=== PATIENT | male | born 1945 | race Caucasian/White ===

== ENCOUNTER 2022-06-18 15:21 | Emergency (ER) | payer OTHER ==
[~2022-06-18] VITALS: Ht 177.8 cm; Wt 76.2 kg
--- NOTE | 2022-06-18 15:26 | NUR ---
RAZ MALIK FROM [facility] FOR HYPERGLYCEMIA,"HIGH" AT 1130. ATTACHED TO MONITOR, PT VITALS ARE WITHIN NORMAL LIMITS. AWAITING MD ORDERS.
[2022-06-18] MEDS ORDERED: FAMO20TA8 PO (16:06)
[2022-06-18] MEDS ORDERED: ASPI-1169 PO (16:06)
[2022-06-18] MEDS ORDERED: GLUC1KIT IM (16:06)
[2022-06-18] MEDS ORDERED: ACET-868 PO (16:06)
[2022-06-18] MEDS ORDERED: CLOP75TA15 PO (16:06)
[2022-06-18] MEDS ORDERED: ATOR40TA PO (16:06)
[2022-06-18] MEDS ORDERED: LISI20TA30 PO (16:07)
[2022-06-18] MEDS ORDERED: MAGN400O6 PO (16:07)
[2022-06-18] MEDS ORDERED: INSU100V7 SQ (16:07)
[2022-06-18] MEDS ORDERED: INSU100V39 SQ (16:07)
[2022-06-18] MEDS ORDERED: METO25TA20 PO (16:07)
[2022-06-18] MEDS ORDERED: DEXT38GE12 PO (16:07)
[2022-06-18] MEDS ORDERED: INSU100V27 SQ (16:07)
[2022-06-18] MEDS ORDERED: ACET-2605 PO (16:07)
--- NOTE | 2022-06-18 17:14 | NUR ---
IV ESTABLISHED R UPPER ARM 20G. LABS DRAWN AND COLLECTED.
--- NOTE | 2022-06-18 17:18 | NUR ---
COVID TEST COLLECTED AND SENT
--- NOTE | 2022-06-18 17:30 | NUR ---
PT UNABLE TO PROVIDE URINE, URINAL AT BEDSIDE.
[2022-06-18 17:34] LABS: BASOPHILS % (AUTO) 0.1 % (0.0-2.0); HEMATOCRIT 40 % (39-51); LYMPHOCYTES # (AUTO) 1.3 K/uL (0.8-4.8); LYMPHOCYTES % (AUTO) 9.3 % (20.0-44.0); MEAN CORPUSCULAR HGB CONC 33 g/dl (31.0-36.0); MEAN CORPUSCULAR VOLUME 98 fL (80-96); MONOCYTES # (AUTO) 0.8 K/uL (0.1-1.30); MONOCYTES % (AUTO) 5.6 % (2.0-12.0); NEUTROPHILS # (AUTO) 12.2 K/uL (1.8-8.9); PLATELET COUNT (AUTO) 392 K/uL (150-450); RED BLOOD CELL COUNT(AUTO) 4.08 MIL/uL (4.5-6.0); WHITE BLOOD COUNT (AUTO) 14.4 K/uL (4.3-11.0)
[2022-06-18 17:51] LABS: ALANINE AMINOTRANSFERASE 16 U/L (12-78); ALBUMIN 3.9 g/dL (3.4-5.0); ALKALINE PHOSPHATASE 99 U/L (46-116); ASPARTATE AMINOTRANSFERASE 12 U/L (15-37); BILIRUBIN,DIRECT 0.1 mg/dL (0.0-0.2); BILIRUBIN,TOTAL 0.5 mg/dL (0.2-1.0); CALCIUM, SERUM 9.9 mg/dL (8.5-10.1); CARBON DIOXIDE 19 mmol/L (21-32); CHLORIDE 92 mmol/L (98-107); CREATININE 2.9 mg/dL (0.6-1.3); POTASSIUM 4.9 mmol/L (3.5-5.1); SODIUM SERUM 129 mmol/L (136-145); TOTAL PROTEIN, SERUM 7.5 g/dL (6.4-8.2); UREA NITROGEN, BLOOD 76 mg/dL (7-18)
[2022-06-18 17:55] LABS: GLUCOSE 592 mg/dL (74-106)
--- NOTE | 2022-06-18 18:00 | NUR ---
CALLED [facility] [phone] [place].
--- NOTE | 2022-06-18 18:09 | NUR ---
VS 111/50 PR70 SPO2 100% RR 18 DR. CHEN WILL CALL US BACK.
--- NOTE | 2022-06-18 18:24 | NUR ---
LAB CALLED. COVID POSITIVE DR OAKES AWARE
[2022-06-18] MEDS ORDERED: INSULIN REGULAR, HUMAN 100 UNIT/ML 10 ML VIAL SQ ONE (18:30)
[2022-06-18] MEDS ORDERED: IV PREMIX NS +20MEQ KCL 1 L IV PRN (18:30)
[2022-06-18] MEDS ORDERED: IV NS 0.9% 1,000 ML BAG IV ONE (18:30)
[2022-06-18] MEDS ORDERED: INSULIN REGULAR, HUMAN 100 UNIT/ML 10 ML VIAL ONE (18:36)
[2022-06-18] MEDS ORDERED: INSULIN REGULAR, HUMAN 100 UNITS in IV NS 0.9% 100 ML IV PRN ×2 (19:30)
--- NOTE | 2022-06-18 19:35 | NUR ---
RECHECKED GLU- 576 AWARE
--- NOTE | 2022-06-18 20:43 | NUR ---
ACCEPTED AT [facility] UNDER MD JARAMILLO, ROOM 6332, REPORT [phone] TRANSPORT ETA AROUND 2200 WILL CALL BACK IF LATER
[2022-06-18 20:57] LABS: CALCIUM, SERUM 8.8 mg/dL (8.5-10.1); CARBON DIOXIDE 13 mmol/L (21-32); CHLORIDE 97 mmol/L (98-107); CREATININE 2.7 mg/dL (0.6-1.3); POTASSIUM 5.3 mmol/L (3.5-5.1); SODIUM SERUM 129 mmol/L (136-145); UREA NITROGEN, BLOOD 74 mg/dL (7-18)
[2022-06-18 21:00] LABS: GLUCOSE 582 mg/dL (74-106)
--- NOTE | 2022-06-18 21:00 | NUR ---
GLUCOSE 582; DR. VIOLETTE GUNN AWARE
--- NOTE | 2022-06-18 21:02 | NUR ---
Se rios in ED - 06/18/22 at 2104 by CHRISS [phone]. PATIENT INSPECTOR PACKER TIME 2330H. CN MADE AWARE.
--- NOTE | 2022-06-18 21:04 | NUR ---
RECEIVED CALL FROM LINDA ([facility]) [phone]. PATIENT AUDIO VIDEO REPAIRER TIME 2330H. CN MADE AWARE.
--- NOTE | 2022-06-18 21:50 | NUR ---
REPORT GIVEN TO YVONNE GILLETTE [facility] ROOM 7302 FOR JAI
--- NOTE | 2022-06-18 22:09 | NUR ---
RECHECKED GLU- 370 AWARE
--- NOTE | 2022-06-18 22:10 | NUR ---
ORDERS TO DISCONTINUE INSULIN INF. IF BLOOD GLUCOSE IS 250
--- NOTE | 2022-06-18 22:15 | NUR ---
URINE SAMPLE SENT TO LAB
--- NOTE | 2022-06-18 22:21 | NUR ---
UPDATED ROOM NUMBER: [id number]
[2022-06-18 22:55] LABS: BILIRUBIN,URINE 1+ (NEGATIVE); COLOR,URINE YELLOW (YELLOW); LEUKOCYTE ESTERASE ,URINE NEGATIVE (NEGATIVE); NITRITE, URINE NEGATIVE (NEGATIVE); PH,URINE 5.5 (5.0-8.0); PROTEIN,URINE NEGATIVE (NEGATIVE); UGLUCOSE 3+ mg/dL (NEGATIVE); UROBILINOGEN,URINE 0.2 EU/dL (0.2)
[2022-06-18 23:02] LABS: BACTERIA,URINE Rare /HPF (None Seen); SQUAMOUS EPITHELIAL CELL,UR Few /HPF (None Seen); WBC,URINE 0-2 /HPF (0-3)
--- NOTE | 2022-06-18 23:23 | NUR ---
RECHECKED GLU- 279 INSULIN INF. DISCONTINUED.
--- NOTE | 2022-06-18 23:42 | NUR ---
REPORT GIVEN TO EMS AT BEDSIDE
[2022-06-18 23:43] VITALS: BP 136/75
== END 2022-06-18 23:43 | disposition short-term general hospital (02) ==
LOC: ER 15:27
DX: E11.10 Type 2 diabetes mellitus with ketoacidosis without coma (principal); U07.1 COVID-19; Z79.4 Long term (current) use of insulin; E11.22 Type 2 diabetes mellitus with diabetic chronic kidney disease; N18.9 Chronic kidney disease, unspecified; F03.90 Unspecified dementia, unspecified severity, without behavioral disturbance, psychotic disturbance, mood disturbance, and anxiety; I25.10 Atherosclerotic heart disease of native coronary artery without angina pectoris; Z95.5 Presence of coronary angioplasty implant and graft; K21.9 Gastro-esophageal reflux disease without esophagitis; Z86.73 Personal history of transient ischemic attack (TIA), and cerebral infarction without residual deficits; I10 Essential (primary) hypertension; E11.51 Type 2 diabetes mellitus with diabetic peripheral angiopathy without gangrene; M81.0 Age-related osteoporosis without current pathological fracture; Z79.899 Other long term (current) drug therapy; Z79.82 Long term (current) use of aspirin; Z79.02 Long term (current) use of antithrombotics/antiplatelets
CPT/HCPCS: 99291; 96365; 96366; 71045; 96361; 87426; 93005; 85025; 80048 ×2; 87086; 83605; 80076; 81001; 36415; 84484; 82962 ×5; 96372; J7030; J3490; C9803; J1815 ×2

== ENCOUNTER 2022-07-14 03:19 | Emergency (ER) | payer OTHER ==
[~2022-07-14] VITALS: Ht 177.8 cm; Wt 76.2 kg
[~2022-07-14 03:19] MED LIST: ACET-2605 PO; ACET-868 PO; ASPI-1169 PO; ATOR40TA PO; CLOP75TA15 PO; DEXT38GE12 PO; FAMO20TA8 PO; GLUC1KIT IM; INSU100V27 SQ; INSU100V39 SQ; INSU100V7 SQ; LISI20TA30 PO; MAGN400O6 PO; METO25TA20 PO
--- NOTE | 2022-07-14 03:40 | NUR ---
CHIKIS FROM [facility] C/O R HIP FX. NO FALL OR TRAUMA NOTED. +BLOOD THINNERS, COVID +. PATIENT IS AAOX4. ABLE TO MAKE NEEDS KNOWN. ATTACHED TO MONITOR. VITALS CHECKED. PATIENT - SOB, -CP. PAIN IS MORE ON RIGHT HIP.
--- NOTE | 2022-07-14 03:55 | NUR ---
COVID SWAB DONE AND SENT TO LAB
--- NOTE | 2022-07-14 03:56 | NUR ---
COOPER APPRENTICE AT BEDSIDE
--- NOTE | 2022-07-14 04:01 | NUR ---
IV RFA #20G S/L; PATENT AND INTACT.
--- NOTE | 2022-07-14 04:02 | NUR ---
BENCH ASSEMBLY INSPECTOR AT PT'S BEDSIDE
[2022-07-14 04:12] LABS: POTASSIUM 3.9 mmol/L (3.5-5.1)
[2022-07-14 04:13] LABS: CALCIUM, SERUM 8.5 mg/dL (8.5-10.1); CREATININE 0.8 mg/dL (0.6-1.3)
[2022-07-14 04:15] LABS: BASOPHILS % (AUTO) 0.4 % (0.0-2.0); EOSINOPHILS % (AUTO) 0.9 % (0.0-6.0); HEMATOCRIT 39 % (39-51); HEMOGLOBIN 13.3 g/dL (13.5-17.5); LYMPHOCYTES # (AUTO) 1.2 K/uL (0.8-4.8); LYMPHOCYTES % (AUTO) 14.4 % (20.0-44.0); MEAN CORPUSCULAR HGB CONC 34 g/dl (31.0-36.0); MEAN CORPUSCULAR VOLUME 94 fL (80-96); MONOCYTES # (AUTO) 0.8 K/uL (0.1-1.30); MONOCYTES % (AUTO) 10.4 % (2.0-12.0); NEUTROPHILS % (AUTO) 73.9 % (43.0-81.0); PLATELET COUNT (AUTO) 246 K/uL (150-450); RED BLOOD CELL COUNT(AUTO) 4.19 MIL/uL (4.5-6.0); WHITE BLOOD COUNT (AUTO) 8.1 K/uL (4.3-11.0)
--- NOTE | 2022-07-14 04:58 | NUR ---
[facility] PAGED, AWAITING DR TORRES BACK
[2022-07-14] MEDS ORDERED: ONDANSETRON HCL/PF 4 MG/2 ML VIAL IV ONE (05:30)
[2022-07-14] MEDS ORDERED: MORPHINE SULFATE INJ 2 MG/ML DISP.SYRIN IV ONE (05:30)
--- NOTE | 2022-07-14 06:00 | NUR ---
PT RETURNED TO ER BED [address]
[2022-07-14] MEDS ORDERED: MORPHINE SULFATE INJ 2 MG/ML DISP.SYRIN ONE (06:42)
[2022-07-14] MEDS ORDERED: ONDANSETRON HCL/PF 4 MG/2 ML VIAL ONE (06:42)
--- NOTE | 2022-07-14 07:15 | NUR ---
RECEIVED PT FROM SUKI GILLETTE
--- NOTE | 2022-07-14 07:23 | NUR ---
PT ACCEPTED TO [facility] UNDER PARVEEN LOPEZ PLEASE CALL [phone] FOR REPORT. TRANSPORT WILL BE [facility] ETA IS 0820 PER KAMINI.
--- NOTE | 2022-07-14 07:57 | NUR ---
vital signs: BP 116/60, HR 100, 16 RR, T 97.9 F , 100% O2 on room air
--- NOTE | 2022-07-14 09:30 | NUR ---
EMT AT BEDSIDE TO PICKUP PT. ENDORSEMENT GIVEN BY NAIN ANGELA, TO MEGAN GILLETTEBIT SETTER.
--- NOTE | 2022-07-14 09:33 | NUR ---
Patient Tranfers to outside Facility Physician: Thee Location: [facility] ER Report was given to receiving facility and to transporting ambulance staff. All paperwork provided to transporting staff. Patient signed consent form agreeing to transport.
[2022-07-14 09:35] VITALS: BP 116/60
== END 2022-07-14 09:37 | disposition short-term general hospital (02) ==
LOC: ER 03:26
DX: S72.034A Nondisplaced midcervical fracture of right femur, initial encounter for closed fracture (principal); X83.8XXA Intentional self-harm by other specified means, initial encounter; Y92.129 Unspecified place in nursing home as the place of occurrence of the external cause; F03.90 Unspecified dementia, unspecified severity, without behavioral disturbance, psychotic disturbance, mood disturbance, and anxiety; E11.51 Type 2 diabetes mellitus with diabetic peripheral angiopathy without gangrene; I25.10 Atherosclerotic heart disease of native coronary artery without angina pectoris; K21.9 Gastro-esophageal reflux disease without esophagitis; Z20.822 Contact with and (suspected) exposure to COVID-19; E78.5 Hyperlipidemia, unspecified; I10 Essential (primary) hypertension; Z86.73 Personal history of transient ischemic attack (TIA), and cerebral infarction without residual deficits; Z79.4 Long term (current) use of insulin; Z79.02 Long term (current) use of antithrombotics/antiplatelets; Z79.899 Other long term (current) drug therapy; R94.31 Abnormal electrocardiogram [ECG] [EKG]; E04.1 Nontoxic single thyroid nodule; M81.0 Age-related osteoporosis without current pathological fracture
CPT/HCPCS: 99285; 72125; 96374; 71045; 96375; 87426; 93005; 73502; 70450; 85025; 80048; 36415; 85730; J2405; J2270; C9803

== ENCOUNTER 2022-10-30 11:16 | Inpatient (IN) | payer OTHER ==
[~2022-10-30] VITALS: Ht 188 cm; Wt 54.0 kg
[2022-10-30] MEDS ORDERED: ONDANSETRON HCL/PF 4 MG/2 ML VIAL IVP ONE (11:30)
[2022-10-30] MEDS ORDERED: IV NS 0.9% 1,000 ML BAG IV ONE (11:30)
[2022-10-30] MEDS ORDERED: ONDANSETRON HCL/PF 4 MG/2 ML VIAL ONE (11:35)
--- NOTE | 2022-10-30 11:39 | NUR ---
called [facility] and opened up a case for the pt
--- NOTE | 2022-10-30 12:12 | NUR ---
PT IN BED 6, A/O X1 TOLOERATING ROOM AIR 100%. C/O HYPERGLYCEMIA BG GREATER THAN 600+ Hx DM 2, VITALS WNL. ABG DONE SHOWS METABOLIC ACIDOSIS. BED LOCKED IN LOWEST POSTION IN FOLWERS POSITION, SIDE RAILS UP. FROM [facility].
--- NOTE | 2022-10-30 12:20 | NUR ---
20G LAC BLOOD DRAWN AND SENT TO LAB
--- NOTE | 2022-10-30 12:21 | NUR ---
CHEST X RAY TAKEN
[2022-10-30 12:34] LABS: BASOPHILS % (AUTO) 0.2 % (0.0-2.0); HEMATOCRIT 44 % (39-51); LYMPHOCYTES # (AUTO) 2.1 K/uL (0.8-4.8); LYMPHOCYTES % (AUTO) 10.3 % (20.0-44.0); MEAN CORPUSCULAR HGB CONC 32 g/dl (31.0-36.0); MEAN CORPUSCULAR VOLUME 103 fL (80-96); MONOCYTES # (AUTO) 1.1 K/uL (0.1-1.30); MONOCYTES % (AUTO) 5.6 % (2.0-12.0); NEUTROPHILS # (AUTO) 16.8 K/uL (1.8-8.9); NEUTROPHILS % (AUTO) 83.9 % (43.0-81.0); PLATELET COUNT (AUTO) 532 K/uL (150-450); RED BLOOD CELL COUNT(AUTO) 4.27 MIL/uL (4.5-6.0)
[2022-10-30 13:43] LABS: CARBON DIOXIDE 13 mmol/L (21-32); CHLORIDE 85 mmol/L (98-107); POTASSIUM 6.1 mmol/L (3.5-5.1); SODIUM SERUM 127 mmol/L (136-145)
[2022-10-30 13:44] LABS: CALCIUM, SERUM 10.2 mg/dL (8.5-10.1)
[2022-10-30 13:45] LABS: ALANINE AMINOTRANSFERASE 78 U/L (12-78); ALKALINE PHOSPHATASE 254 U/L (46-116); ASPARTATE AMINOTRANSFERASE 29 U/L (15-37); BILIRUBIN,DIRECT 0.1 mg/dL (0.0-0.2); BILIRUBIN,TOTAL 0.5 mg/dL (0.2-1.0); CREATININE 1.9 mg/dL (0.6-1.3); LIPASE 856 U/L (73-393); TOTAL PROTEIN, SERUM 7.9 g/dL (6.4-8.2); UREA NITROGEN, BLOOD 42 mg/dL (7-18)
[2022-10-30 13:46] LABS: GLUCOSE 854 mg/dL (74-106)
[2022-10-30] MEDS ORDERED: INSULIN REGULAR, HUMAN 100 UNITS in IV NS 0.9% 100 ML IV PRN ×2 (14:00)
[2022-10-30] MEDS ORDERED: IV NS 0.9% 1,000 ML IV PRN ×2 (14:00→15:00)
[2022-10-30 14:09] LABS: BILIRUBIN,URINE NEGATIVE (NEGATIVE); COLOR,URINE YELLOW (YELLOW); LEUKOCYTE ESTERASE ,URINE NEGATIVE (NEGATIVE); NITRITE, URINE NEGATIVE (NEGATIVE); PH,URINE 5.5 (5.0-8.0); PROTEIN,URINE NEGATIVE (NEGATIVE); UGLUCOSE 3+ mg/dL (NEGATIVE); UROBILINOGEN,URINE 0.2 EU/dL (0.2)
[2022-10-30] MEDS ORDERED: PIPERACILLIN /TAZOBACTAM 3.375 G in IV D5W 50 ML IV ONE (14:30)
[2022-10-30] MEDS ORDERED: IV NS 0.9% 1,000 ML IV ONE (14:30)
[2022-10-30 14:41] LABS: CALCIUM, SERUM 9.6 mg/dL (8.5-10.1); CHLORIDE 90 mmol/L (98-107); CREATININE 1.7 mg/dL (0.6-1.3); MAGNESIUM 2.8 mg/dL (1.8-2.4); PHOSPHORUS 5.3 mg/dL (2.5-4.9); POTASSIUM 6.1 mmol/L (3.5-5.1); SODIUM SERUM 128 mmol/L (136-145); UREA NITROGEN, BLOOD 39 mg/dL (7-18)
[2022-10-30 14:44] LABS: CARBON DIOXIDE 10 mmol/L (21-32)
[2022-10-30 14:45] LABS: GLUCOSE 700 mg/dL (74-106)
--- NOTE | 2022-10-30 14:51 | NUR ---
room [facility]
[2022-10-30] MEDS ORDERED: ZOLPIDEM TARTRATE 5 MG TABLET PO PRN (15:00)
[2022-10-30] MEDS ORDERED: ACETAMINOPHEN 325 MG TABLET PO PRN (15:00)
[2022-10-30] MEDS ORDERED: MAG HYDROX/AL HYDROX/SIMETH 30 ML UDC PO PRN (15:00)
[2022-10-30] MEDS ORDERED: Z GUARD REMEDY 4 OZ OINT TP PRN (15:00)
[2022-10-30] MEDS ORDERED: ONDANSETRON HCL/PF 4 MG/2 ML VIAL IVP PRN (15:00)
[2022-10-30] MEDS: BLOOD SUGAR DIAGNOSTIC 1 EACH STRIP IN SCH ×9 (15:00→23:11)
[2022-10-30] MEDS ORDERED: MAGNESIUM HYDROXIDE 30 ML UDC PO PRN (15:00)
[2022-10-30] MEDS ORDERED: DEXTROSE 50%-WATER 50 ML DISP.SYRIN ONE (15:04)
[2022-10-30] MEDS ORDERED: ASCO-352 PO (15:10)
[2022-10-30] MEDS ORDERED: MULT-447 PO (15:10)
[2022-10-30] MEDS ORDERED: ZINC50TA39 PO (15:10)
[2022-10-30] MEDS ORDERED: NA P133E RC (15:10)
[2022-10-30] MEDS ORDERED: ACET-868 PO (15:10)
[2022-10-30] MEDS ORDERED: MAG30ORA PO (15:10)
[2022-10-30 16:11] LABS: BAND % (MANUAL) 1 % (0.0-5.0); LYMPHOCYTES % (MANUAL) 18 % (16-48); MONOCYTES % (MANUAL) 9 % (0-11.0); NEUTROPHILS % (MANUAL) 72 (42-76)
[2022-10-30 16:18] LABS: CALCIUM, SERUM 9.1 mg/dL (8.5-10.1); CARBON DIOXIDE 14 mmol/L (21-32); CHLORIDE 97 mmol/L (98-107); CREATININE 1.7 mg/dL (0.6-1.3); MAGNESIUM 2.4 mg/dL (1.8-2.4); PHOSPHORUS 4.4 mg/dL (2.5-4.9); POTASSIUM 5.1 mmol/L (3.5-5.1); SODIUM SERUM 134 mmol/L (136-145); UREA NITROGEN, BLOOD 37 mg/dL (7-18)
[2022-10-30 16:19] LABS: GLUCOSE 569 mg/dL (74-106)
--- NOTE | 2022-10-30 16:24 | NUR ---
CALLED ICU TO GIVE REPORT, PRIMARY IS OUT ON LUNCH NO ONE AVAILABLE TO TAKE REPORT
--- NOTE | 2022-10-30 17:10 | NUR ---
HAND OFF REPORT GIVEN TO ANTHONY GILLETTE
[2022-10-30] MEDS ORDERED: INSULIN REGULAR, HUMAN 100 UNIT in IV NS 0.9% 99 ML IV PRN ×2 (18:00)
[2022-10-30] MEDS ORDERED: LORAZEPAM INJ 2 MG/ML VIAL IV PRN (18:30)
[2022-10-30 18:35] LABS: CARBON DIOXIDE 16 mmol/L (21-32); CHLORIDE 101 mmol/L (98-107); CREATININE 1.6 mg/dL (0.6-1.3); MAGNESIUM 2.4 mg/dL (1.8-2.4); PHOSPHORUS 3.7 mg/dL (2.5-4.9); POTASSIUM 5.4 mmol/L (3.5-5.1); SODIUM SERUM 135 mmol/L (136-145); UREA NITROGEN, BLOOD 34 mg/dL (7-18)
[2022-10-30 18:44] LABS: GLUCOSE 379 mg/dL (74-106)
[2022-10-30 19:00] VITALS: BP 115/50
--- NOTE | 2022-10-30 19:30 | NUR ---
EXECUTIVE CYBER LEADER OPENING NOTES: RECEIVED PT IN BED, AWAKE, ALERT/ORIENTED X1-2 WITH CONFUSION AND RESPONSIVE TO PAINFUL STIMULI. ON ROOM AIR AND PT TOLERATED WELL. O2 SAT 100%. IV ACCESS ON RT FOREARM#20G AND LAC#20G INTACT AND PATENT. NO S/S OF INFILTRATIONS. BLOOD SUGAR 344. DECREASED TO 5.16 U/HR. NO S/S OF HYPER/HYPOGLYCEMIA. NO FACIAL GRIMACING NOTED. NO ACUTE DISTRESS. BILATERAL SOFT RESTRAINTS ON. MOROCHO CATHETER IN PLACE. DRAINING BY GRAVITY. NOTED YELLOWISH/CLEAR URINE. ALL SAFETY MEASURES IN PLACE.SIDE RAILS UP X3, BED IN LOWEST POSITION AND LOCKED. PLACE CALL LIGHT WITH IN REACH. WILL CONTINUE TO MONITOR
[2022-10-30 20:00] VITALS: BP 121/66
[2022-10-30] MEDS: ZOSYN IVPB 3.375 G in IV D5W 50ml IV SCH (20:26)
--- NOTE | 2022-10-30 20:28 | NUR ---
RN NOTES: PT'S BLOOD SUGAR 200. DECREASED TO 3 U/HR. NO S/S OF HYPER/HYPOGLYCEMIA. WILL CONTINUE TO MONITOR
--- NOTE | 2022-10-30 20:40 | NUR ---
RN NOTES: PT NOTED WITH AGITATION, TRYING TO REMOVE THE RESTRAINT. KEPT GETTING UP. ATIVAN 0.5 ML GIVEN AND PT TOLERATED WELL. WILL CONTINUE TO MONITOR
[2022-10-30 20:56] LABS: CALCIUM, SERUM 9.1 mg/dL (8.5-10.1); CARBON DIOXIDE 22 mmol/L (21-32); CHLORIDE 105 mmol/L (98-107); CREATININE 1.7 mg/dL (0.6-1.3); GLUCOSE 142 mg/dL (74-106); POTASSIUM 4.2 mmol/L (3.5-5.1); SODIUM SERUM 139 mmol/L (136-145); UREA NITROGEN, BLOOD 32 mg/dL (7-18)
[2022-10-30 21:00] VITALS: BP 113/56
--- NOTE | 2022-10-30 21:20 | NUR ---
RN NOTES: PT'S BLOOD SUGAR 156. DECREASED TO 2.34 UNITS/HR. NO S/S OF HYPER/HYPOGLYCEMIA. WILL CONTINUE TO MONITOR
[2022-10-30 22:00] VITALS: BP 113/57
[2022-10-30] MEDS ORDERED: IV D5/ 0.9% NACL 1,000 ML IV PRN (22:30)
--- NOTE | 2022-10-30 22:30 | NUR ---
RN NOTES: PT'S BLOOD SUGAR 156. DECREASED TO 1.96 U/HR. NO S/S OF HYPER/HYPOGLYCEMIA. NOTIFIED DR. ROGELIO EPSTEIN REGARDING PT'S RECENT BS AND LAB RESULTS. ORDER TO CHANGE NS TO D5NS AT 100CC/HR. ORDER NOTED AND CARRIED OUT. WILL CONTINUE TO MONITOR
[2022-10-30 23:00] VITALS: BP 107/59
--- NOTE | 2022-10-30 23:14 | NUR ---
RN NOTES: PT'S BLOOD SUGAR 99. DECREASED TO 1.48 U/HR. ON D5NS AT 100CC/HR. NO S/S OF HYPER/HYPOGLYCEMIA. WILL CONTINUE TO MONITOR
[2022-10-31] VITALS (12 sets, daily range): BP systolic 97–136; BP diastolic 31–86
[2022-10-31] MEDS: BLOOD SUGAR DIAGNOSTIC 1 EACH STRIP IN SCH ×7 (00:17→17:52)
[2022-10-31 00:27] LABS: CALCIUM, SERUM 8.7 mg/dL (8.5-10.1); CARBON DIOXIDE 24 mmol/L (21-32); CHLORIDE 107 mmol/L (98-107); CREATININE 1.5 mg/dL (0.6-1.3); GLUCOSE 84 mg/dL (74-106); POTASSIUM 4.4 mmol/L (3.5-5.1); SODIUM SERUM 141 mmol/L (136-145); UREA NITROGEN, BLOOD 31 mg/dL (7-18)
--- NOTE | 2022-10-31 00:28 | NUR ---
RN NOTES: PT'S BLOOD SUGAR 130. INCREASED TO 1.95 U/HR. ON D5NS AT 100CC/HR. NO S/S OF HYPER/HYPOGLYCEMIA. WILL CONTINUE TO MONITOR
[2022-10-31] MEDS ORDERED: IV D5/ 0.9% NACL 1,000 ML IV SCH (01:00)
[2022-10-31] MEDS ORDERED: INSULIN GLARGINE, 100 UNIT/ML CARTRIDGE SQ SCH ×2 (01:15→09:00)
--- NOTE | 2022-10-31 01:25 | NUR ---
CONSUMER ATTORNEY NOTES: NOTIFIED LUCIAN JENKINS REGARDING MIDNIGHT LAB RESULT. ANION GAP 14. ORDER- D5NS AT 150CC/HR UNTIL 0300 THEN D/C, THEN START NS AT 100CC/HR AT 0300. GIVEN LANTUS 10 UNITS NOW. D/C INSULIN DRIP AFTER 2 HOURS AT 0300. START TOMORROW LANTUS 15 UNITS BID. ACCU-CHECK Q6 HOURS WITH MODERATE SLIDING SCALE. ALL ORDERS NOTED AND CARRIED OUT.
[2022-10-31] MEDS ORDERED: DEXTROSE 50%-WATER 50 ML DISP.SYRIN IV PRN ×2 (01:30→09:30)
[2022-10-31] MEDS ORDERED: IV NS 0.9% 1,000 ML IV PRN (01:30)
--- NOTE | 2022-10-31 01:30 | NUR ---
RN NOTES: PT'S BLOOD SUGAR 142. DECREASED TO 2.13 U/HR. ON D5NS AT 150CC/HR. NO S/S OF HYPER/HYPOGLYCEMIA. WILL CONTINUE TO MONITOR
[2022-10-31] MEDS ORDERED: INSULIN GLARGINE, 100 UNIT/ML CARTRIDGE SQ ONE (01:35)
--- NOTE | 2022-10-31 02:36 | NUR ---
RN NOTES: PT'S BLOOD SUGAR 132. DECREASED TO 1.98 U/HR. ON D5NS AT 150CC/HR. NO S/S OF HYPER/HYPOGLYCEMIA. WILL CONTINUE TO MONITOR
[2022-10-31] MEDS: ZOSYN IVPB 3.375 G in IV D5W 50ml IV SCH ×3 (02:54→14:15)
--- NOTE | 2022-10-31 03:00 | NUR ---
RN NOTES: COMPLETED INSULIN DRIP. D/C ACCU-CHECK Q1H AND INSULIN DRIP PER DR.S ORDER. WILL CONTINUE TO MONITOR
[2022-10-31 05:54] LABS: BASOPHILS % (AUTO) 0.1 % (0.0-2.0); HEMATOCRIT 33 % (39-51); HEMOGLOBIN 11.2 g/dL (13.5-17.5); LYMPHOCYTES # (AUTO) 1.7 K/uL (0.8-4.8); LYMPHOCYTES % (AUTO) 11.5 % (20.0-44.0); MEAN CORPUSCULAR HGB CONC 34 g/dl (31.0-36.0); MEAN CORPUSCULAR VOLUME 98 fL (80-96); MONOCYTES # (AUTO) 1.2 K/uL (0.1-1.30); MONOCYTES % (AUTO) 8.2 % (2.0-12.0); NEUTROPHILS # (AUTO) 11.5 K/uL (1.8-8.9); NEUTROPHILS % (AUTO) 80.2 % (43.0-81.0); PLATELET COUNT (AUTO) 379 K/uL (150-450); WHITE BLOOD COUNT (AUTO) 14.4 K/uL (4.3-11.0)
[2022-10-31] MEDS ORDERED: INSULIN REGULAR, HUMAN 100 UNIT/ML 3 ML VIAL SQ PRN ×2 (06:00→09:30)
[2022-10-31 06:48] LABS: CALCIUM, SERUM 9.3 mg/dL (8.5-10.1); CARBON DIOXIDE 23 mmol/L (21-32); CHLORIDE 105 mmol/L (98-107); CREATININE 1.5 mg/dL (0.6-1.3); GLUCOSE 199 mg/dL (74-106); MAGNESIUM 2.3 mg/dL (1.8-2.4); PHOSPHORUS 2.9 mg/dL (2.5-4.9); POTASSIUM 4.3 mmol/L (3.5-5.1); SODIUM SERUM 141 mmol/L (136-145); UREA NITROGEN, BLOOD 30 mg/dL (7-18)
--- NOTE | 2022-10-31 06:51 | NUR ---
COMMERCIAL LITIGATION ATTORNEY CLOSING NOTES: PT IN BED, SLEEPING BUT EASILY AROUSABLE, ALERT/ORIENTED X1-2 WITH CONFUSION AND RESPONSIVE TO PAINFUL STIMULI. ON ROOM AIR AND PT TOLERATED WELL. O2 SAT 100%%. IV ACCESS ON RT FOREARM#20G AND LAC#20G INTACT AND PATENT. NO S/S OF INFILTRATIONS. BLOOD SUGAR 183. 3 UNITS OF REGULAR INSULIN GIVEN. NO S/S OF HYPER/HYPOGLYCEMIA. NO FACIAL GRIMACING NOTED. NO ACUTE DISTRESS. BILATERAL SOFT RESTRAINTS ON. RELEASED Q 2 HOURS TO ASSESS CIRCULATIONS. MOROCHO CATHETER IN PLACE. DRAINING BY GRAVITY. NOTED YELLOWISH/CLEAR URINE. ALL DUE MEDS GIVEN ORDERED. ALL SAFETY MEASURES IN PLACE.SIDE RAILS UP X3, BED IN LOWEST POSITION AND LOCKED. PLACE CALL LIGHT WITH IN REACH. WILL ENDORSE TO MORNING SHIFT NURSE.
--- NOTE | 2022-10-31 07:30 | NUR ---
research agricultural engineer opening note received pt asleep in bed. pt on room air tolerating at 97%. pt is alert and oriented x1 with periods of confusion. pt on icu monitor current reading sinus rhythm 65. pt has Clancy catheter. yellow color draining to gravity.pt has right forearm 20 gauge and left ac 20 guage. pt on soft bilateral wrist restraints. no skin or circulation issues noted at this time. all safety measures in place. call light within reach. bed locked at lowest position. side rails up x2. bed alarm on
--- NOTE | 2022-10-31 07:33 | NUR ---
WOUND CARE CONSULT: REVIEWED CHART, NURSING DOCUMENTATION AND PHOTOS WHICH INDICATE SACRAL DEEP TISSUE INJURY AND RASH/REDNESS TO PENIS AND SCROTUM, PRESENT ON ADMISSION. RECOMMENDATIONS MADE FOR SKIN PROTECTION AND WOUND CARE. DISCUSSED WITH NURSING STAFF. MD IN AGREEMENT WITH PLAN OF CARE.
[2022-10-31] MEDS ORDERED: PANTOPRAZOLE 40 MG VIAL IV SCH (09:00)
--- NOTE | 2022-10-31 09:25 | NUR ---
rn note notified that pt is not eating and if okay to put him on npo insulin sliding scale. pt has 15 units lantus due now, asked if okay to hold at this time. okay to hold lantus at this time
[2022-10-31] MEDS: CLOTRIMAZOLE 1% 15 GM TUBE TP SCH ×2 (09:58→16:25)
[2022-10-31] MEDS ORDERED: IV D5/0.45 NACL 500 ML IV ONE (10:00)
[2022-10-31] MEDS ORDERED: IV D5/0.45 NACL 1,000 ML IV PRN (10:00)
--- NOTE | 2022-10-31 10:48 | NUR ---
rn note pt transferred to [facility] room 108. report given to [facility]
[2022-10-31] MEDS ORDERED: ENOXAPARIN SODIUM 40 MG/0.4 ML DISP.SYRIN SQ SCH (11:00)
[2022-10-31] MEDS: GLUCERNA SHAKE 237 ML CAN PO SCH ×2 (11:35→16:25)
[2022-10-31] MEDS: PROSOURCE / PROSTAT (PYXIS) 30 ML UDC GT SCH ×2 (12:25→16:24)
--- NOTE | 2022-10-31 13:44 | NUR ---
MRSA SPECIMEN TAKEN, INFORMED LAB
[2022-10-31 13:53] LABS: THYROID STIMULATING HORMONE 2.099 uIU/mL (0.358-3.74)
[2022-10-31] MEDS ORDERED: ACETAMINOPHEN ES 500 MG TABLET PO PRN (14:00)
[2022-10-31] MEDS ORDERED: NA PHOS,M-B/NA PHOS,DI-BA 1 EA ENEMA RC PRN (14:00)
[2022-10-31] MEDS ORDERED: MAGNESIUM HYDROXIDE 30 ML UDC PO PRN (14:00)
[2022-10-31] MEDS ORDERED: ACETAMINOPHEN 325 MG TABLET PO PRN (14:00)
[2022-10-31] MEDS ORDERED: MAG HYDROX/AL HYDROX/SIMETH 30 ML UDC PO PRN (14:00)
--- NOTE | 2022-10-31 15:24 | NUR ---
RECEIVED PATIENT IN BED, BILATERAL RESTRAINTS ARE ON, ASLEEP BUT AROUSABLE, NON SIGNS OF IN DISTRESS, UNLABORED BREATHING ON ROOM AIR, NO COMPLAINTS OF PAIN, SAFETY MEASURES APPLIED, BED IN LOW POSITION LOCKED, SIDE RAILS UPX3, CALL LIGHT WITHIN REACH.
[2022-10-31] MEDS ORDERED: GLUCAGON,HUMAN RECOMBINANT 1 MG/VIAL VIAL IM PRN (15:30)
--- NOTE | 2022-10-31 15:49 | NUR ---
CALLED A PERSON TO NOTIFY MELINA MADDOX THAT PATIENT WILL BE TRANSFERRED TO [facility].
--- NOTE | 2022-10-31 17:39 | NUR ---
PATIENT BLOOD SUGAR WAS 54, RECHECKED IT IT WAS 55, 2 CUPS OF ORANGE JUICE GIVEN, CHECKED AGAIN , BLOOD SUGAR IS 79.
[2022-10-31] MEDS ORDERED: ZINC SULFATE 220 MG CAPSULE PO SCH (18:00)
--- NOTE | 2022-10-31 18:57 | NUR ---
PATIENT IS AWAKE RESTING IN POSITION, STILL AGITATED, BILATERAL SOFT RESTRAINT IS IN PLACE. NO SIGNS OF IN DISTRESS, REFUSED DINNER, PATIENT WILL BE TRANSFER TO [facility],PICKUP TIME IS 0800PM [facility]. WILL ENDORSE TO ANDRZEJ GILLETTE.
[2022-10-31 19:20] LABS: CALCIUM, SERUM 9.2 mg/dL (8.5-10.1); CARBON DIOXIDE 18 mmol/L (21-32); CHLORIDE 110 mmol/L (98-107); CREATININE 1.4 mg/dL (0.6-1.3); GLUCOSE 110 mg/dL (74-106); POTASSIUM 3.4 mmol/L (3.5-5.1); SODIUM SERUM 140 mmol/L (136-145); UREA NITROGEN, BLOOD 25 mg/dL (7-18)
--- NOTE | 2022-10-31 20:11 | NUR ---
RN NOTE PATIENT DISCHARGE TO [facility] ROOM 1733. REPORT GIVEN TO ANT GILLETTE. TRANSFERRED WITH ENTOMOLOGY PROFESSOR VIA [facility]. A/OX1. ROOM AIR . MOROCHO CATHETER MAINTAINED. RFA AND LFA IV IN PLACE. ALL EXIT CARE GIVEN.
[2022-10-31] MEDS ORDERED: ATORVASTATIN 40 MG TABLET PO SCH (22:00)
[2022-11-01] MEDS ORDERED: ASPIRIN 81 MG TAB.CHEW PO SCH (09:00)
[2022-11-01] MEDS ORDERED: ASCORBIC ACID 500 MG TABLET PO SCH (09:00)
[2022-11-01] MEDS ORDERED: ACETAMINOPHEN 325 MG TABLET PO SCH (09:00)
[2022-11-01] MEDS ORDERED: MULTIVIT W/MINERALS 1 TAB TABLET PO SCH (09:00)
== END 2022-10-31 20:11 | disposition short-term general hospital (02) | DRG 637 ==
LOC: ER 11:16 → ICU 15:01 → MEDSG1 10-31 10:28
PROVIDERS: ADMIT Student in an Organized Health Care Education/Training Program; ATTEND Student in an Organized Health Care Education/Training Program
DX: E11.10 Type 2 diabetes mellitus with ketoacidosis without coma (principal); G92.8 Other toxic encephalopathy; U07.1 COVID-19; K85.90 Acute pancreatitis without necrosis or infection, unspecified; N17.0 Acute kidney failure with tubular necrosis; E87.1 Hypo-osmolality and hyponatremia; N13.30 Unspecified hydronephrosis; K21.9 Gastro-esophageal reflux disease without esophagitis; E11.51 Type 2 diabetes mellitus with diabetic peripheral angiopathy without gangrene; D75.839 Thrombocytosis, unspecified; E78.5 Hyperlipidemia, unspecified; I25.10 Atherosclerotic heart disease of native coronary artery without angina pectoris; F03.90 Unspecified dementia, unspecified severity, without behavioral disturbance, psychotic disturbance, mood disturbance, and anxiety; I10 Essential (primary) hypertension; M81.0 Age-related osteoporosis without current pathological fracture; Z95.5 Presence of coronary angioplasty implant and graft; Z79.4 Long term (current) use of insulin; Z79.02 Long term (current) use of antithrombotics/antiplatelets; Z79.899 Other long term (current) drug therapy; Z78.9 Other specified health status; Z86.73 Personal history of transient ischemic attack (TIA), and cerebral infarction without residual deficits
CPT/HCPCS: 36415; 36600; 71045-TC; 76705-TC; 76770-TC; 80048-TC; 80076-TC; 82010-TC; 82803-TC; 82962-TC; 83605-TC; 83690-TC; 83735-TC; 84100-TC; 84443-TC; 85025-TC; 85378-TC; 86140-TC; 87040-TC; A4223; C9113; G0378; J1650; J1815; J2060; J2405; J2543; J3490; J7030; J7042; J7060

== ENCOUNTER → 2023-01-12 | Emergency (ER) | payer OTHER ==
[~2023-01-12] VITALS: Ht 172.7 cm; Wt 67.1 kg
[~2023-01-12] MED LIST changes: +ACETAMINOPHEN ES 500 MG TABLET ONE; +ACETAMINOPHEN ES 500 MG TABLET PO ONE; +ASCO-352 PO; -CLOP75TA15 PO; +CT SWABBABLE VALVE TRANS SET 1 EA INFUS.SET MC ONE; -FAMO20TA8 PO; +IOHEXOL-300 100 ML VIAL IV ONE; +IV NS 0.9% 250 ML IV ONE; -LISI20TA30 PO; +MAG30ORA PO; -METO25TA20 PO; +MORPHINE SULFATE INJ 2 MG/ML DISP.SYRIN IV ONE; +MORPHINE SULFATE INJ 2 MG/ML DISP.SYRIN ONE; +MULT-447 PO; +NA P133E RC; +ZINC50TA39 PO
--- NOTE | 2023-01-12 11:18 | NUR ---
MICHAEL FROM [facility] FOR RIGHT SHOULDER NAD RIGHT HEEL PAIN C/O MECHANICAL FALL LAST NIGHT WHILE TRANSFERRING TO WHEELCHAIR DENIES LOC.
[2023-01-12 11:53] LABS: BASOPHILS % (AUTO) 0.2 % (0.0-2.0); HEMATOCRIT 37 % (39-51); HEMOGLOBIN 12.1 g/dL (13.5-17.5); LYMPHOCYTES # (AUTO) 1.4 K/uL (0.8-4.8); LYMPHOCYTES % (AUTO) 12.5 % (20.0-44.0); MEAN CORPUSCULAR HGB CONC 33 g/dl (31.0-36.0); MEAN CORPUSCULAR VOLUME 99 fL (80-96); MONOCYTES # (AUTO) 0.7 K/uL (0.1-1.30); NEUTROPHILS % (AUTO) 81.3 % (43.0-81.0); PLATELET COUNT (AUTO) 284 K/uL (150-450); RED BLOOD CELL COUNT(AUTO) 3.73 MIL/uL (4.5-6.0); WHITE BLOOD COUNT (AUTO) 11.1 K/uL (4.3-11.0)
--- NOTE | 2023-01-12 12:00 | NUR ---
IV LINE LEFT AC 22G
[2023-01-12 12:12] LABS: ALBUMIN 2.9 g/dL (3.4-5.0); BILIRUBIN,DIRECT 0.2 mg/dL (0.0-0.2); BILIRUBIN,TOTAL 0.8 mg/dL (0.2-1.0); CALCIUM, SERUM 8.7 mg/dL (8.5-10.1); CREATININE 0.9 mg/dL (0.6-1.3); POTASSIUM 4.1 mmol/L (3.5-5.1); TOTAL PROTEIN, SERUM 6.4 g/dL (6.4-8.2)
--- NOTE | 2023-01-12 12:21 | NUR ---
PT TAKEN TO CT
--- NOTE | 2023-01-12 13:22 | NUR ---
CALLED [facility] [phone] DR. CHAND WILL CALL US BACK.
--- NOTE | 2023-01-12 15:47 | NUR ---
PT GOING TO [facility] ED ACCEPTING , DR RUSSELL, NUMBER FOR REPORT [phone] [facility] ([facility]) ETA [id number]
--- NOTE | 2023-01-12 16:11 | NUR ---
GAVE REPORT TO [facility] [phone] SPOKE TO GUANAKO GILLETTE.
--- NOTE | 2023-01-12 16:21 | NUR ---
TPatient Tranfers to outside Facility EMERGENCY DEPARTMENT Location:[facility]
--- NOTE | 2023-01-12 16:21 | NUR ---
[facility] 139 AT BEDSIDE. GAVE REPORT AT BEDSIDE TO
[2023-01-12 18:40] VITALS: BP 146/71
--- NOTE | 2023-01-12 18:42 | NUR ---
. Written and verbal after care instructions given. Patient verbalizes understanding of instruction. Addendum: 01/12/23 at 1845 by STEVE PLEASE DELETE!
== END | disposition short-term general hospital (02) ==
LOC: ER 11:05
DX: S42.291A Other displaced fracture of upper end of right humerus, initial encounter for closed fracture (principal); S32.89XA Fracture of other parts of pelvis, initial encounter for closed fracture; M79.10 Myalgia, unspecified site; F03.90 Unspecified dementia, unspecified severity, without behavioral disturbance, psychotic disturbance, mood disturbance, and anxiety; I10 Essential (primary) hypertension; E78.5 Hyperlipidemia, unspecified; K21.9 Gastro-esophageal reflux disease without esophagitis; I25.10 Atherosclerotic heart disease of native coronary artery without angina pectoris; E11.9 Type 2 diabetes mellitus without complications; Z20.822 Contact with and (suspected) exposure to COVID-19; Z79.899 Other long term (current) drug therapy; Z79.82 Long term (current) use of aspirin; W19.XXXA Unspecified fall, initial encounter; Y93.89 Activity, other specified; Y92.89 Other specified places as the place of occurrence of the external cause; Y99.8 Other external cause status
CPT/HCPCS: 99285; 72125; 96374; 87426; 73502; 73030; 71260; 70450; 74177; 85025; 80048; 80076; 36415; 84484; 85730; J7050; J2270; Q9967; C9803

== ENCOUNTER 2023-03-03 23:59 | Emergency (ER) | payer OTHER ==
[~2023-03-03] VITALS: Ht 177.8 cm; Wt 62.6 kg
[~2023-03-03 23:59] MED LIST changes: -ACETAMINOPHEN ES 500 MG TABLET ONE; -ACETAMINOPHEN ES 500 MG TABLET PO ONE; -CT SWABBABLE VALVE TRANS SET 1 EA INFUS.SET MC ONE; -IOHEXOL-300 100 ML VIAL IV ONE; -IV NS 0.9% 250 ML IV ONE; -MORPHINE SULFATE INJ 2 MG/ML DISP.SYRIN IV ONE; -MORPHINE SULFATE INJ 2 MG/ML DISP.SYRIN ONE
--- NOTE | 2023-03-04 00:08 | NUR ---
CHIKIS FROM [facility] FOR HYPERGLYCEMIA. 5PM BS CHECK 400, INSULIN 9 UNITS ADMIN. 8PM BS READ "HI". PT DENIES S/SX. AAOX3. ATTACHED TO THE MONITOR.
--- NOTE | 2023-03-04 00:23 | NUR ---
PROVIDE PT WITH URINE CUP; AWAITING URINE SAMPLE
[2023-03-04] MEDS ORDERED: IV NS 0.9% 1,000 ML IV ONE (00:30)
--- NOTE | 2023-03-04 00:45 | NUR ---
ESTABLISHED IV AT L FOREARM 20G. BLOOD DRAWN AND SENT TO LAB.
[2023-03-04 00:58] LABS: BASOPHILS # (AUTO) 0.1 K/uL (0.0-0.2); BASOPHILS % (AUTO) 0.7 % (0.0-2.0); EOSINOPHILS % (AUTO) 1.1 % (0.0-6.0); HEMATOCRIT 37 % (39-51); LYMPHOCYTES # (AUTO) 2.4 K/uL (0.8-4.8); LYMPHOCYTES % (AUTO) 22.1 % (20.0-44.0); MEAN CORPUSCULAR HGB CONC 33 g/dl (31.0-36.0); MEAN CORPUSCULAR VOLUME 99 fL (80-96); MONOCYTES # (AUTO) 0.6 K/uL (0.1-1.30); MONOCYTES % (AUTO) 5.8 % (2.0-12.0); NEUTROPHILS # (AUTO) 7.8 K/uL (1.8-8.9); NEUTROPHILS % (AUTO) 70.3 % (43.0-81.0); PLATELET COUNT (AUTO) 351 K/uL (150-450); WHITE BLOOD COUNT (AUTO) 11.1 K/uL (4.3-11.0)
[2023-03-04 01:08] LABS: CREATININE 1.1 mg/dL (0.6-1.3); POTASSIUM 5.4 mmol/L (3.5-5.1)
[2023-03-04] MEDS ORDERED: INSULIN REGULAR, HUMAN 100 UNIT/ML 10 ML VIAL ONE (01:14)
[2023-03-04] MEDS ORDERED: INSULIN REGULAR, HUMAN 100 UNIT/ML 10 ML VIAL IV ONE (01:30)
--- NOTE | 2023-03-04 01:42 | NUR ---
called [facility] and opened a case
--- NOTE | 2023-03-04 01:46 | NUR ---
DR COKER FROM [facility] ON THE PHONE WITH Judy OAKES
--- NOTE | 2023-03-04 01:56 | NUR ---
EMT TECH AT BEDSIDE FOR EKG.
--- NOTE | 2023-03-04 02:09 | NUR ---
BLOOD GLUCOSE: 504
[2023-03-04 03:33] LABS: BILIRUBIN,URINE NEGATIVE (NEGATIVE); COLOR,URINE YELLOW (YELLOW); LEUKOCYTE ESTERASE ,URINE NEGATIVE (NEGATIVE); NITRITE, URINE NEGATIVE (NEGATIVE); PH,URINE 5.5 (5.0-8.0); PROTEIN,URINE NEGATIVE (NEGATIVE); UGLUCOSE 3+ mg/dL (NEGATIVE); UROBILINOGEN,URINE 0.2 EU/dL (0.2)
[2023-03-04 03:42] LABS: ALBUMIN 2.8 g/dL (3.4-5.0); BILIRUBIN,TOTAL 0.5 mg/dL (0.2-1.0); CREATININE 1.3 mg/dL (0.6-1.3); POTASSIUM 4.2 mmol/L (3.5-5.1); TOTAL PROTEIN, SERUM 6.6 g/dL (6.4-8.2)
[2023-03-04 03:43] LABS: BACTERIA,URINE Rare /HPF (None Seen); RBC,URINE 0-2 /HPF (0-2); SQUAMOUS EPITHELIAL CELL,UR Few /HPF (None Seen); WBC,URINE 0-2 /HPF (0-3)
--- NOTE | 2023-03-04 03:45 | NUR ---
BLOOD GLUCOSE: 471; DR VIOLETTE GUNN AWARE
--- NOTE | 2023-03-04 05:01 | NUR ---
COVID RESULT REPORTED TO [facility]. AWAITING [facility], CALL FOR REPORT FROM ETA
--- NOTE | 2023-03-04 06:55 | NUR ---
BLOOD GLUCOSE: 471
--- NOTE | 2023-03-04 07:06 | NUR ---
PT GOT ACCEPTED AT [facility] UNDER CARE OF Wendy HINOJOSA GOING TO [id number]. # FOR REPORT: [phone]. TRANSPORTATION BY [facility] , ALS ETA: [phone]
--- NOTE | 2023-03-04 07:36 | NUR ---
TRIED TO GIVE REPORT , NO ANSWER
--- NOTE | 2023-03-04 07:54 | NUR ---
REPORT GIVEN TO MIGUEL ANGEL GILLETTE
[2023-03-04 08:39] VITALS: BP 110/55; TEMP 97.9; O2SAT 98
--- NOTE | 2023-03-04 09:15 | NUR ---
PT TRANSFERRED TO [facility] IN STABLE CONDITION
== END 2023-03-04 09:17 | disposition short-term general hospital (02) ==
LOC: ER 03-04 00:03
DX: E11.65 Type 2 diabetes mellitus with hyperglycemia (principal); E87.5 Hyperkalemia; F03.90 Unspecified dementia, unspecified severity, without behavioral disturbance, psychotic disturbance, mood disturbance, and anxiety; I10 Essential (primary) hypertension; E78.5 Hyperlipidemia, unspecified; K21.9 Gastro-esophageal reflux disease without esophagitis; F20.9 Schizophrenia, unspecified; Z86.16 Personal history of COVID-19; Z79.4 Long term (current) use of insulin; Z79.899 Other long term (current) drug therapy; Z20.822 Contact with and (suspected) exposure to COVID-19
CPT/HCPCS: 99291; 96374; 96361; 87426; 93005; 71045; 85025; 81001; 36415; 80053; 80048; 82962 ×3; J1815; J7030; C9803

== ENCOUNTER 2023-06-12 14:58 | Inpatient (IN) | payer MEDICARE, OTHER ==
[~2023-06-12] VITALS: Ht 175.3 cm; Wt 57.2 kg
[2023-06-12] MEDS ORDERED: IV NS 0.9% 1,000 ML BAG IV ONE ×2 (15:30→17:00)
[2023-06-12 15:58] LABS: BASOPHILS % (AUTO) 0.1 % (0.0-2.0); HEMATOCRIT 46 % (39-51); HEMOGLOBIN 14.2 g/dL (13.5-17.5); LYMPHOCYTES # (AUTO) 1.3 K/uL (0.8-4.8); LYMPHOCYTES % (AUTO) 6.1 % (20.0-44.0); MEAN CORPUSCULAR HEMOGLOBIN 32 PG (26.0-33.0); MEAN CORPUSCULAR HGB CONC 31 g/dl (31.0-36.0); MEAN CORPUSCULAR VOLUME 105 fL (80-96); MONOCYTES # (AUTO) 1.5 K/uL (0.1-1.30); MONOCYTES % (AUTO) 6.8 % (2.0-12.0); NEUTROPHILS # (AUTO) 19.2 K/uL (1.8-8.9); PLATELET COUNT (AUTO) 596 K/uL (150-450); RED BLOOD CELL COUNT(AUTO) 4.39 MIL/uL (4.5-6.0); RED CELL DISTRIBUTION WIDTH 15.3 % (11.5-15.0); WHITE BLOOD COUNT (AUTO) 22.1 K/uL (4.3-11.0)
[2023-06-12 16:13] LABS: ALANINE AMINOTRANSFERASE 38 U/L (12-78); ALBUMIN 3.9 g/dL (3.4-5.0); ALKALINE PHOSPHATASE 223 U/L (46-116); ASPARTATE AMINOTRANSFERASE 13 U/L (15-37); BILIRUBIN,DIRECT 0.1 mg/dL (0.0-0.2); BILIRUBIN,TOTAL 0.4 mg/dL (0.2-1.0); CALCIUM, SERUM 10.4 mg/dL (8.5-10.1); CARBON DIOXIDE 13 mmol/L (21-32); CHLORIDE 98 mmol/L (98-107); CREATININE 2.5 mg/dL (0.6-1.3); POTASSIUM 5.1 mmol/L (3.5-5.1); SODIUM SERUM 139 mmol/L (136-145); TOTAL PROTEIN, SERUM 8.4 g/dL (6.4-8.2); UREA NITROGEN, BLOOD 44 mg/dL (7-18)
[2023-06-12 16:16] LABS: GLUCOSE 868 mg/dL (74-106)
[2023-06-12] MEDS ORDERED: FOLI0.4T6 PO (16:19)
[2023-06-12] MEDS ORDERED: QUET25TA PO (16:19)
[2023-06-12] MEDS ORDERED: CLOP75TA15 PO (16:19)
[2023-06-12] MEDS ORDERED: MELA5TAB PO (16:19)
[2023-06-12] MEDS ORDERED: METO25TA20 PO (16:19)
[2023-06-12] MEDS ORDERED: MICO15CR4 TP (16:22)
[2023-06-12] MEDS ORDERED: VANCOMYCIN 1 GM in IV D5W 250 ML IV ONE (17:00)
[2023-06-12] MEDS ORDERED: INSULIN REGULAR, HUMAN 100 UNITS in IV NS 0.9% 100 ML IV PRN ×2 (17:00)
[2023-06-12] MEDS ORDERED: CEFEPIME 2 GM in IV D5W 50 ML IV ONE (17:00)
[2023-06-12 17:18] LABS: APPEARANCE,URINE CLEAR (CLEAR); BILIRUBIN,URINE 1+ (NEGATIVE); BLOOD, URINE TRACE-INTA Ery/uL (NEGATIVE); COLOR,URINE YELLOW (YELLOW); KETONES,URINE 2+ mg/dL (NEGATIVE); LEUKOCYTE ESTERASE ,URINE NEGATIVE (NEGATIVE); NITRITE, URINE NEGATIVE (NEGATIVE); PH,URINE 5.5 (5.0-8.0); PROTEIN,URINE NEGATIVE (NEGATIVE); UGLUCOSE 3+ mg/dL (NEGATIVE); UROBILINOGEN,URINE 0.2 EU/dL (0.2)
[2023-06-12] MEDS ORDERED: CEFEPIME 2 GM in IV D5W 100 ML IV ONE (17:30)
[2023-06-12 17:31] LABS: PHOSPHORUS 5.2 mg/dL (2.5-4.9)
[2023-06-12 17:40] LABS: LACTIC ACID 10.4 mmol/L (0.4-2.0)
[2023-06-12 17:48] LABS: RBC,URINE 0-2 /HPF (0-2); WBC,URINE 0-2 /HPF (0-3)
[2023-06-12 17:49] LABS: ADD URINE CULTURE NO; BACTERIA,URINE Few /HPF (None Seen); COARSE GRANULAR CASTS,URINE Few /LPF (None Seen); SQUAMOUS EPITHELIAL CELL,UR Few /HPF (None Seen)
[2023-06-12 18:40] LABS: LYMPHOCYTES % (MANUAL) 6 % (16-48); MONOCYTES % (MANUAL) 8 % (0-11.0); NEUTROPHILS % (MANUAL) 86 (42-76); PLATELET ESTIMATE ADEQUATE
[2023-06-12 18:41] LABS: ANISOCYTOSIS 1+
[2023-06-12 19:38] LABS: MAGNESIUM 2.8 mg/dL (1.8-2.4); PHOSPHORUS 3.8 mg/dL (2.5-4.9)
[2023-06-12] MEDS ORDERED: IV NS 0.9% 1,000 ML IV ONE (21:30)
[2023-06-12] MEDS ORDERED: ACETAMINOPHEN 325 MG TABLET PO PRN (21:30)
[2023-06-12] MEDS ORDERED: INSULIN REGULAR, HUMAN 100 UNIT in IV NS 0.9% 99 ML IV PRN ×2 (21:30)
[2023-06-12] MEDS ORDERED: ONDANSETRON HCL/PF 4 MG/2 ML VIAL IVP PRN (21:30)
[2023-06-12] MEDS ORDERED: Z GUARD REMEDY 4 OZ OINT TP PRN (21:30)
[2023-06-12 21:57] LABS: MAGNESIUM 2.5 mg/dL (1.8-2.4); PHOSPHORUS 2.3 mg/dL (2.5-4.9)
[2023-06-12 22:01] LABS: CARBON DIOXIDE 19 mmol/L (21-32); CHLORIDE 110 mmol/L (98-107); POTASSIUM 4.2 mmol/L (3.5-5.1); SODIUM SERUM 146 mmol/L (136-145)
[2023-06-12 22:02] LABS: CALCIUM, SERUM 9.4 mg/dL (8.5-10.1); UREA NITROGEN, BLOOD 36 mg/dL (7-18)
[2023-06-12 22:06] LABS: GLUCOSE 429 mg/dL (74-106)
[2023-06-12] MEDS: ENOXAPARIN SODIUM 30 MG/0.3 ML DISP.SYRIN SQ SCH (22:10)
[2023-06-12 22:15] VITALS: BP 118/62; TEMP 98; O2SAT 98
[2023-06-12] MEDS: BLOOD SUGAR DIAGNOSTIC 1 EACH STRIP IN SCH ×2 (22:15→23:05)
[2023-06-12 22:21] VITALS: BP 118/60; O2SAT 98
[2023-06-12 22:47] LABS: ABG BASE EXCESS -1.1 mmol/L; ABG OXYGEN SATURATION 96.5 % (92.0-98.5); ABG PCO2 36.8 mmHg (35.0-45.0); ABG PH 7.415 (7.350-7.450); ABG PO2 86.9 mmHg (75.0-100.0); ABG TOTAL HEMOGLOBIN 12.6 G/dL (13.5-18.0); AaDO2 18.8 mmHg; COHb 0.4 % (0.5-1.5); MetHb 0.1 % (0.0-1.5); SITE, ABG Right Brachial; VENT MODE, BG Room Air
[2023-06-12 23:00] VITALS: BP 132/69
[2023-06-13] VITALS (30 sets, daily range): BP systolic 103–144; BP diastolic 45–76; TEMP 98–98.6; O2SAT 96–100
[2023-06-13] MEDS: BLOOD SUGAR DIAGNOSTIC 1 EACH STRIP IN SCH ×10 (00:51→09:31)
[2023-06-13] MEDS: IV D5/0.45 NACL 1,000 ML IV SCH ×2 (00:53→10:30)
[2023-06-13 01:44] LABS: CALCIUM, SERUM 9.6 mg/dL (8.5-10.1); CARBON DIOXIDE 24 mmol/L (21-32); CHLORIDE 113 mmol/L (98-107); CREATININE 1.5 mg/dL (0.6-1.3); GLUCOSE 102 mg/dL (74-106); MAGNESIUM 2.5 mg/dL (1.8-2.4); PHOSPHORUS 2.5 mg/dL (2.5-4.9); POTASSIUM 3.7 mmol/L (3.5-5.1); SODIUM SERUM 149 mmol/L (136-145); UREA NITROGEN, BLOOD 33 mg/dL (7-18)
[2023-06-13] MEDS: POTASSIUM CL. PREMIX PERIPHER. 50 ML IV SCH ×4 (03:09→06:03)
[2023-06-13 04:00] LABS: CALCIUM, SERUM 9.2 mg/dL (8.5-10.1); CARBON DIOXIDE 27 mmol/L (21-32); CHLORIDE 113 mmol/L (98-107); CREATININE 1.5 mg/dL (0.6-1.3); GLUCOSE 155 mg/dL (74-106); MAGNESIUM 2.4 mg/dL (1.8-2.4); PHOSPHORUS 2.9 mg/dL (2.5-4.9); POTASSIUM 3.9 mmol/L (3.5-5.1); SODIUM SERUM 149 mmol/L (136-145); UREA NITROGEN, BLOOD 34 mg/dL (7-18)
[2023-06-13 06:32] LABS: BASOPHILS % (AUTO) 0.3 % (0.0-2.0); EOSINOPHILS % (AUTO) 0.2 % (0.0-6.0); HEMATOCRIT 33 % (39-51); LYMPHOCYTES # (AUTO) 2.1 K/uL (0.8-4.8); MEAN CORPUSCULAR HEMOGLOBIN 32 PG (26.0-33.0); MEAN CORPUSCULAR HGB CONC 34 g/dl (31.0-36.0); MEAN CORPUSCULAR VOLUME 96 fL (80-96); MONOCYTES # (AUTO) 1.1 K/uL (0.1-1.30); MONOCYTES % (AUTO) 6.9 % (2.0-12.0); NEUTROPHILS # (AUTO) 12.7 K/uL (1.8-8.9); NEUTROPHILS % (AUTO) 79.6 % (43.0-81.0); PLATELET COUNT (AUTO) 431 K/uL (150-450); WHITE BLOOD COUNT (AUTO) 15.9 K/uL (4.3-11.0)
[2023-06-13 06:47] LABS: ALANINE AMINOTRANSFERASE 29 U/L (12-78); ALBUMIN 2.7 g/dL (3.4-5.0); ALKALINE PHOSPHATASE 130 U/L (46-116); ASPARTATE AMINOTRANSFERASE 15 U/L (15-37); BILIRUBIN,TOTAL 0.3 mg/dL (0.2-1.0); CALCIUM, SERUM 8.8 mg/dL (8.5-10.1); CARBON DIOXIDE 25 mmol/L (21-32); CHLORIDE 115 mmol/L (98-107); CREATININE 1.2 mg/dL (0.6-1.3); GLUCOSE 257 mg/dL (74-106); MAGNESIUM 2.3 mg/dL (1.8-2.4); PHOSPHORUS 2.6 mg/dL (2.5-4.9); POTASSIUM 4.4 mmol/L (3.5-5.1); SODIUM SERUM 149 mmol/L (136-145); UREA NITROGEN, BLOOD 32 mg/dL (7-18)
[2023-06-13 06:58] LABS: CHOLESTEROL 170 mg/dL (<200); HDL CHOLESTEROL 58 mg/dL (40-60); LDL 97 mg/dL (0-99); THYROID STIMULATING HORMONE 1.356 uIU/mL (0.358-3.74); TRIGLYCERIDES 128 mg/dL (30-150)
[2023-06-13] MEDS: PANTOPRAZOLE 40 MG VIAL IV SCH (09:33)
[2023-06-13] MEDS: CLOTRIMAZOLE 1% 15 GM TUBE TP SCH ×2 (09:34→17:06)
[2023-06-13] MEDS: VANCOMYCIN HCL 0.75 GM in IV D5W 250 ML IV SCH ×2 (09:35→22:56)
[2023-06-13 10:07] LABS: CALCIUM, SERUM 8.9 mg/dL (8.5-10.1); CARBON DIOXIDE 23 mmol/L (21-32); CHLORIDE 114 mmol/L (98-107); CREATININE 1.5 mg/dL (0.6-1.3); GLUCOSE 156 mg/dL (74-106); MAGNESIUM 2.3 mg/dL (1.8-2.4); PHOSPHORUS 2.4 mg/dL (2.5-4.9); POTASSIUM 3.9 mmol/L (3.5-5.1); SODIUM SERUM 150 mmol/L (136-145); UREA NITROGEN, BLOOD 32 mg/dL (7-18)
[2023-06-13] MEDS ORDERED: ACETAMINOPHEN 325 MG TABLET PO PRN (10:30)
[2023-06-13] MEDS ORDERED: MAGNESIUM HYDROXIDE 30 ML UDC PO PRN (10:30)
[2023-06-13] MEDS ORDERED: NA PHOS,M-B/NA PHOS,DI-BA 1 EA ENEMA RC PRN (10:30)
[2023-06-13] MEDS ORDERED: ACETAMINOPHEN ES 500 MG TABLET PO PRN (10:30)
[2023-06-13] MEDS ORDERED: DEXTROSE 50%-WATER 50 ML DISP.SYRIN IV PRN (11:00)
[2023-06-13] MEDS: LACTULOSE 10 G/15 ML UDC (PYXIS) PO SCH ×4 (11:00→22:56)
[2023-06-13 12:06] LABS: CALCIUM, SERUM 8.9 mg/dL (8.5-10.1); CARBON DIOXIDE 26 mmol/L (21-32); CHLORIDE 112 mmol/L (98-107); CREATININE 1.4 mg/dL (0.6-1.3); GLUCOSE 178 mg/dL (74-106); POTASSIUM 3.9 mmol/L (3.5-5.1); SODIUM SERUM 148 mmol/L (136-145); UREA NITROGEN, BLOOD 30 mg/dL (7-18)
[2023-06-13 12:10] LABS: MAGNESIUM 2.4 mg/dL (1.8-2.4)
[2023-06-13] MEDS: BLOOD SUGAR DIAGNOSTIC 1 EACH STRIP VI SCH ×3 (12:22→22:58)
[2023-06-13] MEDS: INSULIN LISPRO/ASPART 100 UNIT/ML CARTRIDGE SQ SCH ×2 (12:29→17:30)
[2023-06-13] MEDS: *INSULIN REGULAR(HUMULIN R)HUM 100 UNIT/ML VIAL SQ PRN ×2 (12:30→23:01)
[2023-06-13] MEDS ORDERED: K PHOS NEUTRAL 250 MG TABLET PO ONE (16:00)
[2023-06-13] MEDS: QUETIAPINE FUMARATE 25 MG TABLET PO SCH ×2 (17:00→17:05)
[2023-06-13] MEDS: SORBITOL SOLUTION 70% 30 ML SOLUTION PO SCH ×2 (17:00→17:05)
[2023-06-13] MEDS: METOPROLOL TARTRATE 25 MG TABLET PO SCH ×2 (17:00→17:02)
[2023-06-13] MEDS: CEFEPIME 1 GM in IV D5W 50 ML IV SCH (17:03)
[2023-06-13] MEDS: ATORVASTATIN 40 MG TABLET PO SCH (22:56)
[2023-06-13] MEDS: ENOXAPARIN SODIUM 30 MG/0.3 ML DISP.SYRIN SQ SCH (22:58)
[2023-06-13] MEDS: INSULIN GLARGINE, 100 UNIT/ML CARTRIDGE SQ SCH (23:02)
[2023-06-14] MEDS: *INSULIN REGULAR(HUMULIN R)HUM 100 UNIT/ML VIAL SQ PRN ×2 (01:03→22:12)
[2023-06-14] MEDS: IV 1/2NS 1000 ML 1,000 ML IV PRN ×2 (01:14→11:09)
[2023-06-14] MEDS: LACTULOSE 10 G/15 ML UDC (PYXIS) PO SCH (04:59)
[2023-06-14] MEDS: BLOOD SUGAR DIAGNOSTIC 1 EACH STRIP VI SCH ×4 (06:36→21:32)
[2023-06-14] MEDS: INSULIN REGULAR, HUMAN 100 UNIT/ML 3 ML VIAL SQ PRN ×3 (06:37→17:43)
[2023-06-14] MEDS: INSULIN LISPRO/ASPART 100 UNIT/ML CARTRIDGE SQ SCH ×3 (07:30→17:38)
[2023-06-14 08:38] VITALS: BP 108/63; TEMP 97.7; O2SAT 95
[2023-06-14] MEDS: PANTOPRAZOLE 40 MG VIAL IV SCH (09:37)
[2023-06-14 09:43] LABS: CHLORIDE 105 mmol/L (98-107); POTASSIUM 3.7 mmol/L (3.5-5.1); SODIUM SERUM 139 mmol/L (136-145)
[2023-06-14 09:44] LABS: BASOPHILS % (AUTO) 0.5 % (0.0-2.0); EOSINOPHILS # (AUTO) 0.2 K/uL (0.0-0.7); EOSINOPHILS % (AUTO) 2.3 % (0.0-6.0); HEMATOCRIT 39 % (39-51); HEMOGLOBIN 12.9 g/dL (13.5-17.5); LYMPHOCYTES # (AUTO) 2.2 K/uL (0.8-4.8); LYMPHOCYTES % (AUTO) 22.7 % (20.0-44.0); MEAN CORPUSCULAR HEMOGLOBIN 32 PG (26.0-33.0); MEAN CORPUSCULAR HGB CONC 33 g/dl (31.0-36.0); MEAN CORPUSCULAR VOLUME 98 fL (80-96); MONOCYTES # (AUTO) 0.5 K/uL (0.1-1.30); MONOCYTES % (AUTO) 4.9 % (2.0-12.0); NEUTROPHILS # (AUTO) 6.7 K/uL (1.8-8.9); NEUTROPHILS % (AUTO) 69.6 % (43.0-81.0); PLATELET COUNT (AUTO) 352 K/uL (150-450); RED BLOOD CELL COUNT(AUTO) 3.97 MIL/uL (4.5-6.0); RED CELL DISTRIBUTION WIDTH 14.4 % (11.5-15.0); WHITE BLOOD COUNT (AUTO) 9.6 K/uL (4.3-11.0)
[2023-06-14] MEDS: METOPROLOL TARTRATE 25 MG TABLET PO SCH ×2 (09:53→17:31)
[2023-06-14] MEDS: ASPIRIN 81 MG TAB.CHEW PO SCH (09:54)
[2023-06-14] MEDS: ASCORBIC ACID 500 MG TABLET PO SCH (09:55)
[2023-06-14] MEDS: ACETAMINOPHEN 325 MG TABLET PO SCH (09:55)
[2023-06-14] MEDS: SORBITOL SOLUTION 70% 30 ML SOLUTION PO SCH ×2 (09:55→17:31)
[2023-06-14] MEDS: CLOPIDOGREL BISULFATE 75 MG TABLET PO SCH (09:55)
[2023-06-14] MEDS: QUETIAPINE FUMARATE 25 MG TABLET PO SCH ×2 (09:55→17:31)
[2023-06-14] MEDS: CLOTRIMAZOLE 1% 15 GM TUBE TP SCH ×2 (09:56→17:32)
[2023-06-14] MEDS: BACITRACIN ZINC OINT (15 GM) 15 GM TUBE TP SCH ×2 (09:57→17:32)
[2023-06-14 10:06] LABS: CALCIUM, SERUM 9.2 mg/dL (8.5-10.1); CARBON DIOXIDE 25 mmol/L (21-32); GLUCOSE 99 mg/dL (74-106); MAGNESIUM 2.3 mg/dL (1.8-2.4); PHOSPHORUS 2.4 mg/dL (2.5-4.9); UREA NITROGEN, BLOOD 23 mg/dL (7-18)
[2023-06-14] MEDS: VANCOMYCIN HCL 0.75 GM in IV D5W 250 ML IV SCH ×2 (11:02→21:30)
[2023-06-14] MEDS ORDERED: K PHOS NEUTRAL 250 MG TABLET PO ONE (15:30)
[2023-06-14 16:14] VITALS: BP 110/60; TEMP 97.5; O2SAT 95
[2023-06-14] MEDS: PROSOURCE / PROSTAT (PYXIS) 30 ML UDC PO SCH (17:31)
[2023-06-14] MEDS: CEFEPIME 1 GM in IV D5W 50 ML IV SCH (17:52)
[2023-06-14 20:00] VITALS: BP 116/56; TEMP 97.6; O2SAT 94
[2023-06-14] MEDS: ENOXAPARIN SODIUM 30 MG/0.3 ML DISP.SYRIN SQ SCH (21:30)
[2023-06-14] MEDS: ATORVASTATIN 40 MG TABLET PO SCH (21:30)
[2023-06-14] MEDS: INSULIN GLARGINE, 100 UNIT/ML CARTRIDGE SQ SCH (22:09)
[2023-06-15 06:48] LABS: BASOPHILS % (AUTO) 0.3 % (0.0-2.0); EOSINOPHILS # (AUTO) 0.2 K/uL (0.0-0.7); EOSINOPHILS % (AUTO) 2.3 % (0.0-6.0); HEMATOCRIT 35 % (39-51); HEMOGLOBIN 11.9 g/dL (13.5-17.5); LYMPHOCYTES # (AUTO) 2.9 K/uL (0.8-4.8); LYMPHOCYTES % (AUTO) 34.7 % (20.0-44.0); MEAN CORPUSCULAR HEMOGLOBIN 33 PG (26.0-33.0); MEAN CORPUSCULAR HGB CONC 34 g/dl (31.0-36.0); MEAN CORPUSCULAR VOLUME 98 fL (80-96); MONOCYTES # (AUTO) 0.4 K/uL (0.1-1.30); MONOCYTES % (AUTO) 4.5 % (2.0-12.0); NEUTROPHILS # (AUTO) 4.9 K/uL (1.8-8.9); NEUTROPHILS % (AUTO) 58.2 % (43.0-81.0); PLATELET COUNT (AUTO) 314 K/uL (150-450); RED BLOOD CELL COUNT(AUTO) 3.59 MIL/uL (4.5-6.0); RED CELL DISTRIBUTION WIDTH 14.2 % (11.5-15.0); WHITE BLOOD COUNT (AUTO) 8.4 K/uL (4.3-11.0)
[2023-06-15] MEDS: INSULIN REGULAR, HUMAN 100 UNIT/ML 3 ML VIAL SQ PRN (07:27)
[2023-06-15] MEDS: INSULIN LISPRO/ASPART 100 UNIT/ML CARTRIDGE SQ SCH ×2 (07:28→12:55)
[2023-06-15] MEDS: BLOOD SUGAR DIAGNOSTIC 1 EACH STRIP VI SCH ×2 (07:29→12:47)
[2023-06-15 07:30] VITALS: BP 135/84; TEMP 98.2; O2SAT 99
[2023-06-15 07:35] LABS: ALANINE AMINOTRANSFERASE 39 U/L (12-78); ALBUMIN 2.3 g/dL (3.4-5.0); ALKALINE PHOSPHATASE 139 U/L (46-116); ASPARTATE AMINOTRANSFERASE 68 U/L (15-37); BILIRUBIN,TOTAL 0.3 mg/dL (0.2-1.0); CALCIUM, SERUM 8.7 mg/dL (8.5-10.1); CARBON DIOXIDE 27 mmol/L (21-32); CHLORIDE 109 mmol/L (98-107); CREATININE 0.8 mg/dL (0.6-1.3); MAGNESIUM 2.1 mg/dL (1.8-2.4); PHOSPHORUS 2.3 mg/dL (2.5-4.9); POTASSIUM 3.5 mmol/L (3.5-5.1); SODIUM SERUM 144 mmol/L (136-145); TOTAL PROTEIN, SERUM 5.6 g/dL (6.4-8.2); UREA NITROGEN, BLOOD 20 mg/dL (7-18)
[2023-06-15 07:46] LABS: GLUCOSE 35 mg/dL (74-106)
[2023-06-15] MEDS: PROSOURCE / PROSTAT (PYXIS) 30 ML UDC PO SCH ×2 (08:56→12:47)
[2023-06-15] MEDS ORDERED: PANTOPRAZOLE 40 MG TABLET.DR PO SCH (09:00)
[2023-06-15] MEDS: ASPIRIN 81 MG TAB.CHEW PO SCH (09:35)
[2023-06-15] MEDS: SORBITOL SOLUTION 70% 30 ML SOLUTION PO SCH (09:35)
[2023-06-15] MEDS: ACETAMINOPHEN 325 MG TABLET PO SCH (09:35)
[2023-06-15] MEDS: CLOPIDOGREL BISULFATE 75 MG TABLET PO SCH (09:36)
[2023-06-15] MEDS: ASCORBIC ACID 500 MG TABLET PO SCH (09:36)
[2023-06-15] MEDS: QUETIAPINE FUMARATE 25 MG TABLET PO SCH (09:36)
[2023-06-15 09:37] VITALS: BP 135/84
[2023-06-15] MEDS: METOPROLOL TARTRATE 25 MG TABLET PO SCH (09:37)
[2023-06-15] MEDS: BACITRACIN ZINC OINT (15 GM) 15 GM TUBE TP SCH (09:38)
[2023-06-15] MEDS: CLOTRIMAZOLE 1% 15 GM TUBE TP SCH (09:38)
[2023-06-15] MEDS: VANCOMYCIN HCL 0.75 GM in IV D5W 250 ML IV SCH (09:44)
[2023-06-15] MEDS ORDERED: AMOX-427 PO (11:49)
[2023-06-15] MEDS ORDERED: SORB30SO2 PO (11:49)
[2023-06-15] MEDS ORDERED: K PHOS NEUTRAL 250 MG TABLET PO ONE (16:00)
== END 2023-06-15 17:00 | DRG 637 ==
LOC: ER 15:09 → ICU 20:37 → MED 06-13 17:32
PROVIDERS: ADMIT Nurse Practitioner Acute Care; ATTEND Nurse Practitioner Acute Care
DX: E10.10 Type 1 diabetes mellitus with ketoacidosis without coma (principal); G93.41 Metabolic encephalopathy; I21.A1 Myocardial infarction type 2; N17.9 Acute kidney failure, unspecified; F03.918 Unspecified dementia, unspecified severity, with other behavioral disturbance; E87.0 Hyperosmolality and hypernatremia; G40.909 Epilepsy, unspecified, not intractable, without status epilepticus; Z20.822 Contact with and (suspected) exposure to COVID-19; E10.51 Type 1 diabetes mellitus with diabetic peripheral angiopathy without gangrene; Z86.73 Personal history of transient ischemic attack (TIA), and cerebral infarction without residual deficits; I10 Essential (primary) hypertension; I25.10 Atherosclerotic heart disease of native coronary artery without angina pectoris; E78.5 Hyperlipidemia, unspecified; I70.0 Atherosclerosis of aorta; K21.9 Gastro-esophageal reflux disease without esophagitis; K29.70 Gastritis, unspecified, without bleeding; M81.0 Age-related osteoporosis without current pathological fracture; F20.9 Schizophrenia, unspecified; Z95.1 Presence of aortocoronary bypass graft; Z95.5 Presence of coronary angioplasty implant and graft; Z79.02 Long term (current) use of antithrombotics/antiplatelets; Z79.4 Long term (current) use of insulin; Z79.82 Long term (current) use of aspirin; Z79.899 Other long term (current) drug therapy; D72.829 Elevated white blood cell count, unspecified; D75.839 Thrombocytosis, unspecified; E10.42 Type 1 diabetes mellitus with diabetic polyneuropathy; N40.0 Benign prostatic hyperplasia without lower urinary tract symptoms; E04.1 Nontoxic single thyroid nodule; I25.2 Old myocardial infarction; F43.9 Reaction to severe stress, unspecified
CPT/HCPCS: 36415; 36600; 70450-TC; 71045-TC; 71250-TC; 73030-TC; 80048-TC; 80053-TC; 80061-TC; 80076-TC; 80202-TC; 81001; 82010-TC; 82962-TC; 83605-TC; 83735-TC; 84100-TC; 84443-TC; 84484-TC; 85025-TC; 87040-TC; 87081-TC; 87086-TC; 93307-TC; A4223; C9113; G0378; J0692; J1650; J1815; J3370; J3480; J3490; J7030; J7040; J7060

== ENCOUNTER 2023-06-20 13:16 | Emergency (ER) | payer MEDICARE, OTHER ==
[~2023-06-20] VITALS: Ht 182.9 cm; Wt 59.9 kg
[~2023-06-20 13:16] MED LIST changes: +AMOX-427 PO; +CLOP75TA15 PO; +FOLI0.4T6 PO; -MAG30ORA PO; +MELA5TAB PO; +METO25TA20 PO; +MICO15CR4 TP; +QUET25TA PO; +SORB30SO2 PO; -ZINC50TA39 PO
[2023-06-20] MEDS ORDERED: IV NS 0.9% 500 ML BAG IV ONE (15:00)
[2023-06-20 15:07] LABS: BASOPHILS % (AUTO) 0.5 % (0.0-2.0); EOSINOPHILS # (AUTO) 0.2 K/uL (0.0-0.7); EOSINOPHILS % (AUTO) 2.4 % (0.0-6.0); HEMATOCRIT 37 % (39-51); HEMOGLOBIN 12.5 g/dL (13.5-17.5); LYMPHOCYTES # (AUTO) 2.9 K/uL (0.8-4.8); LYMPHOCYTES % (AUTO) 29.3 % (20.0-44.0); MEAN CORPUSCULAR HEMOGLOBIN 33 PG (26.0-33.0); MEAN CORPUSCULAR HGB CONC 34 g/dl (31.0-36.0); MEAN CORPUSCULAR VOLUME 97 fL (80-96); MONOCYTES # (AUTO) 0.8 K/uL (0.1-1.30); MONOCYTES % (AUTO) 8.3 % (2.0-12.0); NEUTROPHILS # (AUTO) 5.9 K/uL (1.8-8.9); NEUTROPHILS % (AUTO) 59.5 % (43.0-81.0); PLATELET COUNT (AUTO) 412 K/uL (150-450); RED CELL DISTRIBUTION WIDTH 14.1 % (11.5-15.0); WHITE BLOOD COUNT (AUTO) 9.9 K/uL (4.3-11.0)
[2023-06-20 15:17] LABS: CARBON DIOXIDE 29 mmol/L (21-32); CHLORIDE 99 mmol/L (98-107); CREATININE 1.3 mg/dL (0.6-1.3); GLUCOSE 200 mg/dL (74-106); POTASSIUM 4.2 mmol/L (3.5-5.1); SODIUM SERUM 136 mmol/L (136-145); UREA NITROGEN, BLOOD 30 mg/dL (7-18)
[2023-06-20 15:24] LABS: ALANINE AMINOTRANSFERASE 26 U/L (12-78); ALBUMIN 2.8 g/dL (3.4-5.0); ALKALINE PHOSPHATASE 163 U/L (46-116); ASPARTATE AMINOTRANSFERASE 17 U/L (15-37); BILIRUBIN,DIRECT 0.1 mg/dL (0.0-0.2); BILIRUBIN,TOTAL 0.2 mg/dL (0.2-1.0); TOTAL PROTEIN, SERUM 6.5 g/dL (6.4-8.2)
[2023-06-20 19:22] VITALS: BP 145/66; TEMP 98.2; O2SAT 97
== END 2023-06-20 19:23 ==
LOC: ER 13:26
DX: R73.9 Hyperglycemia, unspecified (principal); I10 Essential (primary) hypertension; K21.9 Gastro-esophageal reflux disease without esophagitis; Z98.890 Other specified postprocedural states; Z79.899 Other long term (current) drug therapy; Z79.82 Long term (current) use of aspirin; Z79.4 Long term (current) use of insulin
CPT/HCPCS: 99285; 71045; 93005; 85025; 80048; 80076; 36415; 84484; 82962 ×3; J7040

== ENCOUNTER 2023-08-27 14:21 | Inpatient (IN) | payer MEDICARE, OTHER ==
[~2023-08-27] VITALS: Ht 188 cm; Wt 68.0 kg
[2023-08-27] MEDS ORDERED: VANCOMYCIN 1 GM /D5W 250 ML PB IV ONE (14:52)
[2023-08-27] MEDS ORDERED: GEL100GE TP (15:04)
[2023-08-27] MEDS ORDERED: SORB30SO2 PO (15:04)
[2023-08-27] MEDS ORDERED: CAMP85GE TP (15:04)
[2023-08-27] MEDS ORDERED: MICO45CR11 TP (15:04)
[2023-08-27] MEDS ORDERED: DIPH28.34 TP (15:04)
[2023-08-27] MEDS: VANCOMYCIN 1 GM in IV D5W 250 ML IV ONE (15:06)
[2023-08-27 15:10] LABS: BASOPHILS # (AUTO) 0.1 K/uL (0.0-0.2); EOSINOPHILS # (AUTO) 0.5 K/uL (0.0-0.7); EOSINOPHILS % (AUTO) 5.4 % (0.0-6.0); HEMATOCRIT 40 % (39-51); HEMOGLOBIN 13.2 g/dL (13.5-17.5); LYMPHOCYTES # (AUTO) 1.8 K/uL (0.8-4.8); LYMPHOCYTES % (AUTO) 18.5 % (20.0-44.0); MEAN CORPUSCULAR HEMOGLOBIN 33 PG (26.0-33.0); MEAN CORPUSCULAR HGB CONC 33 g/dl (31.0-36.0); MEAN CORPUSCULAR VOLUME 98 fL (80-96); MONOCYTES # (AUTO) 0.5 K/uL (0.1-1.30); MONOCYTES % (AUTO) 4.7 % (2.0-12.0); NEUTROPHILS % (AUTO) 70.4 % (43.0-81.0); PLATELET COUNT (AUTO) 406 K/uL (150-450); RED BLOOD CELL COUNT(AUTO) 4.08 MIL/uL (4.5-6.0); RED CELL DISTRIBUTION WIDTH 13.9 % (11.5-15.0); WHITE BLOOD COUNT (AUTO) 9.9 K/uL (4.3-11.0)
[2023-08-27 15:37] LABS: CALCIUM, SERUM 8.8 mg/dL (8.5-10.1); CARBON DIOXIDE 24 mmol/L (21-32); CHLORIDE 94 mmol/L (98-107); CREATININE 1.4 mg/dL (0.6-1.3); SODIUM SERUM 129 mmol/L (136-145); UREA NITROGEN, BLOOD 28 mg/dL (7-18)
[2023-08-27 15:44] LABS: ALANINE AMINOTRANSFERASE 16 U/L (12-78); ALBUMIN 3.1 g/dL (3.4-5.0); ALKALINE PHOSPHATASE 158 U/L (46-116); ASPARTATE AMINOTRANSFERASE 12 U/L (15-37); BILIRUBIN,DIRECT 0.1 mg/dL (0.0-0.2); BILIRUBIN,TOTAL 0.2 mg/dL (0.2-1.0); GLUCOSE 632 mg/dL (74-106); TOTAL PROTEIN, SERUM 7.4 g/dL (6.4-8.2)
[2023-08-27] MEDS ORDERED: ACETAMINOPHEN 325 MG TABLET PO PRN (16:00)
[2023-08-27] MEDS ORDERED: Z GUARD REMEDY 4 OZ OINT TP PRN (16:00)
[2023-08-27] MEDS ORDERED: MAG HYDROX/AL HYDROX/SIMETH 30 ML UDC PO PRN (16:00)
[2023-08-27] MEDS ORDERED: ONDANSETRON HCL/PF 4 MG/2 ML VIAL IVP PRN (16:00)
[2023-08-27] MEDS ORDERED: DEXTROSE 50%-WATER 50 ML DISP.SYRIN IV PRN (16:00)
[2023-08-27] MEDS ORDERED: MAGNESIUM HYDROXIDE 30 ML UDC PO PRN (16:00)
[2023-08-27] MEDS ORDERED: INSULIN REGULAR, HUMAN 100 UNIT/ML 10 ML VIAL ONE (16:11)
[2023-08-27] MEDS: INSULIN REGULAR, HUMAN 100 UNIT/ML 10 ML VIAL SQ ONE (16:13)
[2023-08-27] MEDS: IV NS 0.9% 1,000 ML BAG IV ONE (16:13)
[2023-08-27] MEDS: BLOOD SUGAR DIAGNOSTIC 1 EACH STRIP VI SCH (17:30)
[2023-08-27] MEDS: INSULIN ASPART/LISPRO 100 UNIT/ML CARTRIDGE SQ SCH (19:03)
[2023-08-27 20:00] VITALS: BP 151/78; TEMP 97.8; O2SAT 99
[2023-08-27 20:11] VITALS: BP 107/68; TEMP 98
[2023-08-27] MEDS: *INSULIN REGULAR(HUMULIN R)HUM 100 UNIT/ML VIAL SQ PRN (22:26)
[2023-08-28 07:25] LABS: BASOPHILS % (AUTO) 0.5 % (0.0-2.0); EOSINOPHILS # (AUTO) 1.1 K/uL (0.0-0.7); EOSINOPHILS % (AUTO) 10.9 % (0.0-6.0); HEMATOCRIT 39 % (39-51); LYMPHOCYTES # (AUTO) 2.4 K/uL (0.8-4.8); LYMPHOCYTES % (AUTO) 23.5 % (20.0-44.0); MEAN CORPUSCULAR HEMOGLOBIN 33 PG (26.0-33.0); MEAN CORPUSCULAR HGB CONC 33 g/dl (31.0-36.0); MEAN CORPUSCULAR VOLUME 100 fL (80-96); MONOCYTES # (AUTO) 0.6 K/uL (0.1-1.30); MONOCYTES % (AUTO) 6.3 % (2.0-12.0); NEUTROPHILS # (AUTO) 5.9 K/uL (1.8-8.9); NEUTROPHILS % (AUTO) 58.8 % (43.0-81.0); PLATELET COUNT (AUTO) 343 K/uL (150-450); RED BLOOD CELL COUNT(AUTO) 3.94 MIL/uL (4.5-6.0); RED CELL DISTRIBUTION WIDTH 13.9 % (11.5-15.0); WHITE BLOOD COUNT (AUTO) 10.1 K/uL (4.3-11.0)
[2023-08-28 07:30] VITALS: BP 134/64; TEMP 98.4; O2SAT 100
[2023-08-28] MEDS: INSULIN REGULAR, HUMAN 100 UNIT/ML 3 ML VIAL SQ PRN ×2 (08:18→11:49)
[2023-08-28 08:48] LABS: CALCIUM, SERUM 7.7 mg/dL (8.5-10.1); CREATININE 0.9 mg/dL (0.6-1.3); MAGNESIUM 2.3 mg/dL (1.8-2.4); PHOSPHORUS 4.2 mg/dL (2.5-4.9)
[2023-08-28] MEDS: INSULIN GLARGINE, 100 UNIT/ML CARTRIDGE SQ SCH (09:06)
[2023-08-28] MEDS: BLOOD SUGAR DIAGNOSTIC 1 EACH STRIP IN SCH (11:26)
[2023-08-28] MEDS ORDERED: VANCOMYCIN 1 GM in IV D5W 250 ML IV SCH (15:00)
[2023-08-28] MEDS: VANCOMYCIN 0.75 GM in IV D5W 250 ML IV SCH (15:02)
[2023-08-28 15:25] LABS: CALCIUM, SERUM 8.7 mg/dL (8.5-10.1); CREATININE 0.9 mg/dL (0.6-1.3)
[2023-08-28 16:04] VITALS: BP 129/67; TEMP 98.6; O2SAT 96
[2023-08-28] MEDS: CLOTRIMAZOLE/BETAMETASONE DIPROPIONATE 15 GM TUBE TP SCH (17:00)
[2023-08-28 20:00] VITALS: BP 102/68; TEMP 98.1; O2SAT 96
[2023-08-29] MEDS: IV NS 0.9% 1,000 ML IV PRN (04:36)
[2023-08-29 08:00] VITALS: BP 135/69; TEMP 97.8; O2SAT 97
[2023-08-29 14:59] LABS: CALCIUM, SERUM 8.6 mg/dL (8.5-10.1); CARBON DIOXIDE 23 mmol/L (21-32); CHLORIDE 100 mmol/L (98-107); CREATININE 0.8 mg/dL (0.6-1.3); GLUCOSE 199 mg/dL (74-106); PHOSPHORUS 3.5 mg/dL (2.5-4.9); POTASSIUM 3.9 mmol/L (3.5-5.1); SODIUM SERUM 134 mmol/L (136-145); UREA NITROGEN, BLOOD 20 mg/dL (7-18)
[2023-08-29 15:12] LABS: THYROID STIMULATING HORMONE 2.675 uIU/mL (0.358-3.74); URIC ACID 4.3 mg/dL (2.6-7.2)
[2023-08-29 15:54] VITALS: BP 115/68; TEMP 98.4; O2SAT 98
[2023-08-29 20:00] VITALS: BP 132/64; TEMP 98.8; O2SAT 98
[2023-08-30 08:41] VITALS: BP 144/74; TEMP 98.1; O2SAT 98
[2023-08-30] MEDS: MUPIROCIN OINT 2% 22 GM TUBE TP SCH (10:23)
[2023-08-30 16:00] VITALS: BP 140/80; TEMP 97.3; O2SAT 99
[2023-08-30] MEDS: GLUCERNA SHAKE 237 ML CAN PO SCH (16:00)
[2023-08-30 20:00] VITALS: BP 129/72; TEMP 98.4; O2SAT 98
[2023-08-30] MEDS: DEXTROSE 50%-WATER 50 ML DISP.SYRIN IV PRN (23:41)
[2023-08-31 08:00] VITALS: BP 146/77; TEMP 98.2; O2SAT 98
[2023-08-31] MEDS ORDERED: SULF1TAB48 PO (10:20)
== END 2023-08-31 16:08 | DRG 602 ==
LOC: ER 14:24 → TELE 16:45 → MED 20:22
PROVIDERS: ADMIT Internal Medicine; ATTEND Internal Medicine
DX: L03.115 Cellulitis of right lower limb (principal); E11.00 Type 2 diabetes mellitus with hyperosmolarity without nonketotic hyperglycemic-hyperosmolar coma (NKHHC); E43 Unspecified severe protein-calorie malnutrition; G93.41 Metabolic encephalopathy; N17.9 Acute kidney failure, unspecified; E87.1 Hypo-osmolality and hyponatremia; E78.5 Hyperlipidemia, unspecified; F03.90 Unspecified dementia, unspecified severity, without behavioral disturbance, psychotic disturbance, mood disturbance, and anxiety; F20.9 Schizophrenia, unspecified; Z86.73 Personal history of transient ischemic attack (TIA), and cerebral infarction without residual deficits; I25.10 Atherosclerotic heart disease of native coronary artery without angina pectoris; E11.42 Type 2 diabetes mellitus with diabetic polyneuropathy; E11.65 Type 2 diabetes mellitus with hyperglycemia; I25.2 Old myocardial infarction; M81.0 Age-related osteoporosis without current pathological fracture; M89.8X9 Other specified disorders of bone, unspecified site; Z79.4 Long term (current) use of insulin; Z86.16 Personal history of COVID-19; Z95.1 Presence of aortocoronary bypass graft; Z98.61 Coronary angioplasty status; G40.909 Epilepsy, unspecified, not intractable, without status epilepticus; E88.09 Other disorders of plasma-protein metabolism, not elsewhere classified; E86.1 Hypovolemia; E86.0 Dehydration; D64.9 Anemia, unspecified; K21.9 Gastro-esophageal reflux disease without esophagitis; K29.70 Gastritis, unspecified, without bleeding; Z79.02 Long term (current) use of antithrombotics/antiplatelets; Z79.82 Long term (current) use of aspirin; Z79.899 Other long term (current) drug therapy; E11.22 Type 2 diabetes mellitus with diabetic chronic kidney disease; I12.9 Hypertensive chronic kidney disease with stage 1 through stage 4 chronic kidney disease, or unspecified chronic kidney disease; N18.9 Chronic kidney disease, unspecified; R21 Rash and other nonspecific skin eruption; E11.51 Type 2 diabetes mellitus with diabetic peripheral angiopathy without gangrene; E86.9 Volume depletion, unspecified
CPT/HCPCS: 36415; 71045-TC; 73630-TC; 80048-TC; 80053-TC; 80076-TC; 80202-TC; 82962-TC; 83605-TC; 83735-TC; 83880; 84100-TC; 84443-TC; 84484-TC; 84550-TC; 85025-TC; 85652-TC; 86140-TC; 87040-TC; A4223; G0378; J1815; J3370; J7030; J7060

== ENCOUNTER 2023-11-09 01:26 | Inpatient (IN) | payer MEDICARE, OTHER ==
[2023-11-09] VITALS (26 sets, daily range): BP systolic 112–153; BP diastolic 51–104; TEMP 97.7–99.3; O2SAT 91–100
[~2023-11-09] VITALS: Ht 175.3 cm; Wt 68.0 kg
[~2023-11-09 01:26] MED LIST changes: -AMOX-427 PO; +CAMP85GE TP; +DIPH28.34 TP; +GEL100GE TP; -MICO15CR4 TP; +MICO45CR11 TP; -MULT-447 PO; +SULF1TAB48 PO
[2023-11-09] MEDS: IV NS 0.9% 1,000 ML IV ONE ×2 (02:10→03:55)
[2023-11-09 02:18] LABS: BASOPHILS % (AUTO) 0.4 % (0.0-2.0); EOSINOPHILS # (AUTO) 0.1 K/uL (0.0-0.7); EOSINOPHILS % (AUTO) 1.2 % (0.0-6.0); HEMATOCRIT 47 % (39-51); HEMOGLOBIN 15.1 g/dL (13.5-17.5); LYMPHOCYTES # (AUTO) 2.1 K/uL (0.8-4.8); LYMPHOCYTES % (AUTO) 19.9 % (20.0-44.0); MEAN CORPUSCULAR HEMOGLOBIN 32 PG (26.0-33.0); MEAN CORPUSCULAR HGB CONC 32 g/dl (31.0-36.0); MEAN CORPUSCULAR VOLUME 101 fL (80-96); MONOCYTES # (AUTO) 0.7 K/uL (0.1-1.30); MONOCYTES % (AUTO) 6.2 % (2.0-12.0); NEUTROPHILS # (AUTO) 7.7 K/uL (1.8-8.9); NEUTROPHILS % (AUTO) 72.3 % (43.0-81.0); PLATELET COUNT (AUTO) 447 K/uL (150-450); RED BLOOD CELL COUNT(AUTO) 4.67 MIL/uL (4.5-6.0); RED CELL DISTRIBUTION WIDTH 14.5 % (11.5-15.0); WHITE BLOOD COUNT (AUTO) 10.6 K/uL (4.3-11.0)
[2023-11-09] MEDS ORDERED: INSULIN REGULAR, HUMAN 100 UNIT/ML 10 ML VIAL ONE ×2 (02:19→04:09)
[2023-11-09] MEDS: INSULIN REGULAR, HUMAN 100 UNIT/ML 10 ML VIAL IV ONE (02:24)
[2023-11-09 02:35] LABS: CALCIUM, SERUM 9.3 mg/dL (8.5-10.1); CARBON DIOXIDE 22 mmol/L (21-32); CHLORIDE 92 mmol/L (98-107); CREATININE 1.3 mg/dL (0.6-1.3); POTASSIUM 5.1 mmol/L (3.5-5.1); SODIUM SERUM 130 mmol/L (136-145); UREA NITROGEN, BLOOD 29 mg/dL (7-18)
[2023-11-09 02:45] LABS: ALANINE AMINOTRANSFERASE 21 U/L (12-78); ALKALINE PHOSPHATASE 216 U/L (46-116); ASPARTATE AMINOTRANSFERASE 26 U/L (15-37); BILIRUBIN,TOTAL 0.7 mg/dL (0.2-1.0); LIPASE 14 U/L (16-77); NT-PRO BNP 376 pg/mL (0-125); TOTAL PROTEIN, SERUM 8.1 g/dL (6.4-8.2)
[2023-11-09 02:47] LABS: GLUCOSE 819 mg/dL (74-106)
[2023-11-09 03:12] LABS: SITE, VBG Right Radial; VBG BASE EXCESS -5.6 mmol/L (-3-3); VBG COHb 0.3 %; VBG MetHb 0.2 %; VBG O2Hb 95.7 %; VBG OXYGEN SATURATION 96.2 %; VBG PH 7.325 (7.31-7.41); VBG TOTAL HEMOGLOBIN 13.4 G/dL (13.5-18.0); VENT MODE, VBG Room Air
[2023-11-09 03:28] LABS: ACETONE, SERUM LARGE (NEGATIVE)
[2023-11-09] MEDS: INSULIN REGULAR, HUMAN 100 UNIT in IV NS 0.9% 99 ML IV PRN ×2 (04:24→05:42)
[2023-11-09] MEDS ORDERED: MAGNESIUM HYDROXIDE 30 ML UDC PO PRN (05:00)
[2023-11-09] MEDS ORDERED: ENOXAPARIN SODIUM 40 MG/0.4 ML DISP.SYRIN SQ SCH (05:00)
[2023-11-09] MEDS ORDERED: ONDANSETRON HCL/PF 4 MG/2 ML VIAL IVP PRN (05:00)
[2023-11-09] MEDS ORDERED: MAG HYDROX/AL HYDROX/SIMETH 30 ML UDC PO PRN (05:00)
[2023-11-09] MEDS ORDERED: ZOLPIDEM TARTRATE 5 MG TABLET PO PRN (05:00)
[2023-11-09] MEDS ORDERED: Z GUARD REMEDY 4 OZ OINT TP PRN (05:00)
[2023-11-09] MEDS ORDERED: ACETAMINOPHEN 325 MG TABLET PO PRN ×2 (05:00→11:00)
[2023-11-09 05:31] LABS: LACTIC ACID REFLEX 1.1 mmol/L (0.4-1.9)
[2023-11-09] MEDS: IV NS 0.9% 1,000 ML IV PRN (05:43)
[2023-11-09] MEDS: BLOOD SUGAR DIAGNOSTIC 1 EACH STRIP IN SCH ×2 (05:44→12:57)
[2023-11-09 09:09] LABS: CALCIUM, SERUM 9.1 mg/dL (8.5-10.1); CARBON DIOXIDE 28 mmol/L (21-32); CHLORIDE 107 mmol/L (98-107); CREATININE 1.2 mg/dL (0.6-1.3); GLUCOSE 173 mg/dL (74-106); POTASSIUM 3.6 mmol/L (3.5-5.1); SODIUM SERUM 145 mmol/L (136-145); UREA NITROGEN, BLOOD 21 mg/dL (7-18)
[2023-11-09] MEDS: PANTOPRAZOLE 40 MG VIAL IV SCH (09:14)
[2023-11-09] MEDS: ENOXAPARIN SODIUM 40 MG/0.4 ML DISP.SYRIN SQ SCH (09:15)
[2023-11-09] MEDS: Potassium Chloride 20 MEQ in IV D5/0.45 NACL 1,000 ML IV SCH (09:17)
[2023-11-09] MEDS ORDERED: ACET325T53 PO (09:32)
[2023-11-09] MEDS ORDERED: MULT-594 PO (09:32)
[2023-11-09] MEDS ORDERED: INSU100V42 SQ ×2 (09:32)
[2023-11-09] MEDS ORDERED: MAG30ORA PO (09:32)
[2023-11-09] MEDS ORDERED: FAMO20TA8 PO (09:32)
[2023-11-09] MEDS ORDERED: MUPI22OI7 TP (09:32)
[2023-11-09] MEDS ORDERED: VITS42.53 TP (09:44)
[2023-11-09] MEDS ORDERED: TEA60OIL TP (09:44)
[2023-11-09] MEDS: POTASSIUM CL. PREMIX PERIPHER. 50 ML IV SCH (10:34)
[2023-11-09] MEDS ORDERED: ACETAMINOPHEN ES 500 MG TABLET PO PRN (11:00)
[2023-11-09] MEDS ORDERED: NA PHOS,M-B/NA PHOS,DI-BA 1 EA ENEMA RC PRN (11:00)
[2023-11-09] MEDS ORDERED: HOME MED MISCELLANEOUS XX SCH (11:00)
[2023-11-09] MEDS: CLOPIDOGREL BISULFATE 75 MG TABLET PO SCH (11:36)
[2023-11-09] MEDS: VITAMINS A AND D 56.7 GM TUBE TP SCH (11:36)
[2023-11-09] MEDS: MULTIVITAMINS,THERAGRAN 1 UDTAB TABLET PO SCH (11:36)
[2023-11-09] MEDS: ASPIRIN 81 MG TAB.CHEW PO SCH (11:36)
[2023-11-09] MEDS: ASCORBIC ACID 500 MG TABLET PO SCH (11:36)
[2023-11-09] MEDS: INSULIN REGULAR, HUMAN 100 UNIT/ML 3 ML VIAL SQ PRN (13:02)
[2023-11-09] MEDS ORDERED: FAMOTIDINE (20 MG) 20 MG TABLET PO SCH (17:00)
[2023-11-09] MEDS: METOPROLOL TARTRATE 25 MG TABLET PO SCH (17:56)
[2023-11-09] MEDS: QUETIAPINE FUMARATE 25 MG TABLET PO SCH (17:57)
[2023-11-09] MEDS: INSULIN GLARGINE, 100 UNIT/ML CARTRIDGE SQ SCH (22:40)
[2023-11-09] MEDS: ATORVASTATIN 40 MG TABLET PO SCH (22:56)
[2023-11-09] MEDS: *INSULIN REGULAR(HUMULIN R)HUM 100 UNIT/ML VIAL SQ PRN (23:19)
[2023-11-10] VITALS (10 sets, daily range): BP systolic 92–140; BP diastolic 47–87; TEMP 97.3–99.3; O2SAT 95–100
[2023-11-10] MEDS: DEXTROSE 50%-WATER 50 ML DISP.SYRIN IV PRN (05:00)
[2023-11-10 05:18] LABS: BASOPHILS % (AUTO) 0.3 % (0.0-2.0); EOSINOPHILS # (AUTO) 0.6 K/uL (0.0-0.7); EOSINOPHILS % (AUTO) 7.1 % (0.0-6.0); HEMATOCRIT 37 % (39-51); HEMOGLOBIN 12.5 g/dL (13.5-17.5); LYMPHOCYTES # (AUTO) 2.5 K/uL (0.8-4.8); LYMPHOCYTES % (AUTO) 29.9 % (20.0-44.0); MEAN CORPUSCULAR HEMOGLOBIN 32 PG (26.0-33.0); MEAN CORPUSCULAR HGB CONC 34 g/dl (31.0-36.0); MEAN CORPUSCULAR VOLUME 95 fL (80-96); MONOCYTES # (AUTO) 0.7 K/uL (0.1-1.30); MONOCYTES % (AUTO) 8.5 % (2.0-12.0); NEUTROPHILS # (AUTO) 4.6 K/uL (1.8-8.9); NEUTROPHILS % (AUTO) 54.2 % (43.0-81.0); PLATELET COUNT (AUTO) 402 K/uL (150-450); RED BLOOD CELL COUNT(AUTO) 3.94 MIL/uL (4.5-6.0); RED CELL DISTRIBUTION WIDTH 13.7 % (11.5-15.0); WHITE BLOOD COUNT (AUTO) 8.4 K/uL (4.3-11.0)
[2023-11-10 05:35] LABS: CALCIUM, SERUM 8.8 mg/dL (8.5-10.1); CARBON DIOXIDE 29 mmol/L (21-32); CHLORIDE 109 mmol/L (98-107); CREATININE 0.9 mg/dL (0.6-1.3); GLUCOSE 54 mg/dL (74-106); PHOSPHORUS 3.3 mg/dL (2.5-4.9); POTASSIUM 3.5 mmol/L (3.5-5.1); SODIUM SERUM 144 mmol/L (136-145); UREA NITROGEN, BLOOD 18 mg/dL (7-18)
[2023-11-10 05:48] LABS: THYROID STIMULATING HORMONE 1.465 uIU/mL (0.358-3.74)
[2023-11-10] MEDS: PANTOPRAZOLE 40 MG/PACK PACK PO SCH (08:30)
[2023-11-10] MEDS: ACETAMINOPHEN 325 MG TABLET PO SCH (08:30)
[2023-11-10] MEDS ORDERED: DEXTROSE 50%-WATER 50 ML DISP.SYRIN IV PRN (10:00)
[2023-11-10] MEDS: BLOOD SUGAR DIAGNOSTIC 1 EACH STRIP IN SCH (11:24)
[2023-11-10 17:11] LABS: APPEARANCE,URINE CLEAR (CLEAR); BILIRUBIN,URINE NEGATIVE (NEGATIVE); BLOOD, URINE TRACE-INTA Ery/uL (NEGATIVE); COLOR,URINE YELLOW (YELLOW); KETONES,URINE 2+ mg/dL (NEGATIVE); LEUKOCYTE ESTERASE ,URINE NEGATIVE (NEGATIVE); NITRITE, URINE NEGATIVE (NEGATIVE); PH,URINE 5.5 (5.0-8.0); PROTEIN,URINE NEGATIVE (NEGATIVE); UGLUCOSE 3+ mg/dL (NEGATIVE); UROBILINOGEN,URINE 0.2 EU/dL (0.2)
[2023-11-10 17:16] LABS: ADD URINE CULTURE NO; BACTERIA,URINE None seen /HPF (None Seen); SQUAMOUS EPITHELIAL CELL,UR 0-2 /HPF (None Seen); WBC,URINE 0-2 /HPF (0-3)
[2023-11-11] VITALS: BP 132/95; TEMP 98; O2SAT 97
[2023-11-11 04:00] VITALS: BP 120/77; TEMP 98.1; O2SAT 97
[2023-11-11 08:00] VITALS: BP 136/100; TEMP 97.7; O2SAT 97
[2023-11-11] MEDS: PERMETHRIN 5% CRM 60 GM TUBE TP ONE (08:30)
[2023-11-11] MEDS: CLOTRIMAZOLE 1% 15 GM TUBE TP SCH (08:46)
[2023-11-11] MEDS: INSULIN REGULAR, HUMAN 100 UNIT/ML 3 ML VIAL SQ PRN (11:45)
[2023-11-11 12:00] VITALS: BP 135/75; TEMP 98.2; O2SAT 99
[2023-11-11 12:29] VITALS: BP 135/74; TEMP 98.2; O2SAT 100
== END 2023-11-11 14:00 | DRG 637 ==
LOC: ER 01:39 → ICU 04:31 → MED 11-10 05:49 → TELE 11-10 06:54
PROVIDERS: ADMIT Nurse Practitioner Acute Care; ATTEND Nurse Practitioner Acute Care
PROC: 02HV33Z Insertion of Infusion Device into Superior Vena Cava, Percutaneous Approach (ICD-10-PCS; principal; 2023-11-09)
PROC: B548ZZA Ultrasonography of Superior Vena Cava, Guidance (ICD-10-PCS; 2023-11-09)
DX: E11.10 Type 2 diabetes mellitus with ketoacidosis without coma (principal); E43 Unspecified severe protein-calorie malnutrition; G93.41 Metabolic encephalopathy; E87.1 Hypo-osmolality and hyponatremia; F02.818 Dementia in other diseases classified elsewhere, unspecified severity, with other behavioral disturbance; N17.9 Acute kidney failure, unspecified; G30.9 Alzheimer's disease, unspecified; F20.9 Schizophrenia, unspecified; I11.0 Hypertensive heart disease with heart failure; I50.9 Heart failure, unspecified; M81.0 Age-related osteoporosis without current pathological fracture; I25.10 Atherosclerotic heart disease of native coronary artery without angina pectoris; G40.909 Epilepsy, unspecified, not intractable, without status epilepticus; Z20.822 Contact with and (suspected) exposure to COVID-19; Z86.73 Personal history of transient ischemic attack (TIA), and cerebral infarction without residual deficits; I70.0 Atherosclerosis of aorta; I25.2 Old myocardial infarction; K21.9 Gastro-esophageal reflux disease without esophagitis; K29.70 Gastritis, unspecified, without bleeding; Z86.16 Personal history of COVID-19; Z95.5 Presence of coronary angioplasty implant and graft; Z95.1 Presence of aortocoronary bypass graft; Z79.02 Long term (current) use of antithrombotics/antiplatelets; Z79.4 Long term (current) use of insulin; Z79.82 Long term (current) use of aspirin; Z79.899 Other long term (current) drug therapy; E88.09 Other disorders of plasma-protein metabolism, not elsewhere classified; E78.5 Hyperlipidemia, unspecified; E11.51 Type 2 diabetes mellitus with diabetic peripheral angiopathy without gangrene; E11.65 Type 2 diabetes mellitus with hyperglycemia
CPT/HCPCS: 36415; 36600; 71045-TC; 80048-TC; 80053-TC; 81001; 82010-TC; 82248-TC; 82803-TC; 82962-TC; 83605-TC; 83690-TC; 83735-TC; 83880; 84100-TC; 84443-TC; 84484-TC; 85025-TC; 92526; 92611-TC; 97110-TC; 97116-TC; 97530-TC; 97535-TC; A4223; C9113; G0378; J1650; J1815; J3480; J3490; J7030

== ENCOUNTER 2024-08-18 23:39 | Inpatient (IN) | payer MEDICARE, OTHER ==
[~2024-08-18] VITALS: Ht 177.8 cm; Wt 57.8 kg
[~2024-08-18 23:39] MED LIST changes: +ACET325T53 PO; -CAMP85GE TP; -DIPH28.34 TP; +FAMO20TA8 PO; -FOLI0.4T6 PO; -GEL100GE TP; -INSU100V27 SQ; -INSU100V39 SQ; +INSU100V42 SQ; +MAG30ORA PO; -MICO45CR11 TP; +MULT-594 PO; +MUPI22OI7 TP; +NYST60PO TP; +OSEL75CA GT; -SULF1TAB48 PO; +TEA60OIL TP; +VITS42.53 TP
[2024-08-19] MEDS ORDERED: INSULIN REGULAR, HUMAN 100 UNIT/ML 10 ML VIAL ONE (00:46)
[2024-08-19] MEDS: IV NS 0.9% 1,000 ML BAG IV ONE (00:52)
[2024-08-19] MEDS: INSULIN REGULAR, HUMAN 100 UNIT/ML 10 ML VIAL IV ONE (00:52)
[2024-08-19 01:04] LABS: ABG BASE EXCESS -1.1 mmol/L (-2.0-3.0); ABG OXYGEN SATURATION 97.1 % (94.0-98.0); ABG PCO2 29.1 mmHg (35.0-48.0); ABG PH 7.477 (7.350-7.450); COHb 0.3 % (0.5-1.5); MetHb 0.3 % (0.0-1.5); O2Hb 96.5 % (94.0-97.0); SITE, ABG LEFT BRACHIAL
[2024-08-19 01:26] LABS: ALBUMIN 2.7 g/dL (3.4-5.0); BILIRUBIN,DIRECT 0.1 mg/dL (0.0-0.2); BILIRUBIN,TOTAL 0.3 mg/dL (0.2-1.0); POTASSIUM 4.7 mmol/L (3.5-5.1); TOTAL PROTEIN, SERUM 8.5 g/dL (6.4-8.2)
[2024-08-19 01:36] LABS: BASOPHILS # (AUTO) 0.1 K/uL (0.0-0.2); BASOPHILS % (AUTO) 0.4 % (0.0-2.0); HEMATOCRIT 45 % (39-51); HEMOGLOBIN 15.2 g/dL (13.5-17.5); LYMPHOCYTES # (AUTO) 1.3 K/uL (0.8-4.8); LYMPHOCYTES % (AUTO) 4.1 % (20.0-44.0); MEAN CORPUSCULAR HEMOGLOBIN 31 PG (26.0-33.0); MEAN CORPUSCULAR HGB CONC 34 g/dl (31.0-36.0); MEAN CORPUSCULAR VOLUME 92 fL (80-96); MONOCYTES # (AUTO) 1.5 K/uL (0.1-1.30); NEUTROPHILS # (AUTO) 27.8 K/uL (1.8-8.9); NEUTROPHILS % (AUTO) 90.5 % (43.0-81.0); PLATELET COUNT (AUTO) 886 K/uL (150-450); RED BLOOD CELL COUNT(AUTO) 4.88 MIL/uL (4.5-6.0); RED CELL DISTRIBUTION WIDTH 13.4 % (11.5-15.0)
[2024-08-19 01:39] LABS: WHITE BLOOD COUNT (AUTO) 30.7 K/uL (4.3-11.0)
[2024-08-19 02:26] LABS: LACTIC ACID 2.3 mmol/L (0.4-2.0)
[2024-08-19] MEDS ORDERED: CEFEPIME 1 GM VIAL ONE (02:27)
[2024-08-19] MEDS ORDERED: ONDANSETRON HCL/PF 4 MG/2 ML VIAL IVP PRN (02:30)
[2024-08-19] MEDS ORDERED: ACETAMINOPHEN 325 MG TABLET PO PRN (02:30)
[2024-08-19] MEDS ORDERED: MAG HYDROX/AL HYDROX/SIMETH 30 ML UDC PO PRN (02:30)
[2024-08-19] MEDS ORDERED: Z GUARD REMEDY 4 OZ OINT TP PRN (02:30)
[2024-08-19] MEDS ORDERED: MAGNESIUM HYDROXIDE 30 ML UDC PO PRN (02:30)
[2024-08-19] MEDS: CEFEPIME 1 GM in IV D5W 50 ML IV ONE (02:36)
[2024-08-19] MEDS ORDERED: INSULIN REGULAR, HUMAN 100 UNIT/ML 3 ML VIAL SQ PRN (03:00)
[2024-08-19 04:22] LABS: APPEARANCE,URINE CLEAR (CLEAR); BILIRUBIN,URINE 1+ (NEGATIVE); BLOOD, URINE 1+ Ery/uL (NEGATIVE); COLOR,URINE YELLOW (YELLOW); KETONES,URINE 1+ mg/dL (NEGATIVE); LEUKOCYTE ESTERASE ,URINE NEGATIVE (NEGATIVE); NITRITE, URINE NEGATIVE (NEGATIVE); PROTEIN,URINE 1+ mg/dl (NEGATIVE); UGLUCOSE 3+ mg/dL (NEGATIVE); UROBILINOGEN,URINE 0.2 EU/dL (0.2)
[2024-08-19 04:38] LABS: RBC,URINE 0-2 /HPF (0-2); WBC,URINE 0-2 /HPF (0-3)
[2024-08-19 04:39] LABS: ADD URINE CULTURE NO; BACTERIA,URINE None seen /HPF (None Seen); SQUAMOUS EPITHELIAL CELL,UR None Seen /HPF (None Seen)
[2024-08-19 05:15] LABS: BASOPHILS % (MANUAL) 0 % (0.0-2.0); EOSINOPHILS % (MANUAL) 0 % (0-4); LYMPHOCYTES % (MANUAL) 9 % (16-48); MONOCYTES % (MANUAL) 7 % (0-11.0); NEUTROPHILS % (MANUAL) 84 (42-76); PLATELET ESTIMATE INCREASED
[2024-08-19] MEDS ORDERED: GLUCAGON,HUMAN RECOMBINANT 1 MG/VIAL VIAL IM PRN (05:30)
[2024-08-19] MEDS: BLOOD SUGAR DIAGNOSTIC 1 EACH STRIP IN SCH (07:56)
[2024-08-19] MEDS ORDERED: SORBITOL SOLUTION 70% 30 ML SOLUTION PO SCH (09:00)
[2024-08-19 09:20] VITALS: BP 143/88; TEMP 98.4; O2SAT 97
[2024-08-19] MEDS ORDERED: *INSULIN REGULAR(HUMULIN R)HUM 100 UNIT/ML VIAL SQ PRN (10:00)
[2024-08-19] MEDS ORDERED: DEXTROSE 50%-WATER 50 ML DISP.SYRIN IV PRN (10:00)
[2024-08-19] MEDS: ASPIRIN 81 MG TAB.CHEW PO SCH (10:34)
[2024-08-19] MEDS: MULTIVITAMINS,THERAGRAN 1 UDTAB TABLET PO SCH (10:34)
[2024-08-19] MEDS: ASCORBIC ACID 500 MG TABLET PO SCH (10:34)
[2024-08-19] MEDS: PANTOPRAZOLE 40 MG VIAL IV SCH (10:34)
[2024-08-19] MEDS: QUETIAPINE FUMARATE 25 MG TABLET PO SCH (10:37)
[2024-08-19] MEDS: METOPROLOL TARTRATE 25 MG TABLET PO SCH (10:37)
[2024-08-19] MEDS: CLOPIDOGREL BISULFATE 75 MG TABLET PO SCH (10:37)
[2024-08-19] MEDS ORDERED: DIPH25TA27 PO (11:01)
[2024-08-19] MEDS ORDERED: INSU100V3 SQ (11:01)
[2024-08-19] MEDS ORDERED: MULT-619 PO (11:01)
[2024-08-19 12:00] VITALS: BP 152/98; TEMP 98.1; O2SAT 95
[2024-08-19] MEDS ORDERED: BLOOD SUGAR DIAGNOSTIC 1 EACH STRIP IN SCH (12:00)
[2024-08-19] MEDS: VITAMINS A AND D 56.7 GM TUBE TP SCH (12:02)
[2024-08-19] MEDS: INSULIN REGULAR, HUMAN 100 UNIT/ML 3 ML VIAL SQ PRN (12:37)
[2024-08-19] MEDS: INSULIN GLARGINE, 100 UNIT/ML CARTRIDGE SQ SCH (12:39)
[2024-08-19] MEDS: CEFEPIME 1 GM in IV D5W 50 ML IV SCH (15:06)
[2024-08-19 16:00] VITALS: BP 145/81; TEMP 98.2; O2SAT 96
[2024-08-19] MEDS: IV 1/2NS 1000 ML 1,000 ML IV PRN (16:10)
[2024-08-19 17:16] LABS: BASOPHILS % (AUTO) 0.1 % (0.0-2.0); HEMATOCRIT 43 % (39-51); HEMOGLOBIN 14.8 g/dL (13.5-17.5); LYMPHOCYTES # (AUTO) 1.8 K/uL (0.8-4.8); LYMPHOCYTES % (AUTO) 7.1 % (20.0-44.0); MEAN CORPUSCULAR HEMOGLOBIN 32 PG (26.0-33.0); MEAN CORPUSCULAR HGB CONC 35 g/dl (31.0-36.0); MEAN CORPUSCULAR VOLUME 92 fL (80-96); MONOCYTES # (AUTO) 1.3 K/uL (0.1-1.30); MONOCYTES % (AUTO) 5.2 % (2.0-12.0); NEUTROPHILS # (AUTO) 22.5 K/uL (1.8-8.9); NEUTROPHILS % (AUTO) 87.6 % (43.0-81.0); PLATELET COUNT (AUTO) 717 K/uL (150-450); RED BLOOD CELL COUNT(AUTO) 4.67 MIL/uL (4.5-6.0); RED CELL DISTRIBUTION WIDTH 13.9 % (11.5-15.0); WHITE BLOOD COUNT (AUTO) 25.7 K/uL (4.3-11.0)
[2024-08-19 17:21] LABS: CALCIUM, SERUM 9.8 mg/dL (8.5-10.1); CREATININE 1.5 mg/dL (0.6-1.3); MAGNESIUM 2.6 mg/dL (1.8-2.4); PHOSPHORUS 2.4 mg/dL (2.5-4.9); POTASSIUM 4.4 mmol/L (3.5-5.1)
[2024-08-19 20:00] VITALS: BP 160/91; TEMP 97.9; O2SAT 96
[2024-08-19] MEDS: DEXTROSE 50%-WATER 50 ML DISP.SYRIN IV PRN (21:17)
[2024-08-19] MEDS: ATORVASTATIN 40 MG TABLET PO SCH (21:36)
[2024-08-19 23:00] VITALS: BP 134/92; TEMP 97.5; O2SAT 98
[2024-08-19 23:24] VITALS: BP 134/92; TEMP 97.5; O2SAT 96
[2024-08-20] VITALS: BP 121/75; TEMP 97.5; O2SAT 97; O2SAT 98
[2024-08-20 04:00] VITALS: BP 153/82; TEMP 97.7; O2SAT 97
[2024-08-20 05:00] VITALS: BP 153/82; TEMP 97.7; O2SAT 97
[2024-08-20 08:00] VITALS: BP 151/81; TEMP 98.1; O2SAT 98
[2024-08-20] MEDS: PANTOPRAZOLE 40 MG TABLET.DR PO SCH (09:51)
[2024-08-20] MEDS ORDERED: *INSULIN REGULAR(HUMULIN R)HUM 100 UNIT/ML VIAL SQ PRN (11:30)
[2024-08-20 11:49] LABS: BASOPHILS % (AUTO) 0.3 % (0.0-2.0); EOSINOPHILS % (AUTO) 0.2 % (0.0-6.0); HEMATOCRIT 44 % (39-51); HEMOGLOBIN 14.2 g/dL (13.5-17.5); LYMPHOCYTES # (AUTO) 2.2 K/uL (0.8-4.8); LYMPHOCYTES % (AUTO) 14.3 % (20.0-44.0); MEAN CORPUSCULAR HEMOGLOBIN 31 PG (26.0-33.0); MEAN CORPUSCULAR HGB CONC 32 g/dl (31.0-36.0); MEAN CORPUSCULAR VOLUME 98 fL (80-96); MONOCYTES # (AUTO) 0.7 K/uL (0.1-1.30); MONOCYTES % (AUTO) 4.7 % (2.0-12.0); NEUTROPHILS # (AUTO) 12.5 K/uL (1.8-8.9); NEUTROPHILS % (AUTO) 80.5 % (43.0-81.0); PLATELET COUNT (AUTO) 448 K/uL (150-450); RED BLOOD CELL COUNT(AUTO) 4.52 MIL/uL (4.5-6.0); RED CELL DISTRIBUTION WIDTH 14.9 % (11.5-15.0); WHITE BLOOD COUNT (AUTO) 15.5 K/uL (4.3-11.0)
[2024-08-20 12:08] LABS: CALCIUM, SERUM 9.8 mg/dL (8.5-10.1); CARBON DIOXIDE 21 mmol/L (21-32); CHLORIDE 115 mmol/L (98-107); CREATININE 1.1 mg/dL (0.6-1.3); GLUCOSE 209 mg/dL (74-106); MAGNESIUM 2.8 mg/dL (1.8-2.4); PHOSPHORUS 2.9 mg/dL (2.5-4.9); POTASSIUM 4.9 mmol/L (3.5-5.1); SODIUM SERUM 147 mmol/L (136-145); UREA NITROGEN, BLOOD 32 mg/dL (7-18)
[2024-08-20] MEDS: INSULIN REGULAR, HUMAN 100 UNIT/ML 3 ML VIAL SQ PRN (12:29)
[2024-08-20 14:07] LABS: CREATINE KINASE, TOTAL 205 U/L (39-308)
[2024-08-20 15:42] LABS: LACTIC ACID 3.5 mmol/L (0.4-2.0)
[2024-08-20] MEDS: CLOTRIMAZOLE 1% 15 GM TUBE TP SCH (17:00)
[2024-08-20 18:22] LABS: BILIRUBIN,DIRECT 0.1 mg/dL (0.0-0.2)
[2024-08-20 19:14] LABS: LACTIC ACID REFLEX 3.1 mmol/L (0.4-1.9)
[2024-08-20 20:00] VITALS: BP 118/68; TEMP 97.5; O2SAT 99
[2024-08-21 07:09] LABS: BASOPHILS # (AUTO) 0.1 K/uL (0.0-0.2); BASOPHILS % (AUTO) 0.5 % (0.0-2.0); EOSINOPHILS # (AUTO) 0.1 K/uL (0.0-0.7); EOSINOPHILS % (AUTO) 1.2 % (0.0-6.0); HEMATOCRIT 40 % (39-51); HEMOGLOBIN 13.2 g/dL (13.5-17.5); LYMPHOCYTES # (AUTO) 2.4 K/uL (0.8-4.8); LYMPHOCYTES % (AUTO) 21.2 % (20.0-44.0); MEAN CORPUSCULAR HEMOGLOBIN 31 PG (26.0-33.0); MEAN CORPUSCULAR HGB CONC 33 g/dl (31.0-36.0); MEAN CORPUSCULAR VOLUME 93 fL (80-96); MONOCYTES # (AUTO) 0.6 K/uL (0.1-1.30); MONOCYTES % (AUTO) 5.4 % (2.0-12.0); NEUTROPHILS % (AUTO) 71.7 % (43.0-81.0); PLATELET COUNT (AUTO) 581 K/uL (150-450); RED BLOOD CELL COUNT(AUTO) 4.27 MIL/uL (4.5-6.0); WHITE BLOOD COUNT (AUTO) 11.1 K/uL (4.3-11.0)
[2024-08-21 07:19] LABS: CALCIUM, SERUM 8.7 mg/dL (8.5-10.1); CREATININE 0.9 mg/dL (0.6-1.3); POTASSIUM 3.8 mmol/L (3.5-5.1)
[2024-08-21 08:08] VITALS: BP 138/81; TEMP 97.7; O2SAT 97
[2024-08-21 08:29] LABS: MAGNESIUM 2.2 mg/dL (1.8-2.4); PHOSPHORUS 2.3 mg/dL (2.5-4.9)
[2024-08-21] MEDS: SILVER SULFADIAZINE CREAM 25 GM TUBE TP SCH (11:55)
[2024-08-21] MEDS: K PHOS NEUTRAL 250 MG TABLET PO ONE (15:41)
[2024-08-21 15:55] VITALS: BP 146/78; TEMP 97.7; O2SAT 94
[2024-08-21 20:00] VITALS: BP 145/72; TEMP 97.9; O2SAT 97
[2024-08-22 08:00] VITALS: BP 141/71; TEMP 98.2; O2SAT 96
[2024-08-22] MEDS ORDERED: INSU100V7 SQ (09:57)
[2024-08-22] MEDS ORDERED: AMOX-427 PO (09:57)
[2024-08-23 15:06] LABS: PTH, INTACT 23 pg/mL (15-65)
[2024-08-25 05:07] LABS: *SPE A/G RATIO 0.7 (0.7-1.7); *SPE ALBUMIN 2.5 g/dL (2.9-4.4); *SPE ALPHA-1-GLOBULIN 0.3 g/dL (0.0-0.4); *SPE ALPHA-2-GLOBULIN 0.9 g/dL (0.4-1.0); *SPE BETA GLOBULIN 1.3 g/dL (0.7-1.3); *SPE GLOBULIN, TOTAL 3.4 g/dL (2.2-3.9); *SPE M-SPIKE Not Observed g/dL (Not Observed); *SPE PROTEIN TOTAL 5.9 g/dL (6.0-8.5)
== END 2024-08-22 13:30 | DRG 871 ==
LOC: ER 23:41 → TRANSITION 08-19 04:11 → TELE1 08-19 07:43 → TELE 08-19 22:55 → MED 08-20 10:24
PROVIDERS: ADMIT Student in an Organized Health Care Education/Training Program; ATTEND Student in an Organized Health Care Education/Training Program
DX: A41.9 Sepsis, unspecified organism (principal); G93.41 Metabolic encephalopathy; J15.69 Pneumonia due to other Gram-negative bacteria; N17.0 Acute kidney failure with tubular necrosis; L97.909 Non-pressure chronic ulcer of unspecified part of unspecified lower leg with unspecified severity; E44.0 Moderate protein-calorie malnutrition; E87.0 Hyperosmolality and hypernatremia; E87.20 Acidosis, unspecified; I10 Essential (primary) hypertension; K21.9 Gastro-esophageal reflux disease without esophagitis; M81.0 Age-related osteoporosis without current pathological fracture; I11.0 Hypertensive heart disease with heart failure; M89.8X9 Other specified disorders of bone, unspecified site; G30.9 Alzheimer's disease, unspecified; Z95.5 Presence of coronary angioplasty implant and graft; Z79.02 Long term (current) use of antithrombotics/antiplatelets; Z79.4 Long term (current) use of insulin; Z20.822 Contact with and (suspected) exposure to COVID-19; F20.9 Schizophrenia, unspecified; L89.626 Pressure-induced deep tissue damage of left heel; L89.616 Pressure-induced deep tissue damage of right heel; Z79.899 Other long term (current) drug therapy; Z86.73 Personal history of transient ischemic attack (TIA), and cerebral infarction without residual deficits; Z86.16 Personal history of COVID-19; Z95.1 Presence of aortocoronary bypass graft; I25.10 Atherosclerotic heart disease of native coronary artery without angina pectoris; Z79.01 Long term (current) use of anticoagulants; I50.9 Heart failure, unspecified; F02.80 Dementia in other diseases classified elsewhere, unspecified severity, without behavioral disturbance, psychotic disturbance, mood disturbance, and anxiety; E11.65 Type 2 diabetes mellitus with hyperglycemia; E78.5 Hyperlipidemia, unspecified; D75.839 Thrombocytosis, unspecified; E83.39 Other disorders of phosphorus metabolism; E86.9 Volume depletion, unspecified; B96.89 Other specified bacterial agents as the cause of diseases classified elsewhere; L89.896 Pressure-induced deep tissue damage of other site; E11.649 Type 2 diabetes mellitus with hypoglycemia without coma
CPT/HCPCS: 36415; 36600; 71045-TC; 76770-TC; 80048-TC; 80076-TC; 81001; 82010-TC; 82248-TC; 82550-TC; 82803-TC; 82962-TC; 83605-TC; 83735-TC; 83970; 84100-TC; 84155; 84165; 85025-TC; 87040-TC; A4223; G0378; J0692; J1815; J2405; J2470; J3490; J7030; J7050; J7060

== ENCOUNTER 2025-02-10 23:52 | Inpatient (IN) | payer MEDICARE, OTHER ==
[~2025-02-10] VITALS: Ht 172.7 cm; Wt 71.7 kg
[~2025-02-10 23:52] MED LIST changes: -ACET325T53 PO; +AMOX-427 PO; -ASCO-352 PO; +DIPH25TA27 PO; -FAMO20TA8 PO; +INSU100V3 SQ; -INSU100V42 SQ; -MELA5TAB PO; +MULT-619 PO; -MUPI22OI7 TP; -QUET25TA PO; -SORB30SO2 PO; -TEA60OIL TP; -VITS42.53 TP
[2025-02-11] MEDS: DEXTROSE 50%-WATER 50 ML DISP.SYRIN IVP ONE (01:45)
[2025-02-11 01:52] LABS: PLATELET COUNT (AUTO) 506 K/uL (150-450); RED BLOOD CELL COUNT(AUTO) 5.09 MIL/uL (4.5-6.0); RED CELL DISTRIBUTION WIDTH 14.3 % (11.5-15.0); WHITE BLOOD COUNT (AUTO) 15.0 K/uL (4.3-11.0)
[2025-02-11 02:00] LABS: CALCIUM, SERUM 9.5 mg/dL (8.5-10.1); CREATININE 0.8 mg/dL (0.6-1.3); SODIUM SERUM 151 mmol/L (136-145); UREA NITROGEN, BLOOD 36 mg/dL (7-18)
[2025-02-11] MEDS ORDERED: DEXTROSE 50%-WATER 50 ML DISP.SYRIN ONE (02:03)
[2025-02-11 02:05] LABS: INR 0.99 (0.91-1.10)
[2025-02-11 02:12] LABS: ASPARTATE AMINOTRANSFERASE 70 U/L (15-37); NT-PRO BNP 941 pg/mL (0-125); TOTAL PROTEIN, SERUM 8.1 g/dL (6.4-8.2)
[2025-02-11 03:16] LABS: APPEARANCE,URINE SLIGHTLY CLOUDY (CLEAR); BLOOD, URINE 1+ Ery/uL (NEGATIVE); LEUKOCYTE ESTERASE ,URINE TRACE (NEGATIVE); NITRITE, URINE NEGATIVE (NEGATIVE); UGLUCOSE TRACE mg/dL (NEGATIVE)
[2025-02-11 03:38] LABS: ADD URINE CULTURE YES
[2025-02-11 03:39] LABS: SQUAMOUS EPITHELIAL CELL,UR Rare /HPF (None Seen)
[2025-02-11 03:41] LABS: URINE AMORPHOUS URATE Few /HPF (None Seen)
[2025-02-11] MEDS ORDERED: Z GUARD REMEDY 4 OZ OINT TP PRN (04:00)
[2025-02-11] MEDS ORDERED: MAGNESIUM HYDROXIDE 30 ML UDC PO PRN (04:00)
[2025-02-11] MEDS ORDERED: MAG HYDROX/AL HYDROX/SIMETH 30 ML UDC PO PRN (04:00)
[2025-02-11] MEDS ORDERED: ACETAMINOPHEN 325 MG TABLET PO PRN (04:00)
[2025-02-11] MEDS ORDERED: DOSING PER PHARMACY-VANCOMYCIN IV XX PRN (04:00)
[2025-02-11] MEDS ORDERED: ONDANSETRON HCL/PF 4 MG/2 ML VIAL IVP PRN (04:00)
[2025-02-11] MEDS ORDERED: DEXTROSE 50%-WATER 50 ML DISP.SYRIN IV PRN (04:00)
[2025-02-11] MEDS ORDERED: PIPERACILLIN /TAZOBACTAM 2.25 G in IV D5W 50 ML IV SCH (05:00)
[2025-02-11] MEDS ORDERED: ENOXAPARIN SODIUM 40 MG/0.4 ML DISP.SYRIN SQ ONE (06:51)
[2025-02-11] MEDS: ENOXAPARIN SODIUM 40 MG/0.4 ML DISP.SYRIN SQ SCH (06:54)
[2025-02-11] MEDS: BLOOD SUGAR DIAGNOSTIC 1 EACH STRIP VI SCH (07:30)
[2025-02-11] MEDS ORDERED: Medication Not On Formulary EA (Multivitamins (Multivitamin) 1 TAB) PO SCH (09:00)
[2025-02-11] MEDS: VANCOMYCIN 750 MG in IV D5W 250 ML IV SCH (10:29)
[2025-02-11] MEDS: CLOPIDOGREL BISULFATE 75 MG TABLET PO SCH (10:54)
[2025-02-11] MEDS: ASPIRIN 81 MG TAB.CHEW PO SCH (10:54)
[2025-02-11] MEDS: MULTIVIT W/MINERALS 1 TAB TABLET PO SCH (10:55)
[2025-02-11] MEDS: POTASSIUM CHLORIDE 20 MEQ TAB.PRT.SR PO SCH (10:55)
[2025-02-11] MEDS: METOPROLOL TARTRATE 25 MG TABLET PO SCH (10:56)
[2025-02-11] MEDS: PANTOPRAZOLE 40 MG VIAL IV SCH (10:57)
[2025-02-11 12:15] VITALS: BP 140/74; TEMP 97.9; O2SAT 99
[2025-02-11] MEDS: PIPERACILLIN /TAZOBACTAM 3.375 G in IV D5W 100 ML IV SCH (12:55)
[2025-02-11] MEDS: IV D5W 1,000 ML IV PRN (13:03)
[2025-02-11 13:57] VITALS: BP 159/60; TEMP 97.5; O2SAT 98
[2025-02-11 16:00] VITALS: BP 115/54; TEMP 97.3; O2SAT 98
[2025-02-11] MEDS: INSULIN REGULAR, HUMAN 100 UNIT/ML 3 ML VIAL SQ PRN (17:24)
[2025-02-11 20:00] VITALS: BP 114/61; TEMP 98.6; O2SAT 99
[2025-02-11] MEDS: VANCOMYCIN 1 GM in IV D5W 250 ML IV SCH (20:10)
[2025-02-11] MEDS: ATORVASTATIN 40 MG TABLET PO SCH (22:28)
[2025-02-12] VITALS (7 sets, daily range): BP systolic 113–141; BP diastolic 61–76; TEMP 97.5–98.4; O2SAT 98–99
[2025-02-12] MEDS ORDERED: PANTOPRAZOLE 40 MG TABLET.DR PO SCH (09:00)
[2025-02-12] MEDS: PANTOPRAZOLE 40 MG/PACK PACK PO SCH (09:00)
[2025-02-12] MEDS ORDERED: QUETIAPINE FUMARATE 25 MG TABLET PO PRN (10:00)
[2025-02-12] MEDS: QUETIAPINE FUMARATE 25 MG TABLET PO SCH (18:02)
[2025-02-12] MEDS: *INSULIN REGULAR(HUMULIN R)HUM 100 UNIT/ML VIAL SQ PRN (21:44)
[2025-02-12] MEDS: INSULIN REGULAR, HUMAN 100 UNIT/ML 10 ML VIAL SQ ONE (22:38)
[2025-02-13] VITALS: BP 142/70; TEMP 98.2; O2SAT 97
[2025-02-13 04:00] VITALS: BP_SYST 135; BP_DIAS 62; BP_DIAS 63; TEMP 97.6; O2SAT 98
[2025-02-13 08:00] VITALS: BP 134/74; TEMP 98.1; O2SAT 98
[2025-02-13] MEDS: VANCOMYCIN 1 GM in IV D5W 250 ML IV SCH (10:47)
[2025-02-13 16:00] VITALS: BP 158/79; TEMP 98.4; O2SAT 99
[2025-02-13] MEDS: LORAZEPAM 0.5 MG TABLET PO PRN (16:06)
[2025-02-13 19:09] LABS: ASPARTATE AMINOTRANSFERASE 18.0 U/L (15-37); CALCIUM, SERUM 8.7 mg/dL (8.5-10.1); CREATININE 0.8 mg/dL (0.6-1.3); PHOSPHORUS 3.6 mg/dL (2.5-4.9); SODIUM SERUM 142.0 mmol/L (136-145); TOTAL PROTEIN, SERUM 6.8 g/dL (6.4-8.2); UREA NITROGEN, BLOOD 19.0 mg/dL (7-18)
[2025-02-13 19:14] LABS: PLATELET COUNT (AUTO) 326 K/uL (150-450); RED BLOOD CELL COUNT(AUTO) 4.95 MIL/uL (4.5-6.0); RED CELL DISTRIBUTION WIDTH 13.7 % (11.5-15.0); WHITE BLOOD COUNT (AUTO) 7.7 K/uL (4.3-11.0)
[2025-02-13 19:18] LABS: CREATINE KINASE, TOTAL 55.0 U/L (39-308)
[2025-02-13 20:00] VITALS: BP 153/76; TEMP 98; O2SAT 98
[2025-02-14 04:00] VITALS: BP 134/60; TEMP 97.9; O2SAT 98
[2025-02-14 07:30] VITALS: BP 139/70; TEMP 98.1; O2SAT 97
[2025-02-14 08:00] VITALS: BP 139/70; TEMP 98.1; O2SAT 97
[2025-02-14 16:00] VITALS: BP 132/72; TEMP 98.1; O2SAT 99
[2025-02-16 01:08] LABS: PTH, INTACT 21 pg/mL (15-65)
== END 2025-02-14 17:05 | DRG 637 ==
LOC: ER 23:59 → MS IN 02-11 06:31 → MEDSG1 02-11 07:55 → TELE1 02-11 08:38 → MEDSG1 02-12 08:58
DX: E11.649 Type 2 diabetes mellitus with hypoglycemia without coma (principal); I21.A1 Myocardial infarction type 2; E44.0 Moderate protein-calorie malnutrition; G93.40 Encephalopathy, unspecified; E87.0 Hyperosmolality and hypernatremia; N39.0 Urinary tract infection, site not specified; I10 Essential (primary) hypertension; G40.909 Epilepsy, unspecified, not intractable, without status epilepticus; Z86.73 Personal history of transient ischemic attack (TIA), and cerebral infarction without residual deficits; M81.0 Age-related osteoporosis without current pathological fracture; Z95.5 Presence of coronary angioplasty implant and graft; I25.10 Atherosclerotic heart disease of native coronary artery without angina pectoris; E78.5 Hyperlipidemia, unspecified; F02.80 Dementia in other diseases classified elsewhere, unspecified severity, without behavioral disturbance, psychotic disturbance, mood disturbance, and anxiety; G30.9 Alzheimer's disease, unspecified; K29.70 Gastritis, unspecified, without bleeding; Z95.1 Presence of aortocoronary bypass graft; Z86.16 Personal history of COVID-19; Z79.4 Long term (current) use of insulin; Z79.02 Long term (current) use of antithrombotics/antiplatelets; Z79.82 Long term (current) use of aspirin; Z79.899 Other long term (current) drug therapy; I50.9 Heart failure, unspecified; I11.0 Hypertensive heart disease with heart failure; F20.9 Schizophrenia, unspecified; E86.0 Dehydration; E87.6 Hypokalemia; M89.8X9 Other specified disorders of bone, unspecified site; F29 Unspecified psychosis not due to a substance or known physiological condition; R79.89 Other specified abnormal findings of blood chemistry; E11.65 Type 2 diabetes mellitus with hyperglycemia
CPT/HCPCS: 36415; 71045-TC; 80053-TC; 80202-TC; 81001; 82550-TC; 82962-TC; 83605-TC; 83735-TC; 83880; 83970; 84100-TC; 84155; 84165; 84484-TC; 85025-TC; 85610-TC; 85730-TC; 87040-TC; 87086-TC; 92526; 92611-TC; 93307-TC; A4223; G0378; J1650; J1815; J2470; J2543; J3370; J3371; J7050; J7060; J7070

== ENCOUNTER 2025-03-20 10:11 | Inpatient (IN) | payer MEDICARE, OTHER ==
[2025-03-20] VITALS (13 sets, daily range): BP systolic 129–153; BP diastolic 66–88; TEMP 97.7–97.9; O2SAT 95–100
[~2025-03-20] VITALS: Ht 177.8 cm; Wt 72.2 kg
[~2025-03-20 10:11] MED LIST changes: -NYST60PO TP
[2025-03-20] MEDS ORDERED: ASCO-352 PO (10:35)
[2025-03-20] MEDS ORDERED: PANT40TA2 PO (10:35)
[2025-03-20] MEDS ORDERED: INSU100V7 SQ (10:35)
[2025-03-20] MEDS ORDERED: ONDANSETRON HCL/PF 4 MG/2 ML VIAL ONE (10:40)
[2025-03-20] MEDS: IV NS 0.9% 1,000 ML BAG IV ONE (10:44)
[2025-03-20] MEDS: ONDANSETRON HCL/PF 4 MG/2 ML VIAL IVP ONE (10:44)
[2025-03-20] MEDS ORDERED: NYST60PO TP (11:01)
[2025-03-20 11:09] LABS: FRACTIONATED INSPIRED OXYGEN-V 21.0 %; SITE, VBG VBG - N/A; VBG BASE EXCESS -14.1 mmol/L (-2.0-3.0); VBG HCO3 13.7 mmol/L (22.0-29.0); VBG MetHb 0.3 % (0.5-1.5); VBG OXYGEN SATURATION 51.0 % (60.0-85.0); VBG PCO2 38.4 mmHg (38.0-54.0); VBG PH 7.170 (7.320-7.430); VBG PO2 28.4 mmHg (23.0-48.0); VBG TOTAL HEMOGLOBIN 17.8 G/dL (13.5-17.5)
[2025-03-20 11:09] LABS: PLATELET COUNT (AUTO) 516 K/uL (150-450); RED BLOOD CELL COUNT(AUTO) 5.10 MIL/uL (4.5-6.0); RED CELL DISTRIBUTION WIDTH 13.9 % (11.5-15.0); WHITE BLOOD COUNT (AUTO) 26.8 K/uL (4.3-11.0)
[2025-03-20] MEDS: PIPERACILLIN /TAZOBACTAM 3.375 G in IV D5W 50 ML IV ONE (11:15)
[2025-03-20 11:19] LABS: CALCIUM, SERUM 9.7 mg/dL (8.5-10.1); CREATININE 1.6 mg/dL (0.6-1.3); SODIUM SERUM 141.0 mmol/L (136-145); UREA NITROGEN, BLOOD 38.0 mg/dL (7-18)
[2025-03-20] MEDS: IV LR 1000 ML 1,000 ML IV ONE (11:20)
[2025-03-20 11:23] LABS: ASPARTATE AMINOTRANSFERASE 14.0 U/L (15-37); TOTAL PROTEIN, SERUM 8.8 g/dL (6.4-8.2)
[2025-03-20 11:48] LABS: LACTIC ACID 4.6 mmol/L (0.4-2.0)
[2025-03-20] MEDS ORDERED: IV LR 500 ML IV PRN (12:00)
[2025-03-20] MEDS ORDERED: ONDANSETRON HCL/PF 4 MG/2 ML VIAL IVP PRN (12:00)
[2025-03-20] MEDS ORDERED: Z GUARD REMEDY 4 OZ OINT TP PRN (12:00)
[2025-03-20] MEDS ORDERED: ACETAMINOPHEN 325 MG TABLET PO PRN (12:00)
[2025-03-20 12:16] LABS: APPEARANCE,URINE CLEAR (CLEAR); BLOOD, URINE 2+ Ery/uL (NEGATIVE); LEUKOCYTE ESTERASE ,URINE NEGATIVE (NEGATIVE); NITRITE, URINE NEGATIVE (NEGATIVE); UGLUCOSE 3+ mg/dL (NEGATIVE)
[2025-03-20 12:20] LABS: CALCIUM, SERUM 8.0 mg/dL (8.5-10.1); CREATININE 1.7 mg/dL (0.6-1.3); SODIUM SERUM 141.0 mmol/L (136-145); UREA NITROGEN, BLOOD 33.0 mg/dL (7-18)
[2025-03-20] MEDS: IV PREMIX NS +20MEQ KCL 1 L IV PRN (12:25)
[2025-03-20] MEDS: INSULIN REGULAR, HUMAN 100 UNITS in IV NS 0.9% 100 ML IV PRN (12:25)
[2025-03-20 12:30] LABS: PHOSPHORUS 4.1 mg/dL (2.5-4.9)
[2025-03-20 12:54] LABS: ADD URINE CULTURE NO; SQUAMOUS EPITHELIAL CELL,UR 0-2 /HPF (None Seen)
[2025-03-20] MEDS: INSULIN REGULAR, HUMAN 100 UNIT in IV NS 0.9% 99 ML IV PRN (16:14)
[2025-03-20] MEDS: BLOOD SUGAR DIAGNOSTIC 1 EACH STRIP IN SCH ×2 (16:15→22:47)
[2025-03-20] MEDS: ENOXAPARIN SODIUM 40 MG/0.4 ML DISP.SYRIN SQ SCH (16:18)
[2025-03-20] MEDS: PIPERACILLIN /TAZOBACTAM 3.375 G in IV D5W 50 ML IV SCH (16:18)
[2025-03-20 17:02] LABS: CALCIUM, SERUM 8.7 mg/dL (8.5-10.1); CREATININE 1.3 mg/dL (0.6-1.3); SODIUM SERUM 144.0 mmol/L (136-145); UREA NITROGEN, BLOOD 32.0 mg/dL (7-18)
[2025-03-20 17:05] LABS: PHOSPHORUS 2.0 mg/dL (2.5-4.9)
[2025-03-20] MEDS: IV LR 1000 ML 1,000 ML IV PRN (18:05)
[2025-03-20] MEDS: IV D5/0.45 NACL 1,000 ML IV PRN (18:20)
[2025-03-20 20:31] LABS: CALCIUM, SERUM 8.8 mg/dL (8.5-10.1); CREATININE 1.2 mg/dL (0.6-1.3); SODIUM SERUM 148.0 mmol/L (136-145); UREA NITROGEN, BLOOD 31.0 mg/dL (7-18)
[2025-03-20 20:35] LABS: PHOSPHORUS 1.5 mg/dL (2.5-4.9)
[2025-03-20] MEDS ORDERED: DEXTROSE 50%-WATER 50 ML DISP.SYRIN IV PRN (21:00)
[2025-03-20] MEDS ORDERED: K PHOS NEUTRAL 250 MG TABLET PO ONE (21:00)
[2025-03-20] MEDS: NEUTRA PHOS 1 POWD.PACKET PO ONE (21:53)
[2025-03-20] MEDS ORDERED: INSULIN REGULAR, HUMAN 100 UNIT/ML 10 ML VIAL ONE (22:07)
[2025-03-20] MEDS ORDERED: INSULIN GLARGINE, 100 UNIT/ML CARTRIDGE SQ ONE (22:08)
[2025-03-20] MEDS: INSULIN GLARGINE, 100 UNIT/ML CARTRIDGE SQ SCH (22:55)
[2025-03-20] MEDS: *INSULIN REGULAR(HUMULIN R)HUM 100 UNIT/ML VIAL SQ PRN (22:55)
[2025-03-20] MEDS: BISACODYL SUPP (10 MG) 10 MG/SUPP.RECT SUPP.RECT RC ONE ×2 (23:09→23:14)
[2025-03-21] VITALS (18 sets, daily range): BP systolic 106–151; BP diastolic 56–129; TEMP 97.7–98.6; O2SAT 96–100
[2025-03-21 04:31] LABS: PLATELET COUNT (AUTO) 423 K/uL (150-450); RED BLOOD CELL COUNT(AUTO) 4.29 MIL/uL (4.5-6.0); RED CELL DISTRIBUTION WIDTH 14.0 % (11.5-15.0); WHITE BLOOD COUNT (AUTO) 17.6 K/uL (4.3-11.0)
[2025-03-21 04:40] LABS: CALCIUM, SERUM 8.9 mg/dL (8.5-10.1); CREATININE 1.2 mg/dL (0.6-1.3); PHOSPHORUS 2.8 mg/dL (2.5-4.9); SODIUM SERUM 146 mmol/L (136-145); UREA NITROGEN, BLOOD 27 mg/dL (7-18)
[2025-03-21 04:54] LABS: LDL 95 mg/dL (0-99)
[2025-03-21] MEDS: INSULIN REGULAR, HUMAN 100 UNIT/ML 3 ML VIAL SQ PRN (07:49)
[2025-03-21] MEDS: PANTOPRAZOLE 40 MG VIAL IV SCH (08:32)
[2025-03-21 10:03] LABS: ABG BASE EXCESS -5.5 mmol/L (-2.0-3.0); ABG OXYGEN SATURATION 39.7 % (94.0-98.0); ABG PCO2 46.7 mmHg (35.0-48.0); ABG PH 7.278 (7.350-7.450); ABG PO2 23.1 mmHg (83.0-108.0); ABG TOTAL HEMOGLOBIN 13.6 G/dL (13.5-17.5); FRACTIONATED INSPIRED OXYGEN 21.0 %; SITE, ABG VBG - N/A
[2025-03-21] MEDS: PIPERACILLIN /TAZOBACTAM 3.375 G in IV D5W 100 ML IV SCH (14:11)
[2025-03-22 08:00] VITALS: BP 140/73; TEMP 98.1; O2SAT 100
[2025-03-22] MEDS: PANTOPRAZOLE 40 MG TABLET.DR PO SCH (08:07)
[2025-03-22] MEDS ORDERED: INSU100V7 SQ (11:28)
[2025-03-22] MEDS ORDERED: AMOX-427 PO (11:28)
[2025-03-22 16:00] VITALS: BP 121/68; TEMP 98.2; O2SAT 98
[2025-03-23 08:00] VITALS: BP 154/80; TEMP 97.6; O2SAT 99
[2025-03-23] MEDS ORDERED: INSULIN GLARGINE, 100 UNIT/ML CARTRIDGE SQ SCH (22:00)
== END 2025-03-23 12:00 | DRG 637 ==
LOC: ER 10:14 → ICU 14:09 → MED 03-21 13:03
PROVIDERS: ADMIT Nurse Practitioner Acute Care; ATTEND Nurse Practitioner Acute Care
PROC: 05HC33Z Insertion of Infusion Device into Left Basilic Vein, Percutaneous Approach (ICD-10-PCS; principal; 2025-03-20)
DX: E11.10 Type 2 diabetes mellitus with ketoacidosis without coma (principal); G93.41 Metabolic encephalopathy; N17.9 Acute kidney failure, unspecified; F03.911 Unspecified dementia, unspecified severity, with agitation; Z20.822 Contact with and (suspected) exposure to COVID-19; E11.51 Type 2 diabetes mellitus with diabetic peripheral angiopathy without gangrene; Z86.73 Personal history of transient ischemic attack (TIA), and cerebral infarction without residual deficits; I25.10 Atherosclerotic heart disease of native coronary artery without angina pectoris; G40.909 Epilepsy, unspecified, not intractable, without status epilepticus; I11.0 Hypertensive heart disease with heart failure; I50.9 Heart failure, unspecified; K74.60 Unspecified cirrhosis of liver; Z98.61 Coronary angioplasty status; Z95.1 Presence of aortocoronary bypass graft; Z98.890 Other specified postprocedural states; Z79.4 Long term (current) use of insulin; Z79.02 Long term (current) use of antithrombotics/antiplatelets; Z79.82 Long term (current) use of aspirin; Z79.899 Other long term (current) drug therapy; E78.5 Hyperlipidemia, unspecified; D75.839 Thrombocytosis, unspecified; D72.829 Elevated white blood cell count, unspecified; E86.9 Volume depletion, unspecified; F20.9 Schizophrenia, unspecified; M81.0 Age-related osteoporosis without current pathological fracture; Z96.643 Presence of artificial hip joint, bilateral; K29.70 Gastritis, unspecified, without bleeding
CPT/HCPCS: 36415; 71045-TC; 80048-TC; 80061-TC; 80076-TC; 81001; 82010-TC; 82803-TC; 82962-TC; 83605-TC; 83690-TC; 83735-TC; 84100-TC; 84443-TC; 85025-TC; 87040-TC; 87086-TC; 94799-TC; A4223; G0378; J1650; J1815; J2405; J2470; J2543; J3490; J7030; J7050; J7060; J7120

== ENCOUNTER 2025-05-30 15:35 | Inpatient (IN) | payer MEDICARE, OTHER ==
[~2025-05-30] VITALS: Ht 182.9 cm; Wt 69.4 kg
[2025-05-30] VITALS (9 sets, daily range): BP systolic 114–151; BP diastolic 55–96; TEMP 98.1; O2SAT 93–100
[~2025-05-30 15:35] MED LIST changes: +ASCO-352 PO; -DIPH25TA27 PO; -MAG30ORA PO; -MAGN400O6 PO; -MULT-594 PO; -NA P133E RC; +NYST60PO TP; -OSEL75CA GT; +PANT40TA2 PO
[2025-05-30] MEDS ORDERED: ACET325T53 PO (16:13)
[2025-05-30] MEDS ORDERED: INSU100V39 SQ ×2 (16:13)
[2025-05-30] MEDS ORDERED: ATOR20TA PO (16:13)
[2025-05-30] MEDS ORDERED: INSU100I30 SQ (16:13)
[2025-05-30] MEDS ORDERED: NUT.237L28 PO (16:13)
[2025-05-30] MEDS ORDERED: ZINC50TA69 PO (16:13)
[2025-05-30] MEDS ORDERED: ASPI-1420 PO (16:13)
[2025-05-30 16:21] LABS: PLATELET COUNT (AUTO) 667 K/uL (150-450); RED BLOOD CELL COUNT(AUTO) 4.19 MIL/uL (4.5-6.0); RED CELL DISTRIBUTION WIDTH 16.3 % (11.5-15.0); WHITE BLOOD COUNT (AUTO) 19.4 K/uL (4.3-11.0)
[2025-05-30 16:25] LABS: FRACTIONATED INSPIRED OXYGEN-V 21.0 %; SITE, VBG VBG - N/A; VBG BASE EXCESS -21.9 mmol/L (-2.0-3.0); VBG HCO3 5.4 mmol/L (22.0-29.0); VBG MetHb 0.6 % (0.5-1.5); VBG OXYGEN SATURATION 83.1 % (60.0-85.0); VBG PCO2 17.2 mmHg (38.0-54.0); VBG PH 7.118 (7.320-7.430); VBG PO2 56.7 mmHg (23.0-48.0); VBG TOTAL HEMOGLOBIN 13.6 G/dL (13.5-17.5)
[2025-05-30 16:28] LABS: ACETONE, SERUM MODERATE (NEGATIVE)
[2025-05-30] MEDS: IV NS 0.9% 1,000 ML BAG IV ONE ×2 (16:28→17:19)
[2025-05-30 16:35] LABS: ASPARTATE AMINOTRANSFERASE 14 U/L (15-37); CALCIUM, SERUM 9.8 mg/dL (8.5-10.1); CREATININE 2.1 mg/dL (0.6-1.3); SODIUM SERUM 136 mmol/L (136-145); TOTAL PROTEIN, SERUM 8.0 g/dL (6.4-8.2); UREA NITROGEN, BLOOD 31 mg/dL (7-18)
[2025-05-30 16:37] LABS: LYMPHOCYTES % (MANUAL) 4 % (16-48); MONOCYTES % (MANUAL) 3 % (0-11.0); NEUTROPHILS % (MANUAL) 93 (42-76)
[2025-05-30 16:38] LABS: PLATELET ESTIMATE INCREASED
[2025-05-30 16:41] LABS: NT-PRO BNP 2710 pg/mL (0-125)
[2025-05-30] MEDS: ALBUTEROL FS 2.5 MG/3 ML VIAL.NEB NEB ONE (17:00)
[2025-05-30 17:01] LABS: LACTIC ACID 7.5 mmol/L (0.4-2.0)
[2025-05-30] MEDS ORDERED: SODIUM BICARBONATE SYR 50 MEQ/50 ML DISP.SYRIN ONE (17:06)
[2025-05-30] MEDS: INSULIN REGULAR, HUMAN 100 UNITS in IV NS 0.9% 100 ML IV PRN (17:18)
[2025-05-30] MEDS: PIPERACILLIN /TAZOBACTAM 3.375 G in IV D5W 50 ML IV ONE (17:19)
[2025-05-30] MEDS: SODIUM BICARBONATE SYR 50 MEQ/50 ML DISP.SYRIN IV ONE (17:20)
[2025-05-30] MEDS ORDERED: SODIUM POLYSTYRENE SULFONATE 15 G/60 ML BOTTLE ONE (17:22)
[2025-05-30] MEDS ORDERED: ALBUTEROL FS 2.5 MG/3 ML VIAL.NEB ONE (17:30)
[2025-05-30] MEDS: VANCOMYCIN 1 GM in IV D5W 250 ML IV ONE (17:30)
[2025-05-30] MEDS: SODIUM POLYSTYRENE SULFONATE 15 G/60 ML BOTTLE RC ONE (18:00)
[2025-05-30 18:29] LABS: INR 1.0 (0.91-1.10)
[2025-05-30] MEDS ORDERED: IV NS 0.9% 1,000 ML IV PRN (20:00)
[2025-05-30] MEDS ORDERED: DOSING PER PHARMACY-VANCOMYCIN IV XX PRN (20:00)
[2025-05-30] MEDS ORDERED: ACETAMINOPHEN 325 MG TABLET PO PRN ×2 (20:00)
[2025-05-30] MEDS: BLOOD SUGAR DIAGNOSTIC 1 EACH STRIP IN SCH (20:00)
[2025-05-30] MEDS ORDERED: ONDANSETRON HCL/PF 4 MG/2 ML VIAL IVP PRN (20:00)
[2025-05-30] MEDS ORDERED: MAGNESIUM HYDROXIDE 30 ML UDC PO PRN (20:00)
[2025-05-30] MEDS: CEFEPIME 1 GM in IV D5W 50 ML IV SCH (20:00)
[2025-05-30] MEDS ORDERED: Z GUARD REMEDY 4 OZ OINT TP PRN (20:00)
[2025-05-30] MEDS ORDERED: MAG HYDROX/AL HYDROX/SIMETH 30 ML UDC PO PRN (20:00)
[2025-05-30] MEDS ORDERED: ACETAMINOPHEN ES 500 MG TABLET PO PRN (20:00)
[2025-05-30] MEDS: Sodium Bicarbonate 100 MEQ in IV NS 0.9% 1,000 ML IV PRN (20:40)
[2025-05-30] MEDS: SODIUM BICARBONATE SYR 50 MEQ/50 ML DISP.SYRIN ONE (20:40)
[2025-05-30] MEDS: INSULIN REGULAR, HUMAN 100 UNIT in IV NS 0.9% 99 ML IV PRN (20:57)
[2025-05-30] MEDS ORDERED: CEFEPIME 1 GM VIAL ONE (21:11)
[2025-05-31] VITALS (55 sets, daily range): BP systolic 97–142; BP diastolic 39–123; TEMP 96.6–99.3; O2SAT 81–100
[2025-05-31] MEDS: Sodium Bicarbonate 100 MEQ in IV D5/0.45 NACL 1,000 ML IV PRN (01:10)
[2025-05-31] MEDS: SODIUM BICARBONATE SYR 50 MEQ/50 ML DISP.SYRIN ONE (01:15)
[2025-05-31 02:52] LABS: PLATELET COUNT (AUTO) 393 K/uL (150-450); RED BLOOD CELL COUNT(AUTO) 3.29 MIL/uL (4.5-6.0); RED CELL DISTRIBUTION WIDTH 13.8 % (11.5-15.0); WHITE BLOOD COUNT (AUTO) 12.9 K/uL (4.3-11.0)
[2025-05-31 05:36] LABS: PLATELET COUNT (AUTO) 518 K/uL (150-450); RED BLOOD CELL COUNT(AUTO) 4.01 MIL/uL (4.5-6.0); RED CELL DISTRIBUTION WIDTH 14.3 % (11.5-15.0); WHITE BLOOD COUNT (AUTO) 17.1 K/uL (4.3-11.0)
[2025-05-31 05:46] LABS: LACTIC ACID 1.9 mmol/L (0.4-2.0)
[2025-05-31 05:52] LABS: CALCIUM, SERUM 8.9 mg/dL (8.5-10.1); CREATININE 1.2 mg/dL (0.6-1.3); SODIUM SERUM 150.0 mmol/L (136-145); UREA NITROGEN, BLOOD 24.0 mg/dL (7-18)
[2025-05-31 05:58] LABS: PHOSPHORUS 1.8 mg/dL (2.5-4.9)
[2025-05-31] MEDS: CEFEPIME 1 GM in IV D5W 50 ML IV SCH (08:16)
[2025-05-31] MEDS: VANCOMYCIN 750 MG in IV D5W 250 ML IV SCH (08:52)
[2025-05-31] MEDS: Sodium Bicarbonate 100 MEQ in IV D5/0.45 NACL 1,000 ML IV SCH (09:10)
[2025-05-31] MEDS: GLUCERNA SHAKE 237 ML CAN PO SCH (09:18)
[2025-05-31] MEDS: PANTOPRAZOLE 40 MG VIAL IV SCH (09:18)
[2025-05-31] MEDS: ASCORBIC ACID 500 MG TABLET PO SCH (09:19)
[2025-05-31] MEDS: ZINC SULFATE 220 MG CAPSULE PO SCH (09:19)
[2025-05-31] MEDS: ACETAMINOPHEN 325 MG TABLET PO SCH (09:19)
[2025-05-31] MEDS: MULTIVIT W/MINERALS 1 TAB TABLET PO SCH (09:19)
[2025-05-31] MEDS: ASPIRIN EC 81 MG TABLET.DR PO SCH (09:19)
[2025-05-31] MEDS: POTASSIUM CHLORIDE 20 MEQ TAB.PRT.SR PO SCH (11:14)
[2025-05-31] MEDS: IV PREMIX D5 1/2NS + KCL 1,000 ML IV ONE (12:37)
[2025-05-31 13:01] LABS: CALCIUM, SERUM 8.6 mg/dL (8.5-10.1); CREATININE 1.4 mg/dL (0.6-1.3); SODIUM SERUM 149.0 mmol/L (136-145); UREA NITROGEN, BLOOD 23.0 mg/dL (7-18)
[2025-05-31] MEDS: ENOXAPARIN SODIUM 80 MG/0.8 ML DISP.SYRIN SQ SCH (14:05)
[2025-05-31] MEDS: K PHOS NEUTRAL 250 MG TABLET PO ONE (17:16)
[2025-05-31 19:31] LABS: CALCIUM, SERUM 7.8 mg/dL (8.5-10.1); CREATININE 1.0 mg/dL (0.6-1.3); SODIUM SERUM 146.0 mmol/L (136-145); UREA NITROGEN, BLOOD 24.0 mg/dL (7-18)
[2025-05-31] MEDS: Potassium Chloride 20 MEQ in IV D5/0.45 NACL 1,000 ML IV SCH (20:22)
[2025-05-31] MEDS ORDERED: DEXTROSE 50%-WATER 50 ML DISP.SYRIN IV PRN (21:00)
[2025-05-31] MEDS: BLOOD SUGAR DIAGNOSTIC 1 EACH STRIP IN SCH (21:40)
[2025-05-31] MEDS: INSULIN REGULAR, HUMAN 100 UNIT/ML 3 ML VIAL SQ PRN (21:42)
[2025-05-31] MEDS: INSULIN GLARGINE, 100 UNIT/ML CARTRIDGE SQ SCH (21:43)
[2025-05-31] MEDS ORDERED: IV NS 0.9% 250 ML IV PRN (22:00)
[2025-06-01] VITALS (34 sets, daily range): BP systolic 95–141; BP diastolic 41–68; TEMP 97–98.4; O2SAT 92–100
[2025-06-01 07:07] LABS: PLATELET COUNT (AUTO) 317 K/uL (150-450); RED BLOOD CELL COUNT(AUTO) 3.17 MIL/uL (4.5-6.0); RED CELL DISTRIBUTION WIDTH 14.9 % (11.5-15.0); WHITE BLOOD COUNT (AUTO) 6.3 K/uL (4.3-11.0)
[2025-06-01 07:24] LABS: PHOSPHORUS 1.4 mg/dL (2.5-4.9)
[2025-06-01 07:32] LABS: CALCIUM, SERUM 8.0 mg/dL (8.5-10.1); CREATININE 1.0 mg/dL (0.6-1.3); SODIUM SERUM 143.0 mmol/L (136-145); UREA NITROGEN, BLOOD 17.0 mg/dL (7-18)
[2025-06-01] MEDS ORDERED: DEXTROSE 50%-WATER 50 ML DISP.SYRIN IV PRN (08:00)
[2025-06-01] MEDS ORDERED: CLOTRIMAZOLE 1% 15 GM TUBE TP SCH (09:00)
[2025-06-01] MEDS: CLOTRIMAZOLE 1% 15 GM TUBE TP SCH (10:59)
[2025-06-01] MEDS: BLOOD SUGAR DIAGNOSTIC 1 EACH STRIP VI SCH (12:14)
[2025-06-01] MEDS: INSULIN REGULAR, HUMAN 100 UNIT/ML 3 ML VIAL SQ PRN (12:20)
[2025-06-01] MEDS: K PHOS NEUTRAL 250 MG TABLET PO ONE (16:57)
[2025-06-01 17:37] LABS: APPEARANCE,URINE CLEAR (CLEAR); BLOOD, URINE NEGATIVE Ery/uL (NEGATIVE); LEUKOCYTE ESTERASE ,URINE 2+ (NEGATIVE); NITRITE, URINE NEGATIVE (NEGATIVE); UGLUCOSE 2+ mg/dL (NEGATIVE)
[2025-06-01 17:42] LABS: CREATININE, URINE 81.0 MG/DL (30.0-125.0); URINE SODIUM, RANDOM 76.0 mmol/l (40-220); URINE TOTAL PROTEIN 28.4 mg/dL (0-11.9)
[2025-06-01 17:47] LABS: ADD URINE CULTURE YES; SQUAMOUS EPITHELIAL CELL,UR 0-2 /HPF (None Seen); YEAST,URINE Many /HPF (None Seen)
[2025-06-01 18:54] LABS: EOSINOPHIL,URINE many
[2025-06-01] MEDS: *INSULIN REGULAR(HUMULIN R)HUM 100 UNIT/ML VIAL SQ PRN (22:13)
[2025-06-01] MEDS ORDERED: IV NS 0.9% 250 ML IV PRN (22:30)
[2025-06-02] VITALS (14 sets, daily range): BP systolic 117–140; BP diastolic 53–73; TEMP 97.5–98.3; O2SAT 97–100
[2025-06-02 05:02] LABS: PLATELET COUNT (AUTO) 363 K/uL (150-450); RED BLOOD CELL COUNT(AUTO) 4.20 MIL/uL (4.5-6.0); RED CELL DISTRIBUTION WIDTH 14.8 % (11.5-15.0); WHITE BLOOD COUNT (AUTO) 8.0 K/uL (4.3-11.0)
[2025-06-02 06:06] LABS: ASPARTATE AMINOTRANSFERASE 38.0 U/L (15-37); CALCIUM, SERUM 8.4 mg/dL (8.5-10.1); CREATININE 1.0 mg/dL (0.6-1.3); SODIUM SERUM 144.0 mmol/L (136-145); TOTAL PROTEIN, SERUM 6.1 g/dL (6.4-8.2); UREA NITROGEN, BLOOD 16.0 mg/dL (7-18)
[2025-06-02 07:09] LABS: PHOSPHORUS 1.9 mg/dL (2.5-4.9)
[2025-06-02] MEDS: K PHOS NEUTRAL 250 MG TABLET PO ONE (15:47)
[2025-06-02 23:49] LABS: CALCIUM, SERUM 8.3 mg/dL (8.5-10.1); CREATININE 0.9 mg/dL (0.6-1.3); SODIUM SERUM 141.0 mmol/L (136-145); UREA NITROGEN, BLOOD 16.0 mg/dL (7-18)
[2025-06-03] VITALS: BP 130/71; TEMP 97.5; O2SAT 98
[2025-06-03 04:00] VITALS: BP 128/75; TEMP 97.9; O2SAT 98
[2025-06-03 07:58] LABS: ASPARTATE AMINOTRANSFERASE 31.0 U/L (15-37); CALCIUM, SERUM 8.2 mg/dL (8.5-10.1); CREATININE 0.8 mg/dL (0.6-1.3); PHOSPHORUS 2.5 mg/dL (2.5-4.9); PLATELET COUNT (AUTO) 303 K/uL (150-450); RED BLOOD CELL COUNT(AUTO) 4.25 MIL/uL (4.5-6.0); RED CELL DISTRIBUTION WIDTH 14.6 % (11.5-15.0); SODIUM SERUM 142.0 mmol/L (136-145); TOTAL PROTEIN, SERUM 5.9 g/dL (6.4-8.2); UREA NITROGEN, BLOOD 16.0 mg/dL (7-18); WHITE BLOOD COUNT (AUTO) 6.2 K/uL (4.3-11.0)
[2025-06-03 08:00] VITALS: BP 135/57; TEMP 97.5; O2SAT 98
[2025-06-03 12:00] VITALS: BP 134/70; TEMP 97.5; O2SAT 98
== END 2025-06-03 13:15 | DRG 871 ==
LOC: ER 16:16 → TELE 18:08 → ICU 18:29 → TELE1 06-02 11:21
PROVIDERS: ADMIT Nurse Practitioner Acute Care
DX: A41.9 Sepsis, unspecified organism (principal); E11.10 Type 2 diabetes mellitus with ketoacidosis without coma; G92.8 Other toxic encephalopathy; I21.A1 Myocardial infarction type 2; N17.0 Acute kidney failure with tubular necrosis; I50.32 Chronic diastolic (congestive) heart failure; N39.0 Urinary tract infection, site not specified; E87.0 Hyperosmolality and hypernatremia; E86.9 Volume depletion, unspecified; I11.0 Hypertensive heart disease with heart failure; Z66 Do not resuscitate; Z20.822 Contact with and (suspected) exposure to COVID-19; Z86.73 Personal history of transient ischemic attack (TIA), and cerebral infarction without residual deficits; F03.90 Unspecified dementia, unspecified severity, without behavioral disturbance, psychotic disturbance, mood disturbance, and anxiety; G40.909 Epilepsy, unspecified, not intractable, without status epilepticus; I25.10 Atherosclerotic heart disease of native coronary artery without angina pectoris; M89.8X9 Other specified disorders of bone, unspecified site; Z95.1 Presence of aortocoronary bypass graft; M81.0 Age-related osteoporosis without current pathological fracture; Z98.890 Other specified postprocedural states; Z79.4 Long term (current) use of insulin; Z79.82 Long term (current) use of aspirin; Z79.899 Other long term (current) drug therapy; Z87.440 Personal history of urinary (tract) infections; B96.89 Other specified bacterial agents as the cause of diseases classified elsewhere; R13.10 Dysphagia, unspecified; E78.5 Hyperlipidemia, unspecified; E86.0 Dehydration; D64.9 Anemia, unspecified; E83.39 Other disorders of phosphorus metabolism; E83.42 Hypomagnesemia; Z91.119 Patient's noncompliance with dietary regimen due to unspecified reason; I25.2 Old myocardial infarction; Z78.1 Physical restraint status; F29 Unspecified psychosis not due to a substance or known physiological condition; E87.5 Hyperkalemia; E87.6 Hypokalemia; Z95.5 Presence of coronary angioplasty implant and graft; E11.65 Type 2 diabetes mellitus with hyperglycemia
CPT/HCPCS: 36415; 70450-TC; 71045-TC; 80048-TC; 80053-TC; 80076-TC; 80202-TC; 81001; 82010-TC; 82570-TC; 82803-TC; 82962-TC; 83605-TC; 83690-TC; 83735-TC; 83880; 84100-TC; 84300-TC; 84484-TC; 85025-TC; 85027-TC; 85730-TC; 87040-TC; 87081-TC; 87086-TC; 92526; 92611; 93307-TC; 94799-TC; A4223; A6213; G0378; J0692; J1650; J1815; J2470; J2543; J3373; J3374; J3480; J3490; J7030; J7050; J7060

== ENCOUNTER 2025-06-12 15:35 | Emergency (ER) | payer MEDICARE, OTHER ==
[~2025-06-12] VITALS: Ht 182.9 cm; Wt 75.3 kg
[2025-06-12 15:35] VITALS: TEMP 97.9
[~2025-06-12 15:35] MED LIST changes: +ACET325T53 PO; -AMOX-427 PO; -ASPI-1169 PO; +ASPI-1420 PO; +ATOR20TA PO; -ATOR40TA PO; -CLOP75TA15 PO; +INSU100I30 SQ; -INSU100V3 SQ; +INSU100V39 SQ; -INSU100V7 SQ; -METO25TA20 PO; +NUT.237L28 PO; -PANT40TA2 PO; +ZINC50TA69 PO
[2025-06-12 16:15] VITALS: BP 133/78; O2SAT 97
[2025-06-12 16:26] LABS: PLATELET COUNT (AUTO) 433 K/uL (150-450); RED BLOOD CELL COUNT(AUTO) 4.69 MIL/uL (4.5-6.0); RED CELL DISTRIBUTION WIDTH 14.9 % (11.5-15.0); WHITE BLOOD COUNT (AUTO) 7.7 K/uL (4.3-11.0)
[2025-06-12 16:38] LABS: ACETONE, SERUM NEGATIVE (NEGATIVE)
[2025-06-12 16:39] LABS: CALCIUM, SERUM 9.1 mg/dL (8.5-10.1); CREATININE 0.9 mg/dL (0.6-1.3); SODIUM SERUM 135 mmol/L (136-145); UREA NITROGEN, BLOOD 21 mg/dL (7-18)
[2025-06-12 16:46] LABS: ASPARTATE AMINOTRANSFERASE 33 U/L (15-37); TOTAL PROTEIN, SERUM 7.1 g/dL (6.4-8.2)
[2025-06-12] MEDS: IV NS 0.9% 1,000 ML BAG IV ONE (17:22)
[2025-06-12 17:52] LABS: APPEARANCE,URINE CLEAR (CLEAR); BLOOD, URINE NEGATIVE Ery/uL (NEGATIVE); LEUKOCYTE ESTERASE ,URINE TRACE (NEGATIVE); NITRITE, URINE NEGATIVE (NEGATIVE); UGLUCOSE 3+ mg/dL (NEGATIVE)
[2025-06-12 18:08] LABS: ADD URINE CULTURE YES
[2025-06-12 18:17] LABS: YEAST,URINE Few /HPF (None Seen)
== END 2025-06-12 18:33 ==
LOC: ER 16:04
DX: E11.65 Type 2 diabetes mellitus with hyperglycemia (principal); I25.10 Atherosclerotic heart disease of native coronary artery without angina pectoris; F03.90 Unspecified dementia, unspecified severity, without behavioral disturbance, psychotic disturbance, mood disturbance, and anxiety; I13.10 Hypertensive heart and chronic kidney disease without heart failure, with stage 1 through stage 4 chronic kidney disease, or unspecified chronic kidney disease; E11.649 Type 2 diabetes mellitus with hypoglycemia without coma; E11.22 Type 2 diabetes mellitus with diabetic chronic kidney disease; E78.5 Hyperlipidemia, unspecified; F20.9 Schizophrenia, unspecified; N18.9 Chronic kidney disease, unspecified; Z79.4 Long term (current) use of insulin; Z98.61 Coronary angioplasty status; Z87.19 Personal history of other diseases of the digestive system; Z79.899 Other long term (current) drug therapy; Z79.82 Long term (current) use of aspirin
CPT/HCPCS: 99283; 85025; 87086; 82010; 83690; 81001; 36415; 80053; 82962; J7040

== ENCOUNTER 2025-06-28 15:14 | Inpatient (IN) | payer MEDICARE, OTHER ==
[~2025-06-28] VITALS: Ht 182.9 cm; Wt 58.2 kg
[~2025-06-28 15:14] MED LIST changes: +IVER3TAB2 PO; +PERM60CR6 TP
[2025-06-28 15:50] LABS: PLATELET COUNT (AUTO) 252 K/uL (150-450); RED BLOOD CELL COUNT(AUTO) 4.74 MIL/uL (4.5-6.0); RED CELL DISTRIBUTION WIDTH 15.6 % (11.5-15.0); WHITE BLOOD COUNT (AUTO) 16.4 K/uL (4.3-11.0)
[2025-06-28 16:00] LABS: INR 1.06 (0.91-1.10)
[2025-06-28 16:01] LABS: CALCIUM, SERUM 8.9 mg/dL (8.5-10.1); CREATININE 2.2 mg/dL (0.6-1.3); SODIUM SERUM 142 mmol/L (136-145); UREA NITROGEN, BLOOD 41 mg/dL (7-18)
[2025-06-28 16:08] LABS: ASPARTATE AMINOTRANSFERASE 37 U/L (15-37); TOTAL PROTEIN, SERUM 7.5 g/dL (6.4-8.2)
[2025-06-28] MEDS ORDERED: HEPARIN SODIUM, PORCINE 5000 UNITS/1 ML VIAL ONE (16:09)
[2025-06-28] MEDS: HEPARIN SODIUM, PORCINE 5000 UNITS/1 ML VIAL IV ONE (16:13)
[2025-06-28] MEDS ORDERED: HEPARIN INFUSION/D5W 500 ML IV ONE (16:17)
[2025-06-28] MEDS: HEPARIN INFUSION/D5W 500 ML IV ONE (16:20)
[2025-06-28] MEDS: IV NS 0.9% 1,000 ML BAG IV ONE (16:50)
[2025-06-28] MEDS ORDERED: GLUCOSE PO (16:55)
[2025-06-28] MEDS ORDERED: INSU100V3 SQ (16:55)
[2025-06-28] MEDS ORDERED: INSULIN GLARGINE SQ (16:55)
[2025-06-28] MEDS ORDERED: MEGE400O5 PO (16:55)
[2025-06-28] MEDS ORDERED: MAGN400O6 PO (16:55)
[2025-06-28] MEDS ORDERED: AMIN30LI66 PO (16:55)
[2025-06-28] MEDS ORDERED: CLOT15CR5 TP (16:55)
[2025-06-28] MEDS ORDERED: ACETAMINOPHEN ES 500 MG TABLET PO PRN (21:30)
[2025-06-28] MEDS ORDERED: *INSULIN REGULAR(HUMULIN R)HUM 100 UNIT/ML VIAL SQ PRN (21:30)
[2025-06-28] MEDS ORDERED: ONDANSETRON HCL/PF 4 MG/2 ML VIAL IVP PRN (21:30)
[2025-06-28] MEDS ORDERED: PERMETHRIN 5% CRM 60 GM TUBE TP SCH (21:30)
[2025-06-28] MEDS ORDERED: DEXTROSE 50%-WATER 50 ML DISP.SYRIN IV PRN (21:30)
[2025-06-28] MEDS ORDERED: MAG HYDROX/AL HYDROX/SIMETH 30 ML UDC PO PRN (21:30)
[2025-06-28] MEDS ORDERED: MAGNESIUM HYDROXIDE 30 ML UDC PO PRN ×2 (21:30)
[2025-06-28] MEDS ORDERED: ACETAMINOPHEN 325 MG TABLET PO PRN ×2 (21:30)
[2025-06-28] MEDS ORDERED: IV NS 0.9% 1,000 ML IV PRN (21:30)
[2025-06-28] MEDS ORDERED: HEPARIN INFUSION/D5W 500 ML IV PRN (21:30)
[2025-06-28] MEDS ORDERED: GLUCAGON,HUMAN RECOMBINANT 1 MG/VIAL VIAL IM PRN (22:00)
[2025-06-28] MEDS ORDERED: CEFTRIAXONE 1GM BAG (ER ONLY) 50 ML IV ONE (22:42)
[2025-06-28] MEDS: INSULIN GLARGINE, 100 UNIT/ML CARTRIDGE SQ SCH (23:19)
[2025-06-28] MEDS: BLOOD SUGAR DIAGNOSTIC 1 EACH STRIP VI SCH (23:20)
[2025-06-28] MEDS: CEFTRIAXONE 1 G in IV D5W 50 ML IV SCH (23:23)
[2025-06-29] VITALS: BP 151/80; TEMP 97.5; O2SAT 97
[2025-06-29 01:02] LABS: INR 1.16 (0.91-1.10)
[2025-06-29 04:00] VITALS: BP 145/80; TEMP 98.1; O2SAT 99
[2025-06-29 05:20] LABS: PLATELET COUNT (AUTO) 226 K/uL (150-450); RED BLOOD CELL COUNT(AUTO) 4.54 MIL/uL (4.5-6.0); RED CELL DISTRIBUTION WIDTH 15.8 % (11.5-15.0); WHITE BLOOD COUNT (AUTO) 15.3 K/uL (4.3-11.0)
[2025-06-29 05:32] LABS: INR 1.07 (0.91-1.10)
[2025-06-29 05:34] LABS: LDL 177.0 mg/dL (0-99)
[2025-06-29 05:40] LABS: ASPARTATE AMINOTRANSFERASE 23.0 U/L (15-37); CALCIUM, SERUM 8.8 mg/dL (8.5-10.1); CREATININE 1.1 mg/dL (0.6-1.3); IRON, SERUM 58.0 ug/dl (50-175); PHOSPHORUS 3.5 mg/dL (2.5-4.9); SODIUM SERUM 152.0 mmol/L (136-145); TOTAL PROTEIN, SERUM 7.2 g/dL (6.4-8.2); UREA NITROGEN, BLOOD 30.0 mg/dL (7-18)
[2025-06-29] MEDS: INSULIN REGULAR, HUMAN 100 UNIT/ML 3 ML VIAL SQ PRN (07:54)
[2025-06-29 08:00] VITALS: BP 151/84; TEMP 98.4; O2SAT 100
[2025-06-29] MEDS: ZINC SULFATE 220 MG CAPSULE PO SCH (08:52)
[2025-06-29] MEDS: PANTOPRAZOLE 40 MG TABLET.DR PO SCH (08:52)
[2025-06-29] MEDS: MEGESTROL ACETATE SUSP 400 MG/10 ML UDC PO SCH (08:52)
[2025-06-29] MEDS: ASCORBIC ACID 500 MG TABLET PO SCH (08:52)
[2025-06-29] MEDS: MULTIVITAMIN/LUTEIN/MINERALS 1 TAB PO SCH (08:52)
[2025-06-29] MEDS: PROSOURCE / PROSTAT (PYXIS) 30 ML UDC PO SCH (09:00)
[2025-06-29] MEDS ORDERED: DEXTROSE 50%-WATER 50 ML DISP.SYRIN IV PRN (09:30)
[2025-06-29] MEDS ORDERED: INSULIN REGULAR, HUMAN 100 UNIT/ML 3 ML VIAL SQ PRN (09:30)
[2025-06-29] MEDS: HEPARIN INFUSION/D5W 500 ML IV PRN (10:08)
[2025-06-29] MEDS: IV 1/2NS 1000 ML 1,000 ML IV SCH (10:28)
[2025-06-29 11:28] VITALS: BP 130/66; TEMP 97.6; O2SAT 96
[2025-06-29] MEDS ORDERED: BLOOD SUGAR DIAGNOSTIC 1 EACH STRIP IN SCH (12:00)
[2025-06-29 12:56] LABS: INR 2.01 (0.91-1.10)
[2025-06-29] MEDS: CLOTRIMAZOLE/BETAMETASONE DIPROPIONATE 15 GM TUBE TP SCH (14:29)
[2025-06-29 16:00] VITALS: BP 107/66; TEMP 97.5; O2SAT 99
[2025-06-29 21:13] VITALS: BP 112/92; TEMP 97.3; O2SAT 98
[2025-06-29] MEDS: *INSULIN REGULAR(HUMULIN R)HUM 100 UNIT/ML VIAL SQ PRN (21:40)
[2025-06-29 22:40] LABS: INR 1.04 (0.91-1.10)
[2025-06-30 01:11] VITALS: BP 132/78; TEMP 97.3; O2SAT 99
[2025-06-30 04:33] VITALS: BP 118/61; TEMP 97.5; O2SAT 100
[2025-06-30 08:00] VITALS: BP 122/94; TEMP 98.1; O2SAT 99
[2025-06-30 09:39] LABS: PLATELET COUNT (AUTO) 210 K/uL (150-450); RED BLOOD CELL COUNT(AUTO) 4.25 MIL/uL (4.5-6.0); RED CELL DISTRIBUTION WIDTH 15.8 % (11.5-15.0); WHITE BLOOD COUNT (AUTO) 10.3 K/uL (4.3-11.0)
[2025-06-30 09:53] LABS: CALCIUM, SERUM 7.8 mg/dL (8.5-10.1); CREATININE 1.3 mg/dL (0.6-1.3); SODIUM SERUM 137.0 mmol/L (136-145); UREA NITROGEN, BLOOD 19.0 mg/dL (7-18)
[2025-06-30 10:10] LABS: INR 1.04 (0.91-1.10)
[2025-06-30] MEDS: POTASSIUM CHLORIDE 20 MEQ TAB.PRT.SR PO ONE (11:58)
[2025-06-30 16:00] VITALS: BP 114/63; TEMP 98.1; O2SAT 100
[2025-06-30 17:20] LABS: INR 1.04 (0.91-1.10)
[2025-06-30] MEDS: IV 1/2NS 1000 ML 1,000 ML IV PRN (18:20)
[2025-06-30 20:00] VITALS: BP 127/60; TEMP 97.3; O2SAT 92
[2025-06-30] MEDS ORDERED: DEXTROSE 50%-WATER 50 ML DISP.SYRIN IV PRN (22:30)
[2025-06-30] MEDS: INSULIN REGULAR, HUMAN 100 UNIT/ML 10 ML VIAL SQ SCH (23:10)
[2025-07-01] VITALS: BP 126/68; TEMP 98.2; O2SAT 95
[2025-07-01 04:00] VITALS: BP 139/78; TEMP 97.7; O2SAT 94
[2025-07-01] MEDS: BLOOD SUGAR DIAGNOSTIC 1 EACH STRIP IN SCH (06:55)
[2025-07-01] MEDS: INSULIN REGULAR, HUMAN 100 UNIT/ML 3 ML VIAL SQ PRN (06:57)
[2025-07-01 07:45] LABS: INR 1.0 (0.91-1.10); PLATELET COUNT (AUTO) 215 K/uL (150-450); RED BLOOD CELL COUNT(AUTO) 4.70 MIL/uL (4.5-6.0); RED CELL DISTRIBUTION WIDTH 15.5 % (11.5-15.0); WHITE BLOOD COUNT (AUTO) 10.5 K/uL (4.3-11.0)
[2025-07-01 07:57] LABS: CALCIUM, SERUM 9.0 mg/dL (8.5-10.1); CREATININE 0.8 mg/dL (0.6-1.3); SODIUM SERUM 139.0 mmol/L (136-145); UREA NITROGEN, BLOOD 15.0 mg/dL (7-18)
[2025-07-01 08:00] VITALS: BP 136/73; TEMP 97.3; O2SAT 100
[2025-07-01] MEDS: IVERMECTIN 3 MG TABLET PO SCH (08:47)
[2025-07-01] MEDS: HEPARIN SODIUM, PORCINE 5000 UNITS/1 ML VIAL IV ONE ×2 (09:39→18:00)
[2025-07-01 16:00] VITALS: BP 121/77; TEMP 98.2; O2SAT 99
[2025-07-01 21:20] VITALS: BP 132/61; TEMP 97.9; O2SAT 97
[2025-07-01] MEDS: INSULIN GLARGINE, 100 UNIT/ML CARTRIDGE SQ SCH (22:06)
[2025-07-01] MEDS: *INSULIN REGULAR(HUMULIN R)HUM 100 UNIT/ML VIAL SQ PRN (22:10)
[2025-07-01] MEDS: PERMETHRIN 5% CRM 60 GM TUBE TP SCH (22:15)
[2025-07-02] VITALS: BP 133/73; TEMP 97.5; O2SAT 98
[2025-07-02 08:00] VITALS: BP 121/66; TEMP 98.1; O2SAT 100
[2025-07-02 08:26] LABS: PLATELET COUNT (AUTO) 172 K/uL (150-450); RED BLOOD CELL COUNT(AUTO) 3.84 MIL/uL (4.5-6.0); RED CELL DISTRIBUTION WIDTH 15.5 % (11.5-15.0); WHITE BLOOD COUNT (AUTO) 10.6 K/uL (4.3-11.0)
[2025-07-02 08:40] LABS: CALCIUM, SERUM 8.3 mg/dL (8.5-10.1); CREATININE 0.7 mg/dL (0.6-1.3); SODIUM SERUM 139.0 mmol/L (136-145); UREA NITROGEN, BLOOD 8.0 mg/dL (7-18)
[2025-07-02 12:00] VITALS: BP 128/57; TEMP 97.7; O2SAT 98
[2025-07-02 16:00] VITALS: BP 119/62; TEMP 97.9; O2SAT 96
[2025-07-02 16:07] LABS: INR 1.03 (0.91-1.10)
[2025-07-02 20:00] VITALS: BP 133/66; TEMP 98.1; O2SAT 99
[2025-07-03] MEDS ORDERED: Z GUARD REMEDY 4 OZ OINT TP PRN (01:30)
[2025-07-03 08:00] VITALS: BP 121/59; TEMP 97.9; O2SAT 98
[2025-07-03 08:09] LABS: INR 1.08 (0.91-1.10)
[2025-07-03 16:00] VITALS: BP 117/68; TEMP 98; O2SAT 97
[2025-07-03 20:00] VITALS: BP 135/63; TEMP 99.1; O2SAT 97
[2025-07-04 07:30] VITALS: BP 125/63; TEMP 98.1; O2SAT 99
[2025-07-04 07:40] LABS: PLATELET COUNT (AUTO) 324 K/uL (150-450); RED BLOOD CELL COUNT(AUTO) 3.89 MIL/uL (4.5-6.0); RED CELL DISTRIBUTION WIDTH 15.7 % (11.5-15.0); WHITE BLOOD COUNT (AUTO) 11.1 K/uL (4.3-11.0)
[2025-07-04 07:59] LABS: CALCIUM, SERUM 8.3 mg/dL (8.5-10.1); CREATININE 0.7 mg/dL (0.6-1.3); SODIUM SERUM 135.0 mmol/L (136-145); UREA NITROGEN, BLOOD 8.0 mg/dL (7-18)
[2025-07-04 08:16] LABS: INR 1.08 (0.91-1.10)
[2025-07-04 16:00] VITALS: BP 131/68; TEMP 97.5; O2SAT 96
[2025-07-04 20:00] VITALS: BP 117/74; TEMP 98.4; O2SAT 98
[2025-07-05 09:04] VITALS: BP 129/66; TEMP 98.4; O2SAT 99
[2025-07-05 10:08] LABS: INR 1.05 (0.91-1.10)
[2025-07-05] MEDS ORDERED: IV NS 0.9% 250 ML IV ONE (14:22)
[2025-07-05] MEDS ORDERED: IOHEXOL-350 100 ML VIAL IV ONE (14:22)
[2025-07-05] MEDS ORDERED: CT SWABBABLE VALVE TRANS SET 1 EA INFUS.SET MC ONE (14:22)
[2025-07-05 20:00] VITALS: BP 149/60; TEMP 97.9; O2SAT 100
[2025-07-06] MEDS: INSULIN REGULAR, HUMAN 100 UNIT/ML 10 ML VIAL SQ ONE (01:04)
[2025-07-06] MEDS ORDERED: IV NS 0.9% 1,000 ML BAG IV ONE (06:00)
[2025-07-06 07:00] VITALS: BP 132/78; TEMP 98.1; O2SAT 100
[2025-07-06 08:07] VITALS: BP 132/78; TEMP 98.1; O2SAT 100
[2025-07-06 09:59] LABS: PLATELET COUNT (AUTO) 441 K/uL (150-450); RED BLOOD CELL COUNT(AUTO) 3.91 MIL/uL (4.5-6.0); RED CELL DISTRIBUTION WIDTH 15.3 % (11.5-15.0); WHITE BLOOD COUNT (AUTO) 13.0 K/uL (4.3-11.0)
[2025-07-06 10:16] LABS: CALCIUM, SERUM 9.2 mg/dL (8.5-10.1); CREATININE 0.9 mg/dL (0.6-1.3); SODIUM SERUM 142.0 mmol/L (136-145); UREA NITROGEN, BLOOD 12.0 mg/dL (7-18)
[2025-07-06 11:04] LABS: INR 1.04 (0.91-1.10)
[2025-07-06] MEDS: HEPARIN SODIUM, PORCINE 5000 UNITS/1 ML VIAL IV ONE (14:24)
[2025-07-06 16:00] VITALS: BP 145/63; TEMP 98.6; O2SAT 95
[2025-07-06 16:06] VITALS: BP 145/63; TEMP 98.6; O2SAT 98
[2025-07-06 21:58] VITALS: BP 136/86; TEMP 97.9; O2SAT 97
[2025-07-07] MEDS: IV NS 0.9% 1,000 ML BAG IV PRN (05:53)
[2025-07-07 07:28] LABS: PLATELET COUNT (AUTO) 570 K/uL (150-450); RED BLOOD CELL COUNT(AUTO) 3.59 MIL/uL (4.5-6.0); RED CELL DISTRIBUTION WIDTH 15.5 % (11.5-15.0); WHITE BLOOD COUNT (AUTO) 10.3 K/uL (4.3-11.0)
[2025-07-07 08:21] VITALS: BP 147/90; TEMP 98.2; O2SAT 98
[2025-07-07 08:29] LABS: CALCIUM, SERUM 8.6 mg/dL (8.5-10.1); CREATININE 0.7 mg/dL (0.6-1.3); SODIUM SERUM 136.0 mmol/L (136-145); UREA NITROGEN, BLOOD 11.0 mg/dL (7-18)
[2025-07-07 08:30] VITALS: BP 147/90; TEMP 98.2; O2SAT 98
[2025-07-07] MEDS ORDERED: ROPIVACAINE HCL 0.5% 5 MG/ML 30ML VIAL ONE (15:27)
[2025-07-07] MEDS ORDERED: ROCURONIUM BROMIDE 50 MG/5 ML ONE (15:39)
[2025-07-07] MEDS ORDERED: MORPHINE SULFATE INJ 2 MG/ML DISP.SYRIN IV PRN (18:30)
[2025-07-07 20:00] VITALS: BP 122/90; TEMP 97.5; O2SAT 100
[2025-07-07] MEDS: HYDROCODONE/APAP 5/325MG TABLET PO PRN (22:00)
[2025-07-08] MEDS: ARGININE/GLUTAMINE/CALCIUM BMB 1 EACH POWD.PACK PO SCH (09:00)
[2025-07-08 10:52] VITALS: BP 139/75; TEMP 97.9; O2SAT 98
[2025-07-08 12:43] LABS: PLATELET COUNT (AUTO) 704 K/uL (150-450); RED BLOOD CELL COUNT(AUTO) 3.36 MIL/uL (4.5-6.0); RED CELL DISTRIBUTION WIDTH 15.3 % (11.5-15.0); WHITE BLOOD COUNT (AUTO) 12.1 K/uL (4.3-11.0)
[2025-07-08 12:47] LABS: CALCIUM, SERUM 8.7 mg/dL (8.5-10.1); CREATININE 0.8 mg/dL (0.6-1.3); SODIUM SERUM 141.0 mmol/L (136-145); UREA NITROGEN, BLOOD 11.0 mg/dL (7-18)
[2025-07-08 20:00] VITALS: BP 145/77; TEMP 98.1; O2SAT 99
[2025-07-08] MEDS: APIXABAN 5 MG TABLET PO SCH (21:33)
[2025-07-08] MEDS: INSULIN GLARGINE, 100 UNIT/ML CARTRIDGE SQ SCH (22:00)
[2025-07-09 07:00] VITALS: BP 139/96; TEMP 98.1; O2SAT 100
[2025-07-09 08:06] LABS: PLATELET COUNT (AUTO) 635 K/uL (150-450); RED BLOOD CELL COUNT(AUTO) 3.26 MIL/uL (4.5-6.0); RED CELL DISTRIBUTION WIDTH 15.8 % (11.5-15.0); WHITE BLOOD COUNT (AUTO) 11.8 K/uL (4.3-11.0)
[2025-07-09] MEDS: THERAHONEY GEL 1.5 OZ TUBE TP SCH (08:38)
[2025-07-09 08:46] LABS: CALCIUM, SERUM 8.1 mg/dL (8.5-10.1); CREATININE 0.9 mg/dL (0.6-1.3); SODIUM SERUM 136.0 mmol/L (136-145); UREA NITROGEN, BLOOD 11.0 mg/dL (7-18)
[2025-07-09] MEDS ORDERED: APIX5TAB PO (11:18)
[2025-07-09] MEDS ORDERED: INSU100V7 SQ (11:18)
== END 2025-07-09 15:04 | DRG 239 ==
LOC: ER 15:16 → TELE 18:42 → MED 07-02 18:25
PROVIDERS: ADMIT Nurse Practitioner Family; ATTEND Nurse Practitioner Acute Care
PROC: 0Y6D0Z1 Detachment at Left Upper Leg, High, Open Approach (ICD-10-PCS; principal; 2025-07-07 13:00)
DX: E11.51 Type 2 diabetes mellitus with diabetic peripheral angiopathy without gangrene (principal); N17.0 Acute kidney failure with tubular necrosis; E87.0 Hyperosmolality and hypernatremia; E44.1 Mild protein-calorie malnutrition; D68.59 Other primary thrombophilia; I13.0 Hypertensive heart and chronic kidney disease with heart failure and stage 1 through stage 4 chronic kidney disease, or unspecified chronic kidney disease; E88.09 Other disorders of plasma-protein metabolism, not elsewhere classified; N17.9 Acute kidney failure, unspecified; E11.65 Type 2 diabetes mellitus with hyperglycemia; I70.248 Atherosclerosis of native arteries of left leg with ulceration of other part of lower leg; F03.90 Unspecified dementia, unspecified severity, without behavioral disturbance, psychotic disturbance, mood disturbance, and anxiety; N18.9 Chronic kidney disease, unspecified; F20.9 Schizophrenia, unspecified; L97.829 Non-pressure chronic ulcer of other part of left lower leg with unspecified severity; E11.22 Type 2 diabetes mellitus with diabetic chronic kidney disease; E11.10 Type 2 diabetes mellitus with ketoacidosis without coma; E86.0 Dehydration; Z95.1 Presence of aortocoronary bypass graft; Z95.5 Presence of coronary angioplasty implant and graft; Z86.73 Personal history of transient ischemic attack (TIA), and cerebral infarction without residual deficits; I25.10 Atherosclerotic heart disease of native coronary artery without angina pectoris; E78.5 Hyperlipidemia, unspecified; M81.0 Age-related osteoporosis without current pathological fracture; D75.839 Thrombocytosis, unspecified; R13.10 Dysphagia, unspecified; Z79.4 Long term (current) use of insulin; Z91.119 Patient's noncompliance with dietary regimen due to unspecified reason; Z79.899 Other long term (current) drug therapy; Z79.82 Long term (current) use of aspirin; D72.829 Elevated white blood cell count, unspecified; Z98.890 Other specified postprocedural states
CPT/HCPCS: 36415; 71045-TC; 80048-TC; 80061-TC; 80076-TC; 82962-TC; 83540-TC; 83735-TC; 84100-TC; 85025-TC; 85610-TC; 85730-TC; 86850-TC; 87081-TC; 92526; 92611; 93926-TC; 93971-TC; A4223; A6403; G0378; J0690; J0696; J1644; J1815; J2704; J2795; J3490; J7030; J7050; J7060; Q9967

== ENCOUNTER 2025-07-20 17:47 | Inpatient (IN) | payer MEDICARE, OTHER ==
[~2025-07-20] VITALS: Ht 175.3 cm; Wt 72.6 kg
[~2025-07-20 17:47] MED LIST changes: -ACET325T53 PO; +AMIN30LI66 PO; +APIX5TAB PO; -ATOR20TA PO; +CLOT15CR5 TP; +COLL30OI TP; -DEXT38GE12 PO; +GLUCOSE PO; -INSU100I30 SQ; +INSU100V3 SQ; -INSU100V39 SQ; +INSU100V7 SQ; +MAGN400O6 PO; +MEGE400O5 PO; -NUT.237L28 PO; -NYST60PO TP; -PERM60CR6 TP
[2025-07-20 18:34] LABS: RED BLOOD CELL COUNT(AUTO) 3.63 MIL/uL (4.5-6.0); RED CELL DISTRIBUTION WIDTH 14.8 % (11.5-15.0); WHITE BLOOD COUNT (AUTO) 15.2 K/uL (4.3-11.0)
[2025-07-20 18:37] LABS: PLATELET COUNT (AUTO) 997 K/uL (150-450)
[2025-07-20 18:40] LABS: CALCIUM, SERUM 8.8 mg/dL (8.5-10.1); CREATININE 0.7 mg/dL (0.6-1.3); SODIUM SERUM 133 mmol/L (136-145); UREA NITROGEN, BLOOD 15 mg/dL (7-18)
[2025-07-20 19:08] LABS: EOSINOPHILS % (MANUAL) 3 % (0-4); LYMPHOCYTES % (MANUAL) 25 % (16-48); MONOCYTES % (MANUAL) 6 % (0-11.0); NEUTROPHILS % (MANUAL) 65 (42-76); PLATELET ESTIMATE INCREASED; REACTIVE LYMPHOCYTES 1 % (0-0)
[2025-07-20] MEDS: IV NS 0.9% 1,000 ML BAG IV ONE (19:23)
[2025-07-20] MEDS: CEFEPIME 1 GM in IV D5W 50 ML IV ONE (19:26)
[2025-07-20] MEDS: VANCOMYCIN 1 GM in IV D5W 250 ML IV ONE (19:55)
[2025-07-20 21:00] VITALS: BP 148/65; TEMP 97.5; O2SAT 96
[2025-07-20 21:43] VITALS: BP 148/65; TEMP 97.5; O2SAT 96
[2025-07-20] MEDS ORDERED: Z GUARD REMEDY 4 OZ OINT TP PRN (22:30)
[2025-07-20] MEDS ORDERED: ACETAMINOPHEN 325 MG TABLET PO PRN (22:30)
[2025-07-20] MEDS ORDERED: MAGNESIUM HYDROXIDE 30 ML UDC PO PRN (22:30)
[2025-07-20] MEDS ORDERED: ONDANSETRON HCL/PF 4 MG/2 ML VIAL IVP PRN (22:30)
[2025-07-20] MEDS ORDERED: MAG HYDROX/AL HYDROX/SIMETH 30 ML UDC PO PRN (22:30)
[2025-07-20] MEDS ORDERED: DEXTROSE 50%-WATER 50 ML DISP.SYRIN IV PRN (22:30)
[2025-07-20] MEDS ORDERED: DOSING PER PHARMACY-VANCOMYCIN IV XX PRN (22:30)
[2025-07-20] MEDS: IV NS 0.9% 1,000 ML IV PRN (22:53)
[2025-07-21] VITALS: BP 102/85; TEMP 98.4; O2SAT 100
[2025-07-21 00:15] VITALS: BP 102/85; TEMP 98.4; O2SAT 96
[2025-07-21 04:00] VITALS: BP 122/63; TEMP 98.1; O2SAT 99
[2025-07-21] MEDS: BLOOD SUGAR DIAGNOSTIC 1 EACH STRIP IN SCH (06:25)
[2025-07-21] MEDS: INSULIN REGULAR, HUMAN 100 UNIT/ML 3 ML VIAL SQ PRN (06:29)
[2025-07-21 06:31] LABS: PLATELET COUNT (AUTO) 875 K/uL (150-450); RED BLOOD CELL COUNT(AUTO) 3.35 MIL/uL (4.5-6.0); RED CELL DISTRIBUTION WIDTH 15.0 % (11.5-15.0); WHITE BLOOD COUNT (AUTO) 13.3 K/uL (4.3-11.0)
[2025-07-21] MEDS: PANTOPRAZOLE 40 MG TABLET.DR PO SCH (06:34)
[2025-07-21 06:54] LABS: CALCIUM, SERUM 8.4 mg/dL (8.5-10.1); CREATININE 0.8 mg/dL (0.6-1.3); PHOSPHORUS 3.0 mg/dL (2.5-4.9); SODIUM SERUM 133.0 mmol/L (136-145); UREA NITROGEN, BLOOD 14.0 mg/dL (7-18)
[2025-07-21 07:10] LABS: APPEARANCE,URINE CLOUDY (CLEAR); BLOOD, URINE TRACE-INTA Ery/uL (NEGATIVE); LEUKOCYTE ESTERASE ,URINE 2+ (NEGATIVE); NITRITE, URINE NEGATIVE (NEGATIVE); UGLUCOSE NEGATIVE (NEGATIVE)
[2025-07-21 07:21] LABS: ADD URINE CULTURE YES; SQUAMOUS EPITHELIAL CELL,UR None Seen /HPF (None Seen); YEAST,URINE Moderate /HPF (None Seen)
[2025-07-21 08:00] VITALS: BP 110/61; TEMP 98.1; O2SAT 99
[2025-07-21] MEDS: VANCOMYCIN 750 MG in IV D5W 250 ML IV SCH (08:53)
[2025-07-21] MEDS: CEFEPIME 1 GM in IV D5W 50 ML IV SCH (09:57)
[2025-07-21] MEDS: THERAHONEY GEL 1.5 OZ TUBE TP SCH (10:45)
[2025-07-21] MEDS: ENOXAPARIN SODIUM 80 MG/0.8 ML DISP.SYRIN SQ ONE (14:07)
[2025-07-21 16:00] VITALS: BP 124/64; TEMP 98.1; O2SAT 99
[2025-07-21 20:00] VITALS: BP 118/74; TEMP 97.8; O2SAT 98
[2025-07-21] MEDS: FLUCONAZOLE IN NS 100 MG in PREMIX 1 EA IV SCH (21:20)
[2025-07-22] VITALS: BP 138/69; TEMP 97.8; O2SAT 99
[2025-07-22 04:00] VITALS: BP 122/64; TEMP 97.5; O2SAT 99
[2025-07-22] MEDS ORDERED: IV NS 0.9% 1,000 ML IV PRN (06:00)
[2025-07-22 07:49] LABS: PLATELET COUNT (AUTO) 881 K/uL (150-450); RED BLOOD CELL COUNT(AUTO) 3.19 MIL/uL (4.5-6.0); RED CELL DISTRIBUTION WIDTH 14.9 % (11.5-15.0); WHITE BLOOD COUNT (AUTO) 11.3 K/uL (4.3-11.0)
[2025-07-22 07:57] LABS: CALCIUM, SERUM 8.4 mg/dL (8.5-10.1); CREATININE 0.8 mg/dL (0.6-1.3); SODIUM SERUM 136.0 mmol/L (136-145); UREA NITROGEN, BLOOD 13.0 mg/dL (7-18)
[2025-07-22 08:00] VITALS: BP 126/74; TEMP 98.2; O2SAT 99
[2025-07-22 08:05] LABS: INR 1.09 (0.91-1.10)
[2025-07-22 09:05] LABS: PHOSPHORUS 2.3 mg/dL (2.5-4.9)
[2025-07-22 11:30] VITALS: BP 117/55; TEMP 99.3; O2SAT 98
[2025-07-22] MEDS ORDERED: FENTANYL PF 100MCG/2ML AMPUL ONE (14:47)
[2025-07-22] MEDS ORDERED: MIDAZOLAM HCL 2 MG/2ML VIAL ONE (14:47)
[2025-07-22] MEDS: K PHOS NEUTRAL 250 MG TABLET PO ONE (16:00)
[2025-07-22 20:00] VITALS: BP 129/86; TEMP 97.7; O2SAT 100
[2025-07-22] MEDS: APIXABAN 5 MG TABLET PO SCH (20:37)
[2025-07-22] MEDS: INSULIN GLARGINE, 100 UNIT/ML CARTRIDGE SQ SCH (21:22)
[2025-07-23 07:00] VITALS: BP 128/55; TEMP 98.1; O2SAT 99
[2025-07-23 08:01] LABS: PLATELET COUNT (AUTO) 828 K/uL (150-450); RED BLOOD CELL COUNT(AUTO) 3.53 MIL/uL (4.5-6.0); RED CELL DISTRIBUTION WIDTH 15.3 % (11.5-15.0); WHITE BLOOD COUNT (AUTO) 12.7 K/uL (4.3-11.0)
[2025-07-23 08:24] LABS: CALCIUM, SERUM 8.1 mg/dL (8.5-10.1); CREATININE 0.8 mg/dL (0.6-1.3); SODIUM SERUM 137.0 mmol/L (136-145); UREA NITROGEN, BLOOD 12.0 mg/dL (7-18)
[2025-07-23] MEDS: HYDROCODONE/APAP 5/325MG TABLET PO PRN (09:50)
[2025-07-23 11:00] VITALS: BP 119/57; TEMP 98.4; O2SAT 99
[2025-07-23 15:00] VITALS: BP 129/57; TEMP 97.9; O2SAT 98
[2025-07-23 20:00] VITALS: BP 166/100; TEMP 97.9; O2SAT 97
[2025-07-24] VITALS: BP 152/68; TEMP 97.9; O2SAT 97
[2025-07-24 04:00] VITALS: BP 129/64; TEMP 97.9; O2SAT 97
[2025-07-24 07:00] VITALS: BP 132/73; TEMP 97.7; O2SAT 99
[2025-07-24 07:54] LABS: PLATELET COUNT (AUTO) 782 K/uL (150-450); RED BLOOD CELL COUNT(AUTO) 3.26 MIL/uL (4.5-6.0); RED CELL DISTRIBUTION WIDTH 15.2 % (11.5-15.0); WHITE BLOOD COUNT (AUTO) 14.6 K/uL (4.3-11.0)
[2025-07-24 08:03] LABS: CALCIUM, SERUM 7.9 mg/dL (8.5-10.1); CREATININE 0.8 mg/dL (0.6-1.3); SODIUM SERUM 136.0 mmol/L (136-145); UREA NITROGEN, BLOOD 7.0 mg/dL (7-18)
[2025-07-24 08:06] LABS: PHOSPHORUS 2.5 mg/dL (2.5-4.9)
[2025-07-24] MEDS: CEFEPIME 2 GM in IV D5W 100 ML IV SCH (09:47)
[2025-07-24] MEDS: POTASSIUM CHLORIDE 20 MEQ POWDER PACKET PO SCH (09:47)
[2025-07-24 11:00] VITALS: BP 157/82; TEMP 97.9; O2SAT 99
[2025-07-24 15:00] VITALS: BP 142/76; TEMP 97.7; O2SAT 96
[2025-07-24 20:00] VITALS: BP 138/77; TEMP 97.9; O2SAT 97
[2025-07-25 07:16] LABS: CALCIUM, SERUM 8.6 mg/dL (8.5-10.1); CREATININE 0.7 mg/dL (0.6-1.3); SODIUM SERUM 132.0 mmol/L (136-145); UREA NITROGEN, BLOOD 10.0 mg/dL (7-18)
[2025-07-25 08:00] VITALS: BP 136/60; TEMP 98.1; O2SAT 100
[2025-07-25] MEDS ORDERED: HYDR-4303 PO (10:38)
[2025-07-25] MEDS ORDERED: NYST15PO4 TP (10:38)
[2025-07-25] MEDS ORDERED: INSU100V7 SQ (10:38)
[2025-07-25] MEDS ORDERED: NA P133E RC (10:38)
[2025-07-25] MEDS ORDERED: *INSULIN REGULAR(HUMULIN R)HUM 100 UNIT/ML VIAL SQ PRN (12:30)
[2025-07-25] MEDS: INSULIN GLARGINE, 100 UNIT/ML CARTRIDGE SQ SCH (13:13)
[2025-07-25 16:00] VITALS: BP 139/70; TEMP 99.3; O2SAT 98
[2025-07-25] MEDS: INSULIN REGULAR, HUMAN 100 UNIT/ML 3 ML VIAL SQ PRN (17:45)
[2025-07-25 20:57] VITALS: BP 139/70; TEMP 99.3; O2SAT 98
[2025-07-25 20:58] VITALS: BP 136/69; TEMP 98.4; O2SAT 98
[2025-07-25] MEDS ORDERED: MEROPENEM 1 G in IV NS 0.9% 100 ML IV ONE (21:00)
[2025-07-25] MEDS ORDERED: MEROPENEM 1 G VIAL IV ONE (23:15)
[2025-07-26] MEDS: MEROPENEM 1 G in IV NS 0.9% 100 ML IV ONE (00:22)
[2025-07-26 07:49] LABS: CALCIUM, SERUM 7.9 mg/dL (8.5-10.1); CREATININE 0.8 mg/dL (0.6-1.3); SODIUM SERUM 134.0 mmol/L (136-145); UREA NITROGEN, BLOOD 10.0 mg/dL (7-18)
[2025-07-26 08:00] VITALS: BP 136/68; TEMP 99; O2SAT 100
[2025-07-26] MEDS: MEROPENEM 1 G in IV NS 0.9% 100 ML IV SCH (08:51)
[2025-07-26] MEDS ORDERED: MERO1VIA23 IV (10:57)
[2025-07-26 11:22] LABS: PLATELET COUNT (AUTO) 888 K/uL (150-450); RED BLOOD CELL COUNT(AUTO) 3.47 MIL/uL (4.5-6.0); RED CELL DISTRIBUTION WIDTH 15.3 % (11.5-15.0); WHITE BLOOD COUNT (AUTO) 15.8 K/uL (4.3-11.0)
[2025-07-26 16:00] VITALS: BP 157/83; TEMP 99; O2SAT 99
== END 2025-07-26 18:52 | DRG 500 ==
LOC: ER 17:50 → TELE 20:29 → MED 07-24 11:29
PROVIDERS: ADMIT Nurse Practitioner Acute Care; ATTEND Nurse Practitioner Family
PROC: 0KBR0ZZ Excision of Left Upper Leg Muscle, Open Approach (ICD-10-PCS; principal; 2025-07-22 15:00)
DX: T87.44 Infection of amputation stump, left lower extremity (principal); A41.9 Sepsis, unspecified organism; G93.41 Metabolic encephalopathy; L89.150 Pressure ulcer of sacral region, unstageable; I11.0 Hypertensive heart disease with heart failure; E87.1 Hypo-osmolality and hyponatremia; D68.59 Other primary thrombophilia; I50.9 Heart failure, unspecified; B96.1 Klebsiella pneumoniae [K. pneumoniae] as the cause of diseases classified elsewhere; L03.116 Cellulitis of left lower limb; L02.416 Cutaneous abscess of left lower limb; Z79.01 Long term (current) use of anticoagulants; E11.51 Type 2 diabetes mellitus with diabetic peripheral angiopathy without gangrene; F03.90 Unspecified dementia, unspecified severity, without behavioral disturbance, psychotic disturbance, mood disturbance, and anxiety; R56.9 Unspecified convulsions; F20.9 Schizophrenia, unspecified; B37.49 Other urogenital candidiasis; D75.839 Thrombocytosis, unspecified; E78.5 Hyperlipidemia, unspecified; Y83.5 Amputation of limb(s) as the cause of abnormal reaction of the patient, or of later complication, without mention of misadventure at the time of the procedure; Z86.73 Personal history of transient ischemic attack (TIA), and cerebral infarction without residual deficits; Y92.129 Unspecified place in nursing home as the place of occurrence of the external cause; I25.10 Atherosclerotic heart disease of native coronary artery without angina pectoris; Z95.1 Presence of aortocoronary bypass graft; Z98.61 Coronary angioplasty status; Z98.890 Other specified postprocedural states; K29.70 Gastritis, unspecified, without bleeding; M81.0 Age-related osteoporosis without current pathological fracture; Z86.16 Personal history of COVID-19; Z79.4 Long term (current) use of insulin; Z79.82 Long term (current) use of aspirin; Z79.899 Other long term (current) drug therapy; L22 Diaper dermatitis; Z74.09 Other reduced mobility
CPT/HCPCS: 36415; 71045-TC; 73552; 80048-TC; 80202-TC; 81001; 82962-TC; 83605-TC; 83735-TC; 84100-TC; 85025-TC; 85027-TC; 85610-TC; 85652-TC; 85730-TC; 86140-TC; 86850-TC; 87040-TC; 87070-TC; 87075-TC; 87081-TC; 87086-TC; 87186-TC; A4216; A4217; A4223; A6253; A6254; A6403; G0378; J0690; J0692; J1450; J1650; J1815; J1885; J2185; J2250; J2405; J2704; J3010; J3373; J3374; J3490; J7030; J7060

== ENCOUNTER 2025-07-28 20:08 | Emergency (ER) | payer MEDICARE, OTHER ==
[~2025-07-28] VITALS: Ht 182.9 cm; Wt 68.0 kg
[~2025-07-28 20:08] MED LIST changes: -CLOT15CR5 TP; +HYDR-4303 PO; -IVER3TAB2 PO; +MERO1VIA23 IV; +NA P133E RC; +NYST15PO4 TP
[2025-07-28 20:22] VITALS: BP 158/72; TEMP 97.8; O2SAT 98
== END 2025-07-28 20:53 ==
LOC: ER 20:14
DX: S81.002A Unspecified open wound, left knee, initial encounter (principal); I11.9 Hypertensive heart disease without heart failure; F03.90 Unspecified dementia, unspecified severity, without behavioral disturbance, psychotic disturbance, mood disturbance, and anxiety; E78.5 Hyperlipidemia, unspecified; E11.9 Type 2 diabetes mellitus without complications; I25.10 Atherosclerotic heart disease of native coronary artery without angina pectoris; M81.0 Age-related osteoporosis without current pathological fracture; Z79.01 Long term (current) use of anticoagulants; Z79.82 Long term (current) use of aspirin; Z79.899 Other long term (current) drug therapy; Z86.16 Personal history of COVID-19; Z86.73 Personal history of transient ischemic attack (TIA), and cerebral infarction without residual deficits; Z87.19 Personal history of other diseases of the digestive system; Z98.61 Coronary angioplasty status; Z98.890 Other specified postprocedural states; X58.XXXA Exposure to other specified factors, initial encounter; Y93.89 Activity, other specified; Y92.89 Other specified places as the place of occurrence of the external cause; Y99.9 Unspecified external cause status